=== PATIENT | male | born 1945 | race Caucasian/White ===

== ENCOUNTER 2017-01-12 21:35 | Emergency (ER) | payer MEDICARE, OTHER ==
--- NOTE | 2017-01-12 21:57 | ERPHSYRPT ---
- History of Present Illness Time Seen by Provider: 01/12/17 21:56 Source: patient Exam Limitations: no limitations Patient Subjective Stated Complaint: pt states he began having ruq abd pain radiating into his rt chest approx 2 hours ago. Triage Nursing Assessment: pt alert and oriented, answers questions approp. pt ambulatory with steady gait noted, skin quesada, warm, and dry. abd soft and nontender to light palpation, bowel sounds present. respirations nonlabored with lungs cta. Physician History: ABOUT 6 HOURS AGO PT ATE BEANS AND ONIONS AND 3 HOURS LATER STARTED WITH RUQ/ EPIGASTRIC ABDOMINAL PAIN RADIATING TO THE LOWER CHEST WITH DIAPHORESIS. PT VOMITED X1 IN ER. PT DENIES FEVER, SHORTNESS OF AIR, DIARRHEA. Allergies/Adverse Reactions: Penicillins Allergy (Verified 01/12/17 21:58) Swelling of Tongue and Lips Home Medications: Amlodipine Besylate 5 mg [Norvasc 5 mg] 5 mg PO DAILY 01/12/17 [History] Lisinopril 20 mg [Zestril 20 MG] 20 mg PO DAILY 01/12/17 [History] Hx Tetanus, Diphtheria Vaccination/Date Given: No Hx Influenza Vaccination/Date Given: No Hx Pneumococcal Vaccination/Date Given: Yes Immunizations Up to Date: No - Review of Systems Constitutional: No Fever Cardiac: Chest Pain Abdominal/Gastrointestinal: Abdominal Pain, Vomiting, No Diarrhea Endocrine: Excessive Sweating All Other Systems: Reviewed and Negative - Social History Smoking Status: Never smoker Exposure to second hand smoke: No Patient Lives Alone: No - Nursing Vital Signs Nursing Vital Signs: Initial Vital Signs Temperature 97.6 F 01/12/17 21:40 Pulse Rate 86 01/12/17 21:40 Respiratory Rate 18 01/12/17 21:40 Blood Pressure 181/103 01/12/17 21:40 O2 Sat by Pulse Oximetry 95 01/12/17 21:40 Pain Scale Pain Intensity 7 - Physical Exam General Appearance: alert Eye Exam: PERRL/EOMI Ears, Nose, Throat Exam: TMs normal, pharynx normal, moist mucous membranes Neck Exam: normal inspection Respiratory Exam: lungs clear Cardiovascular Exam: normal heart sounds Gastrointestinal/Abdomen Exam: soft, normal bowel sounds, No tenderness Back Exam: normal range of motion Extremity Exam: normal inspection, No pedal edema Neurologic Exam: alert, cooperative Skin Exam: warm, dry SpO2 Interpretation: normal SpO2: 95 Oxygen Delivery: Room Air - Course Nursing assessment & vital signs reviewed: Yes EKG Interpreted by Me: RATE (90), Sinus Rhythm, NORMAL AXIS, LAFB, NORMAL INTERVALS - Radiology Exams Chest X-ray Interpretation: Interpreted by me, No Pneumonia - CT Exams Abdomen/Pelvis CT Interpretation: Tele-radiologist Report (NO ACUTE FINDINGS) Ordered Tests: Active Orders 24 hr Category Date Time Status Ceramics Teacher STAT Care 01/12/17 22:02 Active Clean Catch Urine Specimen STAT Care 01/12/17 22:01 Active EKG-ER Only STAT Care 01/12/17 22:04 Active IV Insertion STAT Care 01/12/17 22:01 Active Pulse Oximetry (ED) STAT Care 01/12/17 22:01 Active ABDOMEN AND PELVIS W/0 CONTRAS [CT] Stat Exams 01/12/17 22:03 Taken CHEST 1 VIEW (PORTABLE) Stat Exams 01/12/17 22:01 Taken AMYLASE Stat Lab 01/12/17 22:10 Completed CBC W DIFF Stat Lab 01/12/17 22:10 Completed CMP Stat Lab 01/12/17 22:10 Completed LIPASE Stat Lab 01/12/17 22:10 Completed MAGNESIUM Stat Lab 01/12/17 22:10 Completed TROPONIN Q3H Lab 01/12/17 22:10 Completed TROPONIN Q3H Lab 01/13/17 01:15 Ordered TROPONIN Q3H Lab 01/13/17 04:15 Ordered TROPONIN Q3H Lab 01/13/17 07:15 Ordered TROPONIN Q3H Lab 01/13/17 10:15 Ordered UA W/RFX UR CULTURE Stat Lab 01/12/17 22:01 Ordered Medication Summary Discontinued Medications Generic Name Dose Route Start Last Admin Trade Name Freq PRN Reason Stop Dose Admin Hydromorphone HCl 1 mg 01/12/17 22:03 01/12/17 22:13 Hydromorphone 1 Mg/Ml Ampule IV 01/12/17 22:04 1 mg STAT ONE Administration Hydromorphone HCl Confirm 01/12/17 22:08 Hydromorphone 1 Mg/Ml Ampule Administered 01/12/17 22:09 Dose 1 mg .ROUTE .STK-MED ONE Sodium Chloride 1,000 mls @ 999 mls/hr 01/12/17 22:01 01/12/17 22:14 Sodium Chloride 0.9% 1000 Ml IV 01/12/17 23:01 999 mls/hr .Q1H1M STA Administration Sodium Chloride Confirm 01/12/17 22:09 Sodium Chloride 0.9% 1000 Ml Administered 01/12/17 22:10 Dose 1,000 mls @ ud .ROUTE .STK-MED ONE Promethazine HCl 12.5 mg 01/12/17 22:01 01/12/17 22:14 Phenergan 25 Mg Inj IV 01/12/17 22:02 12.5 mg STAT ONE Administration Promethazine HCl Confirm 01/12/17 22:09 Phenergan 25 Mg Inj Administered 01/12/17 22:10 Dose 25 mg .ROUTE .STK-MED ONE Lab/Rad Data: Laboratory Result Diagrams 01/12/17 22:10 01/12/17 22:10 Laboratory Results 01/12/17 01/12/17 01/12/17 Range/Units 22:10 22:10 22:10 WBC 6.6 (4.0-10.5) K/mm3 RBC 4.53 (4.1-5.6) M/mm3 Hgb 13.6 (12.5-18.0) gm/dl Hct 38.6 L (42-50) % MCV 85.2 (78-100) fl MCH 30.0 (26-32) pg MCHC 35.2 (32-36) g/dl RDW 13.1 (11.5-14.0) % Plt Count 216 (150-450) K/mm3 MPV 10.0 H (6-9.5) fl Gran % 73.8 H (36.0-66.0) % Lymphocytes % 14.0 L (24.0-44.0) % Monocytes % 10.9 (0.0-12.0) % Eosinophils % 1.1 (0.00-5.0) % Basophils % 0.2 (0.0-0.4) % Basophils # 0.01 (0-0.4) Sodium 132 L (136-145) mEq/L Potassium 3.6 (3.5-5.1) mEq/L Chloride 95 L (98-107) mEq/L Carbon Dioxide 25.3 (21-32) mEq/L Anion Gap 15.6 H (5-15) MEQ/L BUN 11 (9-20) mg/dL Creatinine 0.80 (0.55-1.30) mg/dl Estimated GFR > 60 ML/MIN Glucose 140 H (70-110) MG/DL Calcium 9.4 (8.5-10.1) mg/dL Magnesium 1.9 (1.8-2.4) mg/dL Total Bilirubin 0.70 (0.2-1.0) mg/dL AST 27 (15-37) U/L ALT 41 (12-78) U/L Alkaline Phosphatase 117 H (46-116) U/L Troponin I < 0.017 (0.000-0.056) ng/ml Serum Total Protein 7.9 (6.4-8.2) gm/dL Albumin 4.5 (3.4-5.0) g/dL Amylase 43 (25-115) U/L Lipase 147 (73-393) U/L - Departure Time of Disposition: 23:23 Departure Disposition: Home Clinical Impression: ABDOMINAL PAIN, CHEST PAIN, VOMITING Condition: Stable Critical Care Time: No Referrals: JEFERSON LANCASTER [Primary Care Provider] - Instructions: Abdominal Pain-Adult Additional Instructions: FOLLOW UP WITH PRIVATE DOCTOR TOMORROW. RETURN TO [facility] FOR GALLBLADDER ULTRASOUND. Prescriptions: Promethazine HCl 25 mg [Phenergan 25 mg] 25 mg PO Q4H PRN PRN #14 tablet PRN Reason: Nausea/Vomiting
[2017-01-12] MEDS ORDERED: Hydromorphone 1 mg/ml Ampule ONE ×2 (22:08→23:58)
[2017-01-12] MEDS ORDERED: Phenergan 25 MG INJ ONE (22:09)
[2017-01-12] MEDS ORDERED: Sodium Chloride 0.9% 1000 ML 1,000 ML ONE (22:09)
[2017-01-12] MEDS: Hydromorphone 1 mg/ml Ampule IV ONE (22:13)
[2017-01-12] MEDS: Sodium Chloride 0.9% 1000 ML 1,000 ML IV STA (22:14)
[2017-01-12] MEDS: Phenergan 25 MG INJ IV ONE (22:14)
[2017-01-12 22:15] LABS: BASOPHIL % 0.2 % (0.0-0.4); Eosinophil % 1.1 % (0.00-5.0); Granulocytes % 73.8 % (36.0-66.0); Mean Cell Volume 85.2 fl (78-100); Monocytes % 10.9 % (0.0-12.0); Platelet Count 216 K/mm3 (150-450); Red Blood Count 4.53 M/mm3 (4.1-5.6); Red Cell Distribution Width 13.1 % (11.5-14.0); White Blood Count 6.6 K/mm3 (4.0-10.5)
[2017-01-12 22:35] LABS: ALBUMIN 4.5 g/dL (3.4-5.0); ALKALINE PHOSPHATASE 117 U/L (46-116); ANION GAP 15.6 MEQ/L (5-15); BLOOD UREA NITROGEN 11 mg/dL (9-20); CHLORIDE 95 mEq/L (98-107); Carbon Dioxide 25.3 mEq/L (21-32); Glucose 140 MG/DL (70-110); LIPASE 147 U/L (73-393); MAGNESIUM 1.9 mg/dL (1.8-2.4); Potassium 3.6 mEq/L (3.5-5.1); SGOT/AST 27 U/L (15-37); SGPT/ALT 41 U/L (12-78); SODIUM 132 mEq/L (136-145); Total Protein 7.9 gm/dL (6.4-8.2)
[2017-01-12 23:38] LABS: ADD URINE CULTURE? NO (NO); Bilirubin NEGATIVE (NEGATIVE); Blood NEGATIVE Ery/ul (0-5); COMPLETE URINE MICROSCOPIC? NO; Collection Type VOID; Glucose NEGATIVE (NEGATIVE); Leukocyte Esterase NEGATIVE (NEGATIVE)
[2017-01-12] MEDS ORDERED: Zofran 4 MG/2 ML VIAL ONE (23:58)
[2017-01-13] MEDS: Hydromorphone 1 mg/ml Ampule IV ONE (00:02)
[2017-01-13] MEDS: Zofran 4 MG/2 ML VIAL IV ONE (00:02)
[2017-01-13 00:34] VITALS: BP 138/73; PULSE 72; O2SAT 97
--- NOTE | 2017-01-13 15:06 | XRAY ---
Exam: AP 70 semi-upright portable chest film from 2246 hrs. on 01/12/2017. Comparison: Two-view chest from 12/15/2016. Indication: Right upper quadrant abdominal pain 4 hours. Findings: The film was obtained in a mildly lordotic projection. The transverse heart size is normal. I believe there is some minimal curvilinear scarring or atelectasis at the medial right lung base. This correlates well with the current CT of the abdomen/pelvis. Otherwise, the lung velázquez appear clear. No vascular congestion, pneumothorax, or pleural fluid is seen. The heart size is normal. No mediastinal widening or shift is seen. There is mild tortuosity of the descending thoracic aorta. The bones appear grossly intact. Impression: 1. No acute cardiopulmonary process is seen. 2. I suspect minimal curvilinear scarring or atelectasis at the medial right lung base as an incidental note.
--- NOTE | 2017-01-13 15:07 | XRAY ---
Exam: CT of the abdomen and pelvis without IV contrast from 01/12/2017. CTDI: 24.04 Comparison: None. Indication: 71-year-old male with right upper quadrant abdominal pain 4 hours associated with nausea/vomiting. Technique: Non-IV contrast axial images were obtained through the abdomen and pelvis. Reconstructed coronal and sagittal images were created and reviewed. Findings: AP and lateral CT projector operator images reveal a mild upper lumbar rotary dextroscoliosis centered at L2-L3. In addition, moderate multilevel degenerative disc disease is seen throughout the lumbar spine. On the CT images, the lung bases are remarkable for minimal linear scarring or atelectasis at the anterior medial right lung base. There appears to be a small hiatal hernia. Abundant secretions mixed with some high attenuation material which may relate to a GI cocktail is seen within the gastric lumen. The transverse heart size is normal. Some right and left coronary artery vascular calcification is seen. Correlate clinically. The liver appears unremarkable on this non-IV contrast image. The gallbladder is distended and reveals a small amount of high attenuation density within its posterior dependent aspect suggestive of gallstones. No definite intrahepatic or extrahepatic biliary duct distention is seen. The spleen, pancreas, and adrenal glands appear unremarkable. The kidneys are of unremarkable size and shape. No renal stone or hydronephrosis is seen. There is a subtle small low-attenuation density within the peripheral middle third of the right kidney on axial image #31 which might represent a tiny cyst. Atherosclerotic facet calcification is seen within the abdominal aorta and its branches. No abdominal aortic aneurysm or abnormal retroperitoneal lymphadenopathy is seen. I do note some tortuosity of the abdominal aorta and proximal iliac arteries. No free intraperitoneal air is seen. The anterior abdominal wall appears intact. I see no evidence of bowel obstruction. I see no findings of appendicitis within the right lower quadrant. Mild descending colon and sigmoid colon diverticulosis without evidence of acute diverticulitis is seen. There is moderate distention of the urinary bladder which appears grossly unremarkable. No urinary bladder stones are seen. The prostate gland is mildly enlarged measuring 5.6 cm in width and 4.6 cm in AP depth on axial image #80. No enlarged pelvic lymph nodes or free intraperitoneal fluid is seen. The skeleton reveals no acute fracture. No suspicious osteolytic or osteoblastic bone lesions are seen. I again note a mild upper lumbar rotary dextroscoliosis and multilevel moderate degenerative disc disease, affecting L-1L2 through L4L5 primarily. Impression: 1. There is a small hiatal hernia present with secretions and high attenuation material within it which may relate to gastroesophageal reflux. Correlate clinically. 2. In addition, there is a small amount of high attenuation material within the posterior dependent portion of the gallbladder suggestive of cholelithiasis. No gallbladder enlargement, gallbladder wall thickening, or biliary duct distention is seen. 3. Normal appendix. 4. Mild diverticulosis is seen throughout the descending colon and sigmoid colon. No acute diverticulitis is seen. 5. No other acute process is seen within the abdomen or pelvis. 6. Mild enlargement of the prostate gland. 7. Skeletal findings as discussed above.
== END 2017-01-13 00:37 | disposition home or self-care (01) ==
LOC: ED 21:35
DX: R10.9 Unspecified abdominal pain (principal); R07.9 Chest pain, unspecified; R11.10 Vomiting, unspecified
CPT/HCPCS: 36000; 36415; 71010; 74176; 80053; 81002; 82150; 83690; 83735; 84484; 85025; 93005; 93041; 96374; 96375; 96376; 99284; J1170; J2405; J2550

== ENCOUNTER 2017-01-15 04:35 | Inpatient (IN) | payer MEDICARE, OTHER ==
[2017-01-15] MEDS ORDERED: Hydromorphone 1 mg/ml Ampule IV ONE (04:59)
[2017-01-15] MEDS ORDERED: Sodium Chloride 0.9% 1000 ML 1,000 ML IV STA ×2 (04:59→05:21)
[2017-01-15] MEDS ORDERED: Phenergan 25 MG INJ IV ONE (04:59)
--- NOTE | 2017-01-15 05:07 | ERPHSYRPT ---
- History of Present Illness Time Seen by Provider: 01/15/17 04:50 Historian: patient Exam Limitations: no limitations Patient Subjective Stated Complaint: pt states he was seen in the er on wednesday and had a gallbladder us on wednesday. stated he ate some jello tonght and has increased pain in his luq. Triage Nursing Assessment: pt alert and oriented, asnwers questions approp. skin quesada, hot and dry. pt ambulatory with steady gait ntoed. respirations tachy , nonlabored, lungs cta. abd soft, tenderness to light palpation to luq. bowel sounds hypo. Physician History: FOUR DAYS AGO PT HAD RUQ ABDOMINAL/EPIGASTRIC PAIN AND DIAPHORESIS WITH VOMITING X1. PT CAME TO [facility] ER WHERE A CT-SCAN OF THE ABDOMEN/PELVIS TELE- RADIOLOGIST REPORT REVEALED NO ACUTE FINDINGS. FOR THE PAST 2 DAYS PT HAS HAD DIARRHEA, THIRST, SUBJECTIVE FEVER AND CHILLS. PT HAD A GALLBLADDER ULTRASOUND YESTERDAY WITH ABDOMINAL ULTRASOUND WORKSHEET SHOWING SLUDGE AND STONES. PT RETURNS TO ER TONIGHT AFTER THE PAIN RETURNED 5 HOURS AGO. Allergies/Adverse Reactions: Penicillins Allergy (Verified 01/12/17 21:58) Swelling of Tongue and Lips Home Medications: Amlodipine Besylate 5 mg [Norvasc 5 mg] 5 mg PO DAILY 01/12/17 [History] Lisinopril 20 mg [Zestril 20 MG] 20 mg PO DAILY 01/12/17 [History] Hx Tetanus, Diphtheria Vaccination/Date Given: No Hx Influenza Vaccination/Date Given: No Hx Pneumococcal Vaccination/Date Given: Yes Immunizations Up to Date: No - Review of Systems Constitutional: Fever, Chills, Other (THIRST) Abdominal/Gastrointestinal: Abdominal Pain, Diarrhea All Other Systems: Reviewed and Negative - Past Medical History Pertinent Past Medical History: Yes Cardiac History: Hypertension - Past Surgical History Past Surgical History: No - Social History Smoking Status: Never smoker Exposure to second hand smoke: No Drug Use: none Patient Lives Alone: No - Nursing Vital Signs Nursing Vital Signs: Initial Vital Signs Temperature 100.0 F 01/15/17 04:37 Pulse Rate 127 H 01/15/17 04:37 Respiratory Rate 28 H 01/15/17 04:37 Blood Pressure 118/73 01/15/17 04:37 O2 Sat by Pulse Oximetry 97 01/15/17 04:37 Pain Scale Pain Intensity 0 - Physical Exam General Appearance: alert Eye Exam: PERRL/EOMI Ears, Nose, Throat Exam: dry mucous membranes Neck Exam: normal inspection Respiratory Exam: lungs clear Cardiovascular Exam: tachycardia Gastrointestinal/Abdomen Exam: soft, normal bowel sounds, tenderness (MILD RUQ ABDOMINAL TENDERNESS), No guarding Back Exam: normal range of motion Extremity Exam: normal inspection, No pedal edema Neurologic Exam: alert, cooperative Skin Exam: warm, dry SpO2 Interpretation: normal SpO2: 97 Oxygen Delivery: Room Air - Course Nursing assessment & vital signs reviewed: Yes Ordered Tests: Active Orders 24 hr Category Date Time Status IV Insertion STAT Care 01/15/17 04:59 Active AMYLASE Stat Lab 01/15/17 04:50 Completed BLOOD CULTURE Stat Lab 01/15/17 05:20 Received BMP Stat Lab 01/15/17 06:14 Stop Req CBC W DIFF Stat Lab 01/15/17 04:50 Completed CMP Stat Lab 01/15/17 04:50 Completed LIPASE Stat Lab 01/15/17 04:50 Completed Lactic Acid Stat Lab 01/15/17 Stop Req Lactic Acid Stat Lab 01/15/17 05:20 Results MAG [MAGNESIUM] Stat Lab 01/15/17 04:50 Completed MAGNESIUM Stat Lab 01/15/17 06:14 Stop Req Manual Differential NC Stat Lab 01/15/17 04:50 Completed UA W/RFX UR CULTURE Stat Lab 01/15/17 04:59 Ordered Medication Summary Discontinued Medications Generic Name Dose Route Start Last Admin Trade Name Freq PRN Reason Stop Dose Admin Hydromorphone HCl 1 mg 01/15/17 04:59 01/15/17 05:19 Hydromorphone 1 Mg/Ml Ampule IV 01/15/17 05:00 1 mg STAT ONE Administration Hydromorphone HCl Confirm 01/15/17 05:08 Hydromorphone 1 Mg/Ml Ampule Administered 01/15/17 05:09 Dose 1 mg .ROUTE .STK-MED ONE Sodium Chloride 1,000 mls @ 999 mls/hr 01/15/17 04:59 01/15/17 05:13 Sodium Chloride 0.9% 1000 Ml IV 01/15/17 05:59 999 mls/hr .Q1H1M STA Administration Sodium Chloride Confirm 01/15/17 05:08 Sodium Chloride 0.9% 1000 Ml Administered 01/15/17 05:09 Dose 1,000 mls @ ud .ROUTE .STK-MED ONE Ceftriaxone Sodium/Dextrose 1 g in 50 mls @ 100 mls/hr 01/15/17 05:12 05:24 Rocephin 1 Gm-D5w 50 Ml Bag IV 01/15/17 05:41 100 mls/hr STAT STA Administration Ceftriaxone Sodium/Dextrose Confirm 01/15/17 05:20 Rocephin 1 Gm-D5w 50 Ml Bag Administered 01/15/17 05:21 Dose 1 g in 50 mls @ ud IV .STK-MED ONE Sodium Chloride 1,000 mls @ 999 mls/hr 01/15/17 05:21 01/15/17 05:54 Sodium Chloride 0.9% 1000 Ml IV 01/15/17 06:21 999 mls/hr .Q1H1M STA Administration Magnesium Sulfate/Dextrose 100 mls @ 200 mls/hr 01/15/17 05:49 01/15/17 05:54 Magnesium 1 Gm / 100 Ml D5w IV 01/15/17 06:18 200 mls/hr STAT ONE Administration Magnesium Sulfate/Dextrose Confirm 01/15/17 05:53 Magnesium 1 Gm / 100 Ml D5w Administered 01/15/17 05:54 Dose 100 mls @ ud IV .STK-MED ONE Sodium Chloride Confirm 01/15/17 05:53 Sodium Chloride 0.9% 1000 Ml Administered 01/15/17 05:54 Dose 1,000 mls @ ud .ROUTE .STK-MED ONE Promethazine HCl 12.5 mg 01/15/17 04:59 01/15/17 05:13 Phenergan 25 Mg Inj IV 01/15/17 05:00 12.5 mg STAT ONE Administration Promethazine HCl Confirm 01/15/17 05:08 Phenergan 25 Mg Inj Administered 01/15/17 05:09 Dose 25 mg .ROUTE .STK-MED ONE Lab/Rad Data: Laboratory Result Diagrams 01/15/17 04:50 01/15/17 04:50 Laboratory Results 01/15/17 01/15/17 01/15/17 Range/Units 05:20 04:50 04:50 WBC (4.0-10.5) K/mm3 RBC (4.1-5.6) M/mm3 Hgb (12.5-18.0) gm/dl Hct (42-50) % MCV (78-100) fl MCH (26-32) pg MCHC (32-36) g/dl RDW (11.5-14.0) % Plt Count (150-450) K/mm3 MPV (6-9.5) fl Segmented Neutrophils (36.-66.) % Band Neutrophils (0.0-2.0) % Lymphocytes (Manual) (24-44) % Monocytes (Manual) (0.0-12.0) % Differential Comment Toxic Granulation Platelet Estimate (NORMAL) Sodium 121 L (136-145) mEq/L Potassium 3.8 (3.5-5.1) mEq/L Chloride 87 L (98-107) mEq/L Carbon Dioxide 23.4 (21-32) mEq/L Anion Gap 14.5 (5-15) MEQ/L BUN 18 (9-20) mg/dL Creatinine 1.20 (0.55-1.30) mg/dl Estimated GFR > 60 ML/MIN Glucose 118 H (70-110) MG/DL Lactic Acid 2.6 H (0.4-2.0) Calcium 8.7 (8.5-10.1) mg/dL Magnesium 1.5 L (1.8-2.4) mg/dL Total Bilirubin 1.70 H (0.2-1.0) mg/dL AST 23 (15-37) U/L ALT 23 (12-78) U/L Alkaline Phosphatase 99 (46-116) U/L Serum Total Protein 7.4 (6.4-8.2) gm/dL Albumin 3.4 (3.4-5.0) g/dL Amylase 18 L (25-115) U/L Lipase 64 L (73-393) U/L 01/15/17 Range/Units 04:50 WBC 12.9 H (4.0-10.5) K/mm3 RBC 4.93 (4.1-5.6) M/mm3 Hgb 14.9 (12.5-18.0) gm/dl Hct 41.2 L (42-50) % MCV 83.6 (78-100) fl MCH 30.2 (26-32) pg MCHC 36.2 H (32-36) g/dl RDW 13.8 (11.5-14.0) % Plt Count 167 (150-450) K/mm3 MPV 10.7 H (6-9.5) fl Segmented Neutrophils 85 H (36.-66.) % Band Neutrophils 4 H (0.0-2.0) % Lymphocytes (Manual) 9 L (24-44) % Monocytes (Manual) 2 (0.0-12.0) % Differential Comment NORMAL Toxic Granulation 2+ Platelet Estimate NORMAL (NORMAL) Sodium (136-145) mEq/L Potassium (3.5-5.1) mEq/L Chloride (98-107) mEq/L Carbon Dioxide (21-32) mEq/L Anion Gap (5-15) MEQ/L BUN (9-20) mg/dL Creatinine (0.55-1.30) mg/dl Estimated GFR ML/MIN Glucose (70-110) MG/DL Lactic Acid (0.4-2.0) Calcium (8.5-10.1) mg/dL Magnesium (1.8-2.4) mg/dL Total Bilirubin (0.2-1.0) mg/dL AST (15-37) U/L ALT (12-78) U/L Alkaline Phosphatase (46-116) U/L Serum Total Protein (6.4-8.2) gm/dL Albumin (3.4-5.0) g/dL Amylase (25-115) U/L Lipase (73-393) U/L - Progress Discussed with : Justnya (TQP - [id number]), Other (SPOKE WITH Suly JENKINS M.D.( SURGEON) - WILL CONSULT THIS AM.) - Departure Time of Disposition: 06:23 Departure Disposition: Observation Clinical Impression: HTN, HYPONATREMIA, HYPOMAGNESEMIA, ACUTE CHOLECYSTITIS/CHOLELITHIASIS Condition: Stable Critical Care Time: Yes Critical Care Time(excluding separately billable procedures): 30-74 minutes Referrals: JEFERSON LANCASTER [Primary Care Provider] -
[2017-01-15] MEDS ORDERED: Sodium Chloride 0.9% 1000 ML 1,000 ML ONE ×2 (05:08→05:53)
[2017-01-15] MEDS ORDERED: Hydromorphone 1 mg/ml Ampule ONE (05:08)
[2017-01-15] MEDS ORDERED: Phenergan 25 MG INJ ONE (05:08)
[2017-01-15] MEDS ORDERED: ROCEPHIN 1 Gm-D5w 50 ml Bag** 1 G/50 ML IVPB IV STA (05:12)
[2017-01-15 05:14] LABS: Mean Cell Volume 83.6 fl (78-100); Mean Corpuscular Hemoglobin 30.2 pg (26-32); Mean Platelet Volume 10.7 fl (6-9.5); Platelet Count 167 K/mm3 (150-450); Red Blood Count 4.93 M/mm3 (4.1-5.6); Red Cell Distribution Width 13.8 % (11.5-14.0); White Blood Count 12.9 K/mm3 (4.0-10.5)
[2017-01-15] MEDS ORDERED: ROCEPHIN 1 Gm-D5w 50 ml Bag** 1 G/50 ML IVPB IV ONE (05:20)
[2017-01-15 05:27] LABS: Lactic Acid 2.6 (0.4-2.0)
[2017-01-15 05:37] LABS: ALBUMIN 3.4 g/dL (3.4-5.0); ALKALINE PHOSPHATASE 99 U/L (46-116); ANION GAP 14.5 MEQ/L (5-15); BLOOD UREA NITROGEN 18 mg/dL (9-20); CHLORIDE 87 mEq/L (98-107); Carbon Dioxide 23.4 mEq/L (21-32); Glucose 118 MG/DL (70-110); LIPASE 64 U/L (73-393); Potassium 3.8 mEq/L (3.5-5.1); SGOT/AST 23 U/L (15-37); SGPT/ALT 23 U/L (12-78); SODIUM 121 mEq/L (136-145); Total Protein 7.4 gm/dL (6.4-8.2)
[2017-01-15] MEDS ORDERED: Magnesium 1 Gm / 100 Ml D5W*** 100 ML IV ONE ×3 (05:49→07:15)
[2017-01-15 06:09] LABS: BAND 4 % (0.0-2.0); Platelet Estimate NORMAL (NORMAL); Total Cells Counted 100; Toxic Granulation 2+
[2017-01-15] MEDS ORDERED: Zofran 4 MG/2 ML VIAL IV ONE (06:58)
[2017-01-15] MEDS ORDERED: Zemuron 100 MG/10 ML IV ONE (06:58)
[2017-01-15] MEDS ORDERED: Decadron 4 MG INJ IV ONE (06:58)
[2017-01-15] MEDS ORDERED: Quelicin Fliptop 200 MG/10 ML IV ONE (06:58)
[2017-01-15] MEDS ORDERED: BRIDION 200MG/2ML IV ONE (06:58)
[2017-01-15] MEDS ORDERED: TORAdol 30 mg Injection IJ ONE (06:58)
[2017-01-15] MEDS ORDERED: DIPRIVAN 200 MG/20 ML IV ONE (06:58)
[2017-01-15] MEDS ORDERED: Phenergan 25 MG INJ IV PRN (07:00)
[2017-01-15] MEDS ORDERED: DILAUDID 2 MG INJECTION IV PRN (07:00)
[2017-01-15] MEDS ORDERED: Zofran 4 MG/2 ML VIAL IV PRN (07:00)
[2017-01-15] MEDS: Sodium Chloride 0.9% 1000 ML 1,000 ML IV SCH ×3 (07:57→23:03)
[2017-01-15 08:33] LABS: Mean Cell Volume 84.4 fl (78-100); Mean Corpuscular Hemoglobin 29.8 pg (26-32); Mean Platelet Volume 10.5 fl (6-9.5); Platelet Count 145 K/mm3 (150-450); Red Blood Count 4.36 M/mm3 (4.1-5.6); Red Cell Distribution Width 13.7 % (11.5-14.0); White Blood Count 11.2 K/mm3 (4.0-10.5)
--- NOTE | 2017-01-15 08:47 | HP ---
CHIEF COMPLAINT: Right upper quadrant abdominal pain. HISTORY OF PRESENT ILLNESS: The patient is a 72 year-old white male who has been complaining of abdominal pain over the past couple of days. He has been seen in the emergency room and ultrasound was set up for outpatient. He had this performed and the preliminary reading reported sludge and stones in the gallbladder. The patient represented to due to increasing pain in the steward/stewardess hours of 01/15/2017 with exquisite tenderness in the right upper quadrant. He was admitted to the hospital. Surgical consultation with Dr. Thu Bonilla over the phone was that she would be in to see him and perform laparoscopic cholecystectomy later this morning. He has since developed a bit of a temperature with fever of 100.0F. PAST MEDICAL/SURGICAL HISTORY: Otherwise significant for hypertension. MEDICATIONS: He takes amlodipine 5 mg a day, lisinopril 20 mg a day. He has received Rocephin from the emergency room as a preliminary medication to cover. ALLERGIES: PENICILLIN. PHYSICAL EXAMINATION: Vital signs again the temperature 100.0F oral, pulse 127, respiratory rate 28, blood pressure 118/73. O2 saturation 97% on room air. HEENT: Normocephalic, atraumatic. Pupils equal round reactive to light. Extraocular movements intact. Oropharynx is somewhat dry. NECK: Supple without lymphadenopathy, thyromegaly or JVD. CHEST: Clear to auscultation with good air movement bilaterally. HEART: Regular rate and rhythm somewhat tachycardic. ABDOMEN: Exquisitely tender in the right upper quadrant. No palpable masses are felt. EXTREMITIES: Without clubbing, cyanosis or edema. NEUROLOGIC: The patient is alert and oriented x3 with no focal deficits. LAB DATA AND TESTS: Lab studies from the emergency room were lactic acid of 2.0. His white blood cell count was 12,900 with 4 bands and 85 polys. His hemoglobin was 14.9, PLT count 167,000. The second lactic acid level was noted at 2.6. Magnesium was low at 1.5. Sugar was 118 nonfasting, BUN 18, creatinine 1.2. Sodium was low at 121, potassium normal. Liver enzymes appear to be normal. Amylase and lipase are actually low. ASSESSMENT: A patient with acute cholecystitis and cholelithiasis pending surgical consultation. He has been started on Rocephin IV. We will continue him NPO in anticipation of surgery and given IV fluids hydration.
[2017-01-15] MEDS ORDERED: FEVERALL 650 MG PR PRN (08:52)
[2017-01-15] MEDS ORDERED: Lactated Ringers 1,000 ML IV SCH (09:00)
[2017-01-15 09:01] LABS: ALBUMIN 2.8 g/dL (3.4-5.0); ALKALINE PHOSPHATASE 75 U/L (46-116); ANION GAP 13.1 MEQ/L (5-15); BLOOD UREA NITROGEN 17 mg/dL (9-20); CHLORIDE 91 mEq/L (98-107); Carbon Dioxide 23.3 mEq/L (21-32); Glucose 107 MG/DL (70-110); MAGNESIUM 1.9 mg/dL (1.8-2.4); Potassium 4.3 mEq/L (3.5-5.1); SGOT/AST 21 U/L (15-37); SGPT/ALT 13 U/L (12-78); SODIUM 123 mEq/L (136-145); Total Protein 6.3 gm/dL (6.4-8.2)
[2017-01-15 09:14] LABS: TROPONIN < 0.017 ng/ml (0.000-0.056)
[2017-01-15 09:31] LABS: Direct Bilirubin 0.27 MG/DL (0.0-0.2)
[2017-01-15 09:54] LABS: BAND 15 % (0.0-2.0); Total Cells Counted 100
[2017-01-15 09:58] LABS: Platelet Estimate NORMAL (NORMAL)
[2017-01-15] MEDS ORDERED: FLUZONE HIGH-DOSE 2017-18 SYR IM ONE (10:00)
--- NOTE | 2017-01-15 10:34 | XRAY ---
Exam: Gallbladder ultrasound examination from 01/15/2017. Comparison: Gallbladder ultrasound examination from 01/14/2017. Indication: Right upper quadrant abdominal pain, declining condition from 24 hours ago. Findings: The gallbladder again reveals abundant echogenic biliary sludge and densely calcified gallstones mixed together within the lumen diagnostic of cholelithiasis. The gallbladder wall measures about 4 mm in diameter. Also, there now appears to be a small amount of pericholecystic fluid superior and medial to the gallbladder. These findings are worrisome for concomitant cholecystitis and representing adverse change.. No intrahepatic biliary duct distention is seen. The proximal common bile duct measures 5 mm in diameter which is normal. No intrahepatic biliary duct distention is seen. The right kidney measures 10.4 cm in length and reveals no mass or hydronephrosis. The pancreas is obscured by overlying bowel gas. Impression: 1. Findings consistent with moderately extensive cholelithiasis and intraluminal biliary sludge. In addition, there has been development of some mild gallbladder wall thickening which now measures up to 4 mm in diameter as well as a new mild amount of concomitant pericholecystic fluid. This may be due to concomitant acute cholecystitis. I called this report to the floor nurse at 10:25 AM on 01/15/2017. 2. No intrahepatic or extrahepatic biliary duct distention is seen.
[2017-01-15] MEDS: PROTONIX 40 MG IV IV SCH (10:55)
[2017-01-15] MEDS ORDERED: Levofloxacin 500MG/100ML D5W 500 MG/100 ML BAG IV SCH (12:00)
[2017-01-15] MEDS ORDERED: CLINDAMYCIN-D5W 900 MG/50 ML*** 900 MG/50 ML BAG IV SCH (12:00)
[2017-01-15 12:40] LABS: ADD URINE CULTURE? YES (NO); Bilirubin NEGATIVE (NEGATIVE); Blood 250 Ery/ul (0-5); COMPLETE URINE MICROSCOPIC? YES; Collection Type VOID; Glucose NEGATIVE (NEGATIVE); Leukocyte Esterase TRACE (NEGATIVE)
[2017-01-15 12:46] LABS: Bacteria FEW /HPF (NEGATIVE); Epithelial Cells RARE /HPF (FEW); WBC 0-2 /HPF (0-5)
[2017-01-15] MEDS ORDERED: Lactated Ringers 1,000 ML IV ONE (13:19)
[2017-01-15] MEDS ORDERED: Sensorcaine 0.25% 10 ML ONE (13:19)
[2017-01-15] MEDS ORDERED: SUBLIMAZE 100 MCG/2 ML IV ONE (17:29)
[2017-01-15] MEDS: FLAGYL 500 MG IVPB 500 MG/100 ML BAG IV SCH (17:47)
[2017-01-16] MEDS ORDERED: PROVENTIL 2.5 MG/3 ML NEB IH ONE ×2 (00:44→00:48)
[2017-01-16] MEDS: NORCO 5/325 MG PO PRN ×2 (01:28→13:52)
[2017-01-16] MEDS: Sodium Chloride 0.9% 1000 ML 1,000 ML IV SCH ×3 (03:31→20:23)
[2017-01-16] MEDS: FLAGYL 500 MG IVPB 500 MG/100 ML BAG IV SCH (05:19)
[2017-01-16] MEDS ORDERED: ROCEPHIN 1 Gm-D5w 50 ml Bag** 1 G/50 ML IVPB IV SCH (06:00)
[2017-01-16 06:07] LABS: Mean Cell Volume 86.1 fl (78-100); Mean Corpuscular Hemoglobin 29.8 pg (26-32); Mean Platelet Volume 11.3 fl (6-9.5); Platelet Count 121 K/mm3 (150-450); Red Blood Count 4.16 M/mm3 (4.1-5.6); Red Cell Distribution Width 14.2 % (11.5-14.0); White Blood Count 9.6 K/mm3 (4.0-10.5)
[2017-01-16 06:32] LABS: ALBUMIN 2.6 g/dL (3.4-5.0); ALKALINE PHOSPHATASE 81 U/L (46-116); ANION GAP 12.9 MEQ/L (5-15); BLOOD UREA NITROGEN 19 mg/dL (9-20); CHLORIDE 100 mEq/L (98-107); Carbon Dioxide 23.3 mEq/L (21-32); Glucose 125 MG/DL (70-110); Potassium 3.9 mEq/L (3.5-5.1); SGOT/AST 38 U/L (15-37); SGPT/ALT 38 U/L (12-78); SODIUM 132 mEq/L (136-145); Total Protein 5.6 gm/dL (6.4-8.2)
[2017-01-16 06:39] LABS: ALBUMIN 2.6 g/dL (3.4-5.0); BILIRUBIN,TOTAL 0.9 mg/dL (0.2-1.0); Direct Bilirubin 0.24 MG/DL (0.0-0.2); Total Protein 6.2 gm/dL (6.4-8.2)
[2017-01-16 08:06] LABS: BAND 8 % (0.0-2.0); Total Cells Counted 100
[2017-01-16 08:07] LABS: Platelet Estimate DECREASED (NORMAL)
[2017-01-16] MEDS: PROTONIX 40 MG IV IV SCH (08:53)
[2017-01-16] MEDS: Levofloxacin 500MG/100ML D5W 500 MG/100 ML BAG IV SCH (08:54)
[2017-01-16] MEDS ORDERED: FLUZONE HIGH-DOSE 2017-18 SYR IM ONE (10:00)
--- NOTE | 2017-01-16 13:11 | PCM.NOTE ---
Date and Time: 01/16/17 1303 Subjective Assessment: Pt is tolerating ice chips, would like to have a big Coke. He is c/o some sharp pains in RUQ that were somewhat present prior to surgery but have worsened since the surgery. Objective Exam General Appearance: no apparent distress, alert Neurologic Exam: oriented x 3, cooperative Skin Exam: normal color, warm, dry Respiratory Exam: normal breath sounds, lungs clear, No crackles/rales, No rhonchi, No wheezing Cardiovascular Exam: regular rate/rhythm, normal heart sounds, No murmur Gastrointestinal/Abdomen Exam: soft, distention (throughout), other (bowel sounds present. dressing c/d/i - YOLY drain present with serous drainage.), No mass Extremity Exam: No pedal edema, No swelling Back Exam: normal inspection OBJECTIVE DATA Vital Signs: Vital Signs - 24 hr Temp Pulse Resp BP Pulse Ox 01/16/17 08:34 93 L 01/16/17 07:33 97.8 F 89 20 166/88 97 01/16/17 07:00 97 01/16/17 04:00 98.2 F 101 H 22 176/93 94 L 01/16/17 00:00 98.4 F 97 H 18 164/85 95 01/15/17 21:00 98.3 F 87 14 133/69 92 L 01/15/17 17:44 98.7 F 95 H 18 132/70 93 L 01/15/17 17:21 98.6 F 01/15/17 16:59 99.5 F 99 H 18 116/76 91 L 01/15/17 16:10 99.0 F 95 H 18 114/66 95 01/15/17 16:00 99 F 01/15/17 15:40 98.7 F 100 H 18 132/68 91 L Oxygen-Last 24 hours O2 Percentage 2 Liters = 28% O2 Percentage 2 Liters = 28% Pain Assessment - Last Documented Pain Intensity 5 Pain Scale Used 0-10 Pain Scale Intake and Output: Intake & Output 01/14/17 01/15/17 01/16/17 01/17/17 11:59 11:59 11:59 11:59 Intake Total 2382 Output Total 2770 Balance -388 Weight 81.193 kg 81.647 kg Lab Results: Lab Results-Last 24 Hours 01/16/17 01/16/17 01/16/17 Range/Units 05:30 05:30 05:30 WBC 9.6 (4.0-10.5) K/mm3 RBC 4.16 (4.1-5.6) M/mm3 Hgb 12.4 L (12.5-18.0) gm/dl Hct 35.8 L (42-50) % MCV 86.1 (78-100) fl MCH 29.8 (26-32) pg MCHC 34.6 (32-36) g/dl RDW 14.2 H (11.5-14.0) % Plt Count 121 L (150-450) K/mm3 MPV 11.3 H (6-9.5) fl Segmented Neutrophils 82 H (36.-66.) % Band Neutrophils 8 H (0.0-2.0) % Lymphocytes (Manual) 2 L (24-44) % Monocytes (Manual) 8 (0.0-12.0) % Differential Comment NORMAL Platelet Estimate DECREASED (NORMAL) Sodium 132 L (136-145) mEq/L Potassium 3.9 (3.5-5.1) mEq/L Chloride 100 (98-107) mEq/L Carbon Dioxide 23.3 (21-32) mEq/L Anion Gap 12.9 (5-15) MEQ/L BUN 19 (9-20) mg/dL Creatinine 0.78 (0.55-1.30) mg/dl Estimated GFR > 60 ML/MIN Glucose 125 H (70-110) MG/DL Calcium 8.0 L (8.5-10.1) mg/dL Total Bilirubin 0.90 0.90 (0.2-1.0) mg/dL Direct Bilirubin 0.24 H (0.0-0.2) MG/DL AST 38 H 38 H (15-37) U/L ALT 38 37 (12-78) U/L Alkaline Phosphatase 81 84 (46-116) U/L Serum Total Protein 5.6 L 6.2 L (6.4-8.2) gm/dL Albumin 2.6 L 2.6 L (3.4-5.0) g/dL Assessment/Plan (1) History of cholecystectomy Current Visit: Yes Status: Acute Assessment & Plan: POD #1, I think his abd pain is due to gas/distension. His abd is somewhat more firm than usual but still soft, I think just due to distension and muscle tone. Will do a plain film. He states that flagyl makes him sweat and made him hallucinate. Will d/c the flagyl, leave him on levaquin. WBC were wnl this morning - will check again tomorrow. Code(s): Z90.49 - ACQUIRED ABSENCE OF OTHER SPECIFIED PARTS OF DIGESTIVE TRACT (2) Hyponatremia Current Visit: Yes Status: Acute Assessment & Plan: Improved from 121 on admission to 132. Code(s): E87.1 - HYPO-OSMOLALITY AND HYPONATREMIA
[2017-01-16] MEDS ORDERED: TRANDATE 100 MG/20 ML MDV FOR DRIP IV PRN (13:30)
[2017-01-16] MEDS: NORVASC 5 MG PO SCH (13:48)
[2017-01-16] MEDS: ENOXAPARIN SODIUM SQ SCH (13:48)
[2017-01-16] MEDS: Zestril 20 MG PO SCH (14:50)
--- NOTE | 2017-01-16 20:59 | XRAY ---
Indication: Abdominal distention. Status post cholecystectomy 1 day. Comparison: None 2 views of the abdomen demonstrates postoperative changes related to cholecystectomy including cholecystectomy clips, right upper quadrant drainage tubing, small free air, and mild postoperative ileus. Osseous structures intact with osteopenia and lumbar degenerative changes. Comment: Preliminary interpretation was made by [facility]. No discrepancy.
[2017-01-17] MEDS: Sodium Chloride 0.9% 1000 ML 1,000 ML IV SCH ×2 (00:42→13:26)
[2017-01-17] MEDS ORDERED: Lasix 20 MG/2 ML IV ONE (02:00)
[2017-01-17 06:57] LABS: Mean Cell Volume 85.8 fl (78-100); Mean Corpuscular Hemoglobin 30.3 pg (26-32); Mean Platelet Volume 11.3 fl (6-9.5); Platelet Count 163 K/mm3 (150-450); Red Blood Count 4.16 M/mm3 (4.1-5.6); Red Cell Distribution Width 14.3 % (11.5-14.0); White Blood Count 12.7 K/mm3 (4.0-10.5)
[2017-01-17 07:15] LABS: ALBUMIN 2.7 g/dL (3.4-5.0); BILIRUBIN,TOTAL 1.3 mg/dL (0.2-1.0); Direct Bilirubin 0.29 MG/DL (0.0-0.2); Total Protein 6.3 gm/dL (6.4-8.2)
[2017-01-17 07:23] LABS: ALBUMIN 2.7 g/dL (3.4-5.0); ALKALINE PHOSPHATASE 99 U/L (46-116); ANION GAP 12.8 MEQ/L (5-15); BLOOD UREA NITROGEN 19 mg/dL (9-20); CHLORIDE 100 mEq/L (98-107); Glucose 95 MG/DL (70-110); Potassium 3.8 mEq/L (3.5-5.1); SGOT/AST 40 U/L (15-37); SGPT/ALT 46 U/L (12-78); SODIUM 135 mEq/L (136-145); Total Protein 5.8 gm/dL (6.4-8.2)
[2017-01-17] MEDS: PROTONIX 40 MG IV IV SCH (08:45)
[2017-01-17] MEDS: ENOXAPARIN SODIUM SQ SCH (08:45)
[2017-01-17] MEDS: Zestril 20 MG PO SCH (08:45)
[2017-01-17] MEDS: NORVASC 5 MG PO SCH (08:45)
[2017-01-17] MEDS: Levofloxacin 500MG/100ML D5W 500 MG/100 ML BAG IV SCH (08:46)
[2017-01-17 11:15] LABS: BAND 7 % (0.0-2.0); Total Cells Counted 100
[2017-01-17 11:19] LABS: Platelet Estimate NORMAL (NORMAL)
[2017-01-17] MEDS ORDERED: FLAGYL 500 MG IVPB 500 MG/100 ML BAG IV SCH (13:30)
[2017-01-17] MEDS ORDERED: BENADRYL 50 MG/ML IV ONE (14:06)
--- NOTE | 2017-01-17 14:32 | PCM.NOTE ---
Date and Time: 01/17/171426 Subjective Assessment: Pt states his sharp RUQ pain from yesterday has resolved. Yesterday I stopped his flagyl as pt thought he had a reaction. Dr. Anuj Bonilla wanted to restart the flagyl as he did not think pt's "reaction" was related to the med. Chcf through the bag of flagyl and after 1.5 containers of IV contrsat, the pt got up and went to the bathroom. He came back and was shaky, HR 115, BP 200 systolic. He has been given IV benadryl; flagyl infusion has been stopped for now. EKG with no acute changes, possible RBBB which was not apparent on previous EKG but no ST changes. Some sinus arrhythmia. Sinus tachycardia. His shaking is somewhat less than it was initially. I discussed wi pharmacist, he stated such a reaction to flagyl would be rare but possible. - Review of Systems Respiratory: Short Of Breath Neurological: Other (shakiness) Objective Exam General Appearance: no apparent distress, alert Neurologic Exam: oriented x 3, cooperative, other (mild tremor most noticeable in UE bilat) Skin Exam: normal color, warm, dry Respiratory Exam: normal breath sounds, No crackles/rales, No rhonchi, No wheezing Cardiovascular Exam: regular rate/rhythm, normal heart sounds, No murmur Gastrointestinal/Abdomen Exam: soft, normal bowel sounds, tenderness (RUQ), distention (mod), No mass, No rebound Extremity Exam: No pedal edema, No swelling Back Exam: normal inspection OBJECTIVE DATA Vital Signs: Vital Signs - 24 hr Temp Pulse Resp BP Pulse Ox 01/17/17 11:43 97.4 F 103 H 18 165/75 97 01/17/17 08:00 97.1 F 110 H 18 185/89 96 01/17/17 07:00 96 01/17/17 04:00 98.3 F 106 H 22 181/86 90 L 01/17/17 00:00 98.3 F 106 H 26 H 172/83 94 L 01/16/17 20:00 97.9 F 104 H 24 170/93 95 01/16/17 16:06 98.3 F 102 H 20 148/78 95 Oxygen-Last 24 hours O2 Percentage 2 Liters = 28% O2 Percentage 2 Liters = 28% O2 Percentage 2 Liters = 28% O2 Percentage 2 Liters = 28% O2 Percentage 2 Liters = 28% O2 Percentage 2 Liters = 28% Pain Assessment - Last Documented Pain Intensity 0 Pain Scale Used 0-10 Pain Scale Intake and Output: Intake & Output 01/15/17 01/16/17 01/17/17 01/18/17 11:59 11:59 11:59 11:59 Intake Total 2382 3840 Output Total 2770 3520 Balance -388 320 Weight 81.193 kg 81.647 kg 82.191 kg Lab Results: Lab Results-Last 24 Hours 01/17/17 01/17/17 01/17/17 Range/Units 05:45 05:45 05:45 WBC 12.7 H (4.0-10.5) K/mm3 RBC 4.16 (4.1-5.6) M/mm3 Hgb 12.6 (12.5-18.0) gm/dl Hct 35.7 L (42-50) % MCV 85.8 (78-100) fl MCH 30.3 (26-32) pg MCHC 35.3 (32-36) g/dl RDW 14.3 H (11.5-14.0) % Plt Count 163 (150-450) K/mm3 MPV 11.3 H (6-9.5) fl Segmented Neutrophils 85 H (36.-66.) % Band Neutrophils 7 H (0.0-2.0) % Lymphocytes (Manual) 3 L (24-44) % Monocytes (Manual) 5 (0.0-12.0) % Differential Comment NORMAL Platelet Estimate NORMAL (NORMAL) Sodium 135 L (136-145) mEq/L Potassium 3.8 (3.5-5.1) mEq/L Chloride 100 (98-107) mEq/L Carbon Dioxide 26.0 (21-32) mEq/L Anion Gap 12.8 (5-15) MEQ/L BUN 19 (9-20) mg/dL Creatinine 0.71 (0.55-1.30) mg/dl Estimated GFR > 60 ML/MIN Glucose 95 (70-110) MG/DL Calcium 8.0 L (8.5-10.1) mg/dL Total Bilirubin 1.30 H 1.40 H (0.2-1.0) mg/dL Direct Bilirubin 0.29 H (0.0-0.2) MG/DL AST 38 H 40 H (15-37) U/L ALT 45 46 (12-78) U/L Alkaline Phosphatase 98 99 (46-116) U/L Serum Total Protein 6.3 L 5.8 L (6.4-8.2) gm/dL Albumin 2.7 L 2.7 L (3.4-5.0) g/dL Radiology Exams: Radiology Procedures Category Date Time Status ABDOMEN 2 VIEW Routine Exams 01/16/17 Completed ABDOMEN AND PELVIS W CONTRAST [CT] Routine Exams 01/17/17 12:45 Ordered Multi-Disciplinary Progress Notes: Multi-Disciplinary Progress Notes 01/16/17 15:53 Case Management Note by Cecile Fong DISCHARGE PLAN REVIEWED. PT NORMALLY LIVES AT HOME WITH HIS AND LAY CAREGIVER ONUR DE JESUS, PHONE [phone]. SHE DID TALK WITH DR. Edison BONILLA AFTER SURGERY AND IS AWARE OF THE SEVERITY OF THE SURGERY. NORMALLY KIA IS INDEPENDENT OF ALL ADL'S, AND MAKES ALL OF HIS OWN DECISIONS. PLAN TO GO HOME TO PRE EPISODIC LEVEL OF FUNCTION. WILL CONTINUE TO PLAN FOR ALL D/C NEEDS. WILL TALK WITH LAY CAREGIVER ON WEDNESDAY PT WILL BE INHOUSE SEVERAL DAYS FOR RECOUP AFTER SURGERY AND IV ATB. PRIMARY NURSE HAS ADVISED PT AND CAREGIVER TO CALL FOR ANY NEEDS. Initialized on 01/16/17 15:53 - END OF NOTE Assessment/Plan (1) History of cholecystectomy Current Visit: Yes Status: Acute Assessment & Plan: POD #2. His HR and BP are higher; Dr. Anuj Bonilla saw the pt and ordered a CT abd/ pelvis and restarted the flagyl (pt on levaquin). It appears he may be having a reaction to the flagyl so with Dr. Bonilla's approval will change flagyl/ levaquin to Invanz. Code(s): Z90.49 - ACQUIRED ABSENCE OF OTHER SPECIFIED PARTS OF DIGESTIVE TRACT (2) Hyponatremia Current Visit: Yes Status: Acute Assessment & Plan: Nearly resolved; Na 135 today, up from 132 yesterday and 121 on admission. Code(s): E87.1 - HYPO-OSMOLALITY AND HYPONATREMIA (3) Dyspnea Current Visit: Yes Status: Acute Assessment & Plan: EKG without acute changes. Stat troponin and BNP are pending. Code(s): R06.00 - DYSPNEA, UNSPECIFIED (4) Tachycardia Current Visit: Yes Status: Acute Code(s): R00.0 - TACHYCARDIA, UNSPECIFIED (5) Hypertension Current Visit: Yes Status: Acute Assessment & Plan: He has been unable to take his bp med; initially his BP was controlled but now in the 160s (until last reading into the 200s). has labetalol prn BP > 180 but as soon as possible he needs his lisinopril and norvasc restarted. Code(s): I10 - ESSENTIAL (PRIMARY) HYPERTENSION
[2017-01-17 15:26] LABS: TROPONIN < 0.017 ng/ml (0.000-0.056)
[2017-01-17] MEDS ORDERED: Lasix 40 MG/4 ML IV ONE (15:31)
[2017-01-17] MEDS: Invanz 1 GM*** 1 G in Sodium Chloride 100ML MINI-BAG PLUS 100 ML IV SCH (17:56)
[2017-01-17] MEDS ORDERED: Sodium Chloride 0.9% 1000 ML 1,000 ML IV SCH (18:00)
--- NOTE | 2017-01-17 21:07 | XRAY ---
Indication: Pain. Status post cholecystectomy 4 days ago. Multiple contiguous axial images obtained through the abdomen and pelvis using 80 cc Isovue 370 contrast. Enteric contrast also given. Comparison: Noncontrast exam January 12, 2017. Lung bases now demonstrates bibasilar subsegmental and dependent atelectasis with tiny right effusion. Heart is not enlarged. Stable small hiatal hernia. There has been interval cholecystectomy. Tiny fluid in the gallbladder fossa with surgical drainage tubing exiting anteriorly. Also small anterior perihepatic fluid collection overall measuring 2.0 x 10.2 x 6.2 cm with tiny air bubbles possibly infected fluid collection. Small subdiaphragmatic free air. Contrasted bowel loops appear nonobstructed. Scattered sigmoid diverticulosis. Remaining liver, pancreas, spleen, adrenal glands, kidneys, ureters, and bladder appear unremarkable. Mild aortoiliac calcifications. No AAA or pathologic retroperitoneal lymphadenopathy. Osseous structures intact with moderate degenerative changes throughout the spine and dextro rotoscoliosis. Right anterior abdominal wall demonstrates subcutaneous emphysema. Impression: 1. Status post cholecystectomy with drainage tubing in situ. Small free fluid with tiny air bubbles as detailed possibly infected. 2. Small pneumoperitoneum and right anterior abdominal wall subcutaneous emphysema presumed postsurgical. 3. Bibasilar atelectasis and tiny right effusion. 4. Stable small hiatal hernia and sigmoid diverticulosis. Comment: Preliminary interpretation was made by [facility]. No discrepancy. CTDI 22.94
[2017-01-18 06:41] LABS: Mean Cell Volume 86.1 fl (78-100); Mean Corpuscular Hemoglobin 30.3 pg (26-32); Mean Platelet Volume 10.8 fl (6-9.5); Platelet Count 181 K/mm3 (150-450); Red Blood Count 3.96 M/mm3 (4.1-5.6); Red Cell Distribution Width 14.2 % (11.5-14.0); White Blood Count 10.3 K/mm3 (4.0-10.5)
[2017-01-18 06:52] LABS: ALBUMIN 2.4 g/dL (3.4-5.0); ALKALINE PHOSPHATASE 98 U/L (46-116); BLOOD UREA NITROGEN 15 mg/dL (9-20); CHLORIDE 102 mEq/L (98-107); Carbon Dioxide 29.2 mEq/L (21-32); Glucose 106 MG/DL (70-110); Potassium 3.5 mEq/L (3.5-5.1); SGOT/AST 31 U/L (15-37); SGPT/ALT 37 U/L (12-78); SODIUM 138 mEq/L (136-145); Total Protein 5.7 gm/dL (6.4-8.2)
[2017-01-18] MEDS: NORCO 5/325 MG PO PRN (06:54)
[2017-01-18 06:59] LABS: Direct Bilirubin 0.34 MG/DL (0.0-0.2)
[2017-01-18 08:24] LABS: BAND 5 % (0.0-2.0); Platelet Estimate NORMAL (NORMAL); Total Cells Counted 100
[2017-01-18] MEDS: NORVASC 5 MG PO SCH (09:34)
[2017-01-18] MEDS: Zestril 20 MG PO SCH (09:34)
[2017-01-18] MEDS: PROTONIX 40 MG IV IV SCH (09:34)
[2017-01-18] MEDS: ENOXAPARIN SODIUM SQ SCH (09:34)
[2017-01-18] MEDS: Levofloxacin 500MG/100ML D5W 500 MG/100 ML BAG IV SCH (10:14)
[2017-01-18] MEDS ORDERED: Robitussin 100 MG/5 ML PO PRN (15:39)
[2017-01-18] MEDS ORDERED: PHARMACY DOSING REQUEST MC ONE (15:44)
[2017-01-18] MEDS: Invanz 1 GM*** 1 G in Sodium Chloride 100ML MINI-BAG PLUS 100 ML IV SCH (15:51)
[2017-01-18] MEDS: Mucinex 600MG ER Tabs PO SCH (17:14)
[2017-01-19 05:38] LABS: Mean Cell Volume 85.6 fl (78-100); Mean Platelet Volume 10.5 fl (6-9.5); Platelet Count 235 K/mm3 (150-450); Red Blood Count 4.03 M/mm3 (4.1-5.6); Red Cell Distribution Width 14.4 % (11.5-14.0); White Blood Count 14.7 K/mm3 (4.0-10.5)
[2017-01-19 05:39] LABS: Mean Corpuscular Hemoglobin 29.7 pg (26-32)
[2017-01-19 05:55] LABS: ALBUMIN 2.4 g/dL (3.4-5.0); ALKALINE PHOSPHATASE 101 U/L (46-116); ANION GAP 8.8 MEQ/L (5-15); BLOOD UREA NITROGEN 14 mg/dL (9-20); CHLORIDE 101 mEq/L (98-107); Carbon Dioxide 29.6 mEq/L (21-32); Glucose 113 MG/DL (70-110); Potassium 3.2 mEq/L (3.5-5.1); SGOT/AST 27 U/L (15-37); SGPT/ALT 39 U/L (12-78); SODIUM 136 mEq/L (136-145); Total Protein 5.5 gm/dL (6.4-8.2)
[2017-01-19 08:21] LABS: BAND 4 % (0.0-2.0); Eosinophil 1 % (0.00-3.0); Total Cells Counted 100
[2017-01-19 08:22] LABS: Platelet Estimate NORMAL (NORMAL)
[2017-01-19] MEDS: NORCO 5/325 MG PO PRN ×3 (08:49→17:42)
--- NOTE | 2017-01-19 09:04 | XRAY ---
Indication: Fever. Comparison: January 12, 2017. PA/lateral chest now underinflated with new bibasilar atelectasis and tiny effusions. Heart is not enlarged. Vascularity normal.
[2017-01-19] MEDS: Zestril 20 MG PO SCH (09:11)
[2017-01-19] MEDS: NORVASC 5 MG PO SCH (09:11)
[2017-01-19] MEDS: Mucinex 600MG ER Tabs PO SCH ×2 (09:11→22:00)
[2017-01-19] MEDS: PROTONIX 40 MG IV IV SCH (09:11)
[2017-01-19] MEDS: ENOXAPARIN SODIUM SQ SCH (09:14)
[2017-01-19] MEDS: Levofloxacin 500MG/100ML D5W 500 MG/100 ML BAG IV SCH (09:14)
[2017-01-19] MEDS: Invanz 1 GM*** 1 G in Sodium Chloride 100ML MINI-BAG PLUS 100 ML IV SCH (15:29)
[2017-01-19 17:54] LABS: ADD URINE CULTURE? NO (NO); Bilirubin NEGATIVE (NEGATIVE); Blood NEGATIVE Ery/ul (0-5); COMPLETE URINE MICROSCOPIC? NO; Collection Type CLEAN CATCH; Glucose NEGATIVE (NEGATIVE); Leukocyte Esterase NEGATIVE (NEGATIVE)
[2017-01-20] MEDS: NORCO 5/325 MG PO PRN ×3 (02:00→14:05)
[2017-01-20] MEDS: Sodium Chloride 0.9% 10 ML FLUSH Syringe IV SCH ×2 (05:34→14:06)
[2017-01-20 05:52] LABS: Mean Cell Volume 85.9 fl (78-100); Mean Corpuscular Hemoglobin 29.5 pg (26-32); Mean Platelet Volume 10.4 fl (6-9.5); Platelet Count 309 K/mm3 (150-450); Red Cell Distribution Width 14.4 % (11.5-14.0); White Blood Count 17.5 K/mm3 (4.0-10.5)
[2017-01-20 06:10] LABS: ALBUMIN 2.6 g/dL (3.4-5.0); ALKALINE PHOSPHATASE 113 U/L (46-116); BLOOD UREA NITROGEN 11 mg/dL (9-20); CHLORIDE 96 mEq/L (98-107); Carbon Dioxide 30.8 mEq/L (21-32); Glucose 114 MG/DL (70-110); Potassium 3.5 mEq/L (3.5-5.1); SGOT/AST 31 U/L (15-37); SGPT/ALT 28 U/L (12-78); SODIUM 132 mEq/L (136-145); Total Protein 5.8 gm/dL (6.4-8.2)
[2017-01-20] MEDS ORDERED: PHARMACY DOSING REQUEST MC ONE (07:54)
[2017-01-20 07:59] LABS: BAND 2 % (0.0-2.0); Metamyelocyte 1 %; Platelet Estimate NORMAL (NORMAL); Total Cells Counted 100
[2017-01-20] MEDS: Mucinex 600MG ER Tabs PO SCH (09:54)
[2017-01-20] MEDS: NORVASC 5 MG PO SCH (09:55)
[2017-01-20] MEDS: ENOXAPARIN SODIUM SQ SCH (09:55)
[2017-01-20] MEDS: Zestril 20 MG PO SCH (09:55)
[2017-01-20] MEDS: PROTONIX 40 MG IV IV SCH (09:55)
[2017-01-20] MEDS ORDERED: Maxipime 2 GM** 2 G in Dextrose 5%/Water IV Soln. 100ML PLUS BAG 100 ML IV SCH (10:00)
[2017-01-20] MEDS: Levofloxacin 500MG/100ML D5W 500 MG/100 ML BAG IV SCH (10:59)
--- NOTE | 2017-01-20 13:30 | XRAY ---
Indication: Follow-up abscess. Leukocytosis. Status post cholecystectomy. Multiple contiguous axial images obtained through the abdomen and pelvis prior to and following 80 cc Isovue 370 contrast. Enteric contrast also given. Comparison: January 17, 2017. Lung bases again demonstrates bibasilar subsegmental and dependent atelectasis with tiny right effusion. Heart is not enlarged. There is now enteric contrast in the distal esophagus presumed from gastroesophageal reflux. Noncontrasted images through the abdomen negative for pathologic visceral calcifications/calculi. There remains stable mild aortoiliac calcifications. There again note of cholecystectomy with minimally increasing fluid in the gallbladder fossa with stable surgical drainage tubing. The anterior perihepatic fluid collection with air bubble has minimally increased in AP dimension today 2.2 cm, previously 2 cm. There is now tiny free fluid in the right colic gutter and pelvis. Previous subdiaphragmatic free air and right anterior abdominal wall subcutaneous emphysema both appear smaller. Contrasted bowel loops again appear nonobstructed. Hepatic flexure of the colon now demonstrates mild reactive bowel wall thickening. Stable sigmoid diverticulosis without diverticulitis. Remaining liver, pancreas, spleen, adrenal glands, kidneys, ureters, and bladder appear unremarkable. Stable small. It nodes. No AAA or pathologic retroperitoneal lymphadenopathy. Osseous structures intact with moderate degenerative changes throughout the spine and dextro rotoscoliosis. Impression: 1. Again status post cholecystectomy with drainage tubing in situ. Minimally increasing free fluid as detailed again possibly infected given clinical history of leukocytosis. 2. Interval diminished postsurgical pneumoperitoneum and right anterior abdominal wall subcutaneous emphysema. 3. Enteric contrast in the distal esophagus presumed from gastroesophageal reflux. 4. Stable sigmoid diverticulosis. 5. Stable bibasilar atelectasis and tiny right effusion. CTDI 23.68
[2017-01-20] MEDS: Invanz 1 GM*** 1 G in Sodium Chloride 100ML MINI-BAG PLUS 100 ML IV SCH (14:05)
[2017-01-20 14:25] VITALS: BP 153/70; PULSE 88; O2SAT 95
--- NOTE | 2017-01-20 15:40 | CONS ---
HISTORY: This is a gentleman who has been having abdominal pain increasing over the past couple of days. He did present for evaluation. He has had a CT scan and ultrasound which he has gallstones but he did have any acute issues. He was able to be discharged home from his previous evaluation. However, he had worsening pain and so he represented to the emergency room and was admitted. Due to his worsened pain and fever, we did recheck his laboratory studies as well as his ultrasound. He initially had a mildly elevated bilirubin. However on repeat laboratory studies his bilirubin had normalized. He does continue to have significant pain in his right upper quadrant consistent with his new ultrasound findings which show acute cholecystitis with fluid, stones and sludge. PAST MEDICAL HISTORY: Hypertension. PAST SURGICAL HISTORY: None. HOME MEDICATIONS: Norvasc, lisinopril. ALLERGIES: PENICILLIN. SOCIAL HISTORY: History of tobacco use. FAMILY HISTORY: Negative. PHYSICAL EXAMINATION: GENERAL: No acute distress. CVS: Mildly tachycardic, regular rhythm. ABDOMEN: Soft, tender to palpation right upper quadrant. No rebound, no guarding. EXTREMITIES: Normal. LAB DATA AND TESTS: Show an elevated white blood cell count. Bilirubin has normalized. Ultrasound and CT scans have been reviewed. ASSESSMENT: Clinically the patient has acute cholecystitis. I have discussed with him all the risks, benefits, alternatives regarding laparoscopic possible open cholecystectomy. He understands. He agrees. He would like proceed. He has been rehydrated. His tachycardia has improved. He is on antibiotic. PLAN: Plan for surgery and to continue antibiotic treatment postoperatively as well. The patient understands and we will be going to surgery today.
--- NOTE | 2017-01-20 16:01 | OP ---
PROCEDURE DATE/TIME: 01/15/2017 1331 PREOPERATIVE DIAGNOSIS: Acute cholecystitis with cholelithiasis. POSTOPERATIVE DIAGNOSIS: Acute gangrenous cholecystitis with free pus intra-abdominally. PROCEDURE: Laparoscopic cholecystectomy and wash out for intra-abdominal abscess. PROCEDURE PERFORMED BY: Thu Bonilla M.D. COMPLICATIONS: None. ESTIMATED BLOOD LOSS: Less than 50 cc. ANESTHESIA: General. SPECIMEN: Gallbladder and free peritoneal fluid. DRAINS: YOLY drain left in hepatic fossa. HISTORY: This is a 72 year-old gentleman who presented with acute cholecystitis. All risks, benefits, alternatives regarding surgery had been discussed with the patient and his family at the bedside. They understand and would like to proceed. DESCRIPTION OF PROCEDURE: The patient was taken back to the operative suite. He was prepped and draped in the usual sterile fashion. A complete time out was performed. An orogastric tube inserted. Stomach desufflated. The stomach contents appeared to be normal in color. After a time out we then made an incision in the left upper quadrant. Veress needle was used to access the abdomen with a good water drop test. Abdomen was evenly and easily insufflated. A 5 mm optical port placed at the same site under direct visualization. An 11 port placed in the inferior umbilical region and then two - 5 ports in the right upper quadrant all under visualization. We immediately saw pus extending from the hepatic flexure and near the gallbladder all the way down to the pelvis and along the entire right gutter. This pus was completed evacuated and cleared out. He also had fibrinous tissue throughout much of his lower bowel likely from the inflammatory reaction from this pus extending down. We were able to see the more proximal anterior portion of the stomach and this appeared to be very healthy and decompressed. The omentum was completely bunched up and stuck on the gallbladder completing covering it from our view. We had to carefully take this omentum off the gallbladder and once we did this we saw an absolutely necrotic gallbladder which was obviously inflamed, distended and needed to come out. We then carefully proceeded with our dissection. We retracted the gallbladder. We dissected free the cystic duct and cystic artery. We were able to obtain a critical view after a meticulous dissection. There was quite a severe inflammatory reaction throughout this entire region of the gallbladder. We cleared the liver plate and insured that there were only two structures entering the gallbladder the cystic duct and cystic artery. Due to the amount of inflammation we were able to find a healthy portion of the cystic duct and I did elect to use a stapler to transect this and so I upsized my left upper quadrant 5 port to a 12 port. We used the vascular load stapler on the cystic duct. Our staple line was excellent and hemostatic. We clipped the artery and ligated this and the gallbladder was carefully taken off the liver bed with Bovie cautery. It was absolutely necrotic. It appeared to have been necrosing into the liver as well. We completely removed all the gallbladder tissue, placed this in a bag and extracted this and this was then sent to pathology. We then replaced our trocar and re-inspected our surgical site as well as the rest of the abdomen. I did not see any other issues. There was no bile anywhere. All the pus was suctioned free. Due to the severe inflammation I did place a YOLY drain through the lateral right most 5 port and guided this into the region of the hepatic fossa. We further irrigated. We closed our 11 port and our 12 port both with 0 Vicryl laparoscopic suture. We then desufflated the abdomen, irrigated the wounds and closed with buried 4-0 Monocryl, Steri-Strips and sterile dressing. The drain was sutured in place as well with a drain sponge placed. The patient tolerated the procedure very well. There were no immediate complication. He is going to return to PACU and then to the floor for further recovery. He will need to be on antibiotics. We will await the culture results and at this time will keep him NPO and follow him closely due to the severe inflammation.
--- NOTE | 2017-01-22 10:24 | DS ---
Date of transfer to another facility was 01/20/2017. DISCHARGE DIAGNOSES: 1) GANGRENOUS GALLBLADDER. 2) CHOLECYSTITIS. SURGICAL CONSULTATION: Dr. Bonilla. HOSPITAL COURSE: The patient is a 72 year-old white male patient who presented to the emergency room with right upper quadrant abdominal pain. He was found to have cholecystitis. He was admitted to the hospital for IV antibiotics. Surgical consultation was obtained. The patient had laparoscopic cholecystectomy. The patient initially did well with recovery although was somewhat slow due to the severe nature of the cholecystitis. The patient was on IV antibiotics. On approximately 01/18/2017, the patient was noted to have low grade fever and increasing white blood cell count. We changed his antibiotic therapy. Further evaluation revealed no specific source of infection otherwise. The surgeons felt that the patient needed to be transferred to another facility for CT guided drainage of what was felt to likely be a forming abscess. We do not have an interventional radiologist and it was felt that the patient would need more advanced care and therefore he was transferred for that care.
== END 2017-01-20 17:00 | disposition home or self-care (01) | DRG 418 ==
LOC: ED 04:35 → MED SURG 06:57 → OBSVTOIN 10:25
PROVIDERS: ADMIT Family Medicine; ATTEND Family Medicine
PROC: 0FT44ZZ Resection of Gallbladder, Percutaneous Endoscopic Approach (ICD-10-PCS; principal; 2017-01-15)
DX: K80.00 Calculus of gallbladder with acute cholecystitis without obstruction (principal); E87.1 Hypo-osmolality and hyponatremia; Z90.49 Acquired absence of other specified parts of digestive tract; R00.0 Tachycardia, unspecified; I10 Essential (primary) hypertension
CPT/HCPCS: 00790; 36000; 36415; 71020; 74020; 74177; 74178; 76705; 80053; 80076; 81000; 81002; 82150; 82248; 83605; 83690; 83735; 83880; 84484; 85025; 87040; 87070; 87077; 87086; 87186; 87205; 87493; 88304; 93005; 94760; 96360; 96361; 96365; 96374; 96375; 99100; 99285; G0008; J0330; J0692; J0696; J1100; J1170; J1200; J1335; J1650; J1885; J1940; J1956; J2405; J2550; J2704; J3010; J3475; 90662; A9270-GY

== ENCOUNTER 2020-11-01 05:46 | Day surgery (SDC) | payer MEDICARE, OTHER ==
[2020-11-01] MEDS ORDERED: Lactated Ringers 1,000 ML IV SCH (06:30)
[2020-11-01] MEDS ORDERED: DIPRIVAN 200 MG/20 ML IV ONE (06:55)
[2020-11-01] MEDS ORDERED: Xylocaine-Mpf 2% 5 Ml Vial ONE (07:11)
[2020-11-01 08:17] VITALS: O2SAT 97
[2020-11-01 08:33] VITALS: BP 135/86; PULSE 88
--- NOTE | 2020-11-01 08:58 | OP ---
SURGERY DATE/TIME: 11/01/2020 0724 PREOPERATIVE DIAGNOSIS: Dysphagia, reflux and heartburn. POSTOPERATIVE DIAGNOSIS: Hiatal hernia and mild gastritis. PROCEDURE: Esophagogastroduodenoscopy with cold forceps biopsy. SURGEON: Dr. Jansen. ANESTHESIA: Medications were given by the anesthesia department. HISTORY: The patient is a 75 year old white male patient presenting now for evaluation. The patient reports that he has been having problems over the past year but he was reluctant initially to have a procedure performed. He reports that occasionally food seems to stick in the lower part of his chest. He is also having a lot of reflux and heartburn. The patient is felt the need to have endoscopic evaluation. He was appraised of the risks of the procedure including the risk of perforation, phlebitis, untoward reaction to medication, bleeding and missed lesions. The patient verbalized his understanding and desired to have the procedure performed. DESCRIPTION OF PROCEDURE: The patient was given the medications by the anesthesia department. He had continuous pulse oximetry, ECG monitoring, intermittent blood pressure monitoring and tidal CO2 monitoring during the examination. He was placed in the left lateral decubitus position. A bite block was placed. A flexible Olympus gastroscope was used to intubate the oropharynx. A view of the larynx was obtained and was normal. The scope was easily introduced in the esophagus which appeared normal to the distal portion where we encountered a hiatal hernia. The stomach was entered where normal gastric rugal folds were seen and these distended nicely with insufflation of air. The scope was passed along the greater curvature of the stomach to the antrum. The pylorus is widely [id number]. The duodenum is inspected and found to be normal. The scope is withdrawn towards the stomach. A retroflex view was obtained and confirmed the hiatal hernia otherwise. It appeared to be essentially normal. Gastric antrum was biopsied using cold biopsy technique to rule out the presence of Helicobacter pylori-type organisms. The scope was then removed from the patient who tolerated the procedure well and sent back to the hospital [facility] in good condition.
== END 2020-11-01 08:35 | disposition home or self-care (01) ==
LOC: SDC 05:46
PROVIDERS: ATTEND Family Medicine
DX: K44.9 Diaphragmatic hernia without obstruction or gangrene (principal); R13.10 Dysphagia, unspecified; R12 Heartburn; K21.9 Gastro-esophageal reflux disease without esophagitis; K29.70 Gastritis, unspecified, without bleeding; Z79.899 Other long term (current) drug therapy
CPT/HCPCS: J2704

== ENCOUNTER 2021-12-08 19:35 | Inpatient (IN) | payer MEDICARE, OTHER ==
[2021-12-08] MEDS ORDERED: Sodium Chloride 0.9% 1000 ML 1,000 ML IV STA (19:56)
[2021-12-08] MEDS ORDERED: Sodium Chloride 0.9% 1000 ML 1,000 ML ONE (20:15)
[2021-12-08 20:46] LABS: Absolute Neutrophil Ct (ANC) 12.08 x10^3/uL (1.4-6.9); Basophil (Absolute #) 0.01 x10^3/uL (0-0.4); Eosinophil % 1.3 % (0.00-5.0); Eosinophil (Absolute #) 0.19 x10^3/uL (0-0.5); Hematocrit 34.1 % (42-50); Lymphocyte (Absolute #) 0.82 x10^3/uL (1.0-4.6); Lymphocytes % 5.6 % (24.0-44.0); Mean Cell Volume 77.7 fL (78-100); Mean Corpuscular Hemoglobin 25.1 pg (26-32); Mean Corpuscular Hgb Concent. 32.3 g/dL (32-36); Mean Platelet Volume 9.9 fL (7.5-11.0); Monocyte (Absolute #) 1.34 x10^3/uL (0.0-1.3); Monocytes % 9.2 % (0.0-12.0); Platelet Count 445 x10^3/uL (150-450); Red Blood Count 4.39 x10^6/uL (4.1-5.6); Red Cell Distribution Width 16.3 % (11.5-14.0); White Blood Count 14.6 x10^3/uL (4.0-10.5)
[2021-12-08 20:56] LABS: ALBUMIN 2.9 g/dL (3.5-5.0); ALKALINE PHOSPHATASE 212 U/L (38-126); ANION GAP 13.4 MEQ/L (5-15); BLOOD UREA NITROGEN 19 mg/dL (9-20); CHLORIDE 87 mmol/L (98-107); Calcium 8.5 mg/dL (8.4-10.2); Carbon Dioxide 27 mmol/L (22-30); Creatinine 1 0.71 mg/dL (0.66-1.25); EST GLOMERULAR FILTRATION RATE > 60.0 ML/MIN; Glucose 147 mg/dL (74-106); Potassium 5.1 mmol/L (3.5-5.1); SGOT/AST 68 U/L (17-59); SGPT/ALT 53 U/L (0-50); SODIUM 122 mmol/L (137-145); Total Protein 6.1 g/dL (6.3-8.2)
[2021-12-08 21:02] LABS: Appearance CLEAR (CLEAR); Bilirubin NEGATIVE (NEGATIVE); Glucose NEGATIVE (NEGATIVE); Ketones NEGATIVE (NEGATIVE); Nitrite NEGATIVE (NEGATIVE); Ph 6.5 (5-6); Protein,Urine Dip NEGATIVE (Negative); RBC SMALL Ery/ul (0-5); Urine Cultured Indicated? NO; Urobilinogen 0.2 mg/dL (0-1)
[2021-12-08 21:09] LABS: Dipstick done @ ? MAIN LAB
[2021-12-08 21:23] LABS: INFLUENZA A NEGATIVE (NEGATIVE); INFLUENZA B NEGATIVE (NEGATIVE); RESPIRATORY SYNCTIAL VIRUS NEGATIVE (Negative); SARS-CoV-2 Xpert Express NEGATIVE (NEGATIVE)
--- NOTE | 2021-12-08 22:39 | ERPHSYRPT ---
- History of Present Illness Time Seen by Provider: 12/08/21 19:50 Source: patient Exam Limitations: no limitations Patient Subjective Stated Complaint: I've been weak, achy, fever, cough, sob at times.....all of this off and on x2 weeks. Triage Nursing Assessment: pt ambulated into ER. pt c/o feeling bad x2 weeks off and on. Pt has body aches, weak, fever, cough and sob at times. Lungs clear, heart tones reg. Abd soft with active bs x4 quad, nontender. Physician History: Patient is a 76-year-old male who has had fever on and off for 2 weeks he has aching he has been extremely weak he has had chills he has a nonproductive cough and has been short of air. He reports his temperature at home has been as high as 101.9. Timing/Duration: week(s) (2) Fever Severity: moderate Fever Therapy STRUCTURED CABLING TECHNICIAN: none Associated Symptoms: cough, diaphoresis, shortness of breath, weakness Allergies/Adverse Reactions: metronidazole Allergy (Intermediate, Verified 12/08/21 19:55) Difficulty Breathing ALSO HALLUCINATIONS Penicillins Allergy (Verified 12/08/21 19:55) Swelling of Tongue and Lips Home Medications: Amlodipine Besylate 5 mg [Norvasc 5 mg] 5 mg PO DAILY 01/12/17 [History] Lisinopril 20 mg [Zestril 20 MG] 20 mg PO DAILY 01/16/17 [History] Hx Tetanus, Diphtheria Vaccination/Date Given: Yes Hx Influenza Vaccination/Date Given: No Hx Pneumococcal Vaccination/Date Given: Yes Immunizations Up to Date: Yes Travel Risk - International Travel Have you traveled outside of the country in past 3 weeks: No - Coronavirus Screening Are you exhibiting any of the following symptoms?: Yes Symptoms: Fever, Cough: New Onset, Shortness of Breath, Headaches/Body Aches/Fatigue Close contact with a COVID-19 positive Pt in past 14-21 Days: No - Vaccine Status Have you recieved a Covid-19 vaccination: Yes Sand Technologist: Moderna - Vaccination Dates Date of 2cond Vaccination (if applicable): . - Review of Systems Constitutional: Fever, Chills, Night Sweats Eyes: No Symptoms Ears, Nose, & Throat: No Symptoms Respiratory: Cough, Dyspnea Cardiac: No Chest Pain, No Edema, No Syncope Abdominal/Gastrointestinal: No Abdominal Pain, No Nausea, No Vomiting, No Diarrhea Genitourinary Symptoms: No Dysuria Musculoskeletal: No Back Pain, No Neck Pain Skin: No Rash Neurological: No Dizziness, No Focal Weakness, No Sensory Changes Psychological: No Symptoms All Other Systems: Reviewed and Negative - Past Medical History Pertinent Past Medical History: Yes Neurological History: No Pertinent History ENT History: No Pertinent History Cardiac History: Angina, Coronary Artery Disease, Hypertension Respiratory History: No Pertinent History Endocrine Medical History: Hypothyroidism Musculoskeletal History: No Pertinent History GI Medical History: GERD, Gallbladder Disease History: No Pertinent History Psycho-Social History: No Pertinent History Male Reproductive Disorders: No Pertinent History - Past Surgical History Past Surgical History: Yes Neuro Surgical History: No Pertinent History Cardiac: CABG Respiratory: No Pertinent History Gastrointestinal: Cholecystectomy Genitourinary: No Pertinent History Musculoskeletal: No Pertinent History Male Surgical History: No Pertinent History - Social History Smoking Status: Former smoker Exposure to second hand smoke: No Drug Use: none Patient Lives Alone: No - Nursing Vital Signs Nursing Vital Signs: Initial Vital Signs Temperature 99.4 F 12/08/21 19:42 Pulse Rate 120 H 12/08/21 19:42 Respiratory Rate 20 12/08/21 19:42 Blood Pressure 180/98 12/08/21 19:42 O2 Sat by Pulse Oximetry 99 12/08/21 19:42 Pain Scale Pain Intensity 9 - Physical Exam General Appearance: mild distress, alert Eye Exam: PERRL/EOMI ENT Exam: normal ENT inspection, No pharyngeal erythema, No tonsillar exudate Neck Exam: supple, full range of motion, No meningismus Respiratory Exam: normal breath sounds, lungs clear, no respiratory distress Cardiovascular/Chest Exam: normal heart sounds, regular rate/rhythm, No murmur, No edema Gastrointestinal/Abdominal Exam: soft, non tender, no distention Extremity Exam: non-tender, normal range of motion, normal inspection, normal capillary refill Neurologic Exam: alert, oriented x 3, cooperative, belt cleaner II-XII nml as tested, normal mood/affect, sensation nml, No motor deficits Skin Exam: normal color, warm, dry, No rash SpO2: 99 - Course Nursing assessment & vital signs reviewed: Yes EKG Interpreted by Me: RATE ([id number]), Sinus Tach, NORMAL AXIS, NORMAL INTERVALS, NORMAL QRS, Non-specific ST Changes - Radiology Exams Chest X-ray Interpretation: Interpreted by me, Negative Ordered Tests: Active Orders 24 hr Category Date Time Status EKG-ER Only STAT Care 12/08/21 19:56 Active IV Insertion STAT Care 12/08/21 19:56 Active CHEST 1 VIEW (PORTABLE) Stat Exams 12/08/21 19:56 Taken BLOOD CULTURE Stat Lab 12/08/21 20:42 Received CBC W DIFF Stat Lab 12/08/21 20:42 Completed CMP Stat Lab 12/08/21 20:42 Completed Lactic Acid Stat Lab 12/08/21 20:24 Completed [place] Screen Stat Lab 12/08/21 20:42 Completed TROPONIN Q4H Lab 12/08/21 20:42 Completed UA W/RFX CULTURE Stat Lab 12/08/21 20:36 Completed Medication Summary Discontinued Medications Generic Name Dose Route Start Last Admin Trade Name Robertq PRN Reason Stop Dose Admin Sodium Chloride 1,000 mls @ 999 mls/hr 12/08/21 19:56 12/08/21 20:17 Sodium Chloride 0.9% 1000 Ml IV 12/08/21 20:56 999 mls/hr .Q1H1M STA Administration Sodium Chloride Confirm 12/08/21 20:15 Sodium Chloride 0.9% 1000 Ml Administered 12/08/21 20:16 Dose 1,000 mls @ ud .ROUTE .STK-MED ONE Lab/Rad Data: Laboratory Result Diagrams 12/08/21 20:42 12/08/21 20:42 Laboratory Results 12/08/21 12/08/21 12/08/21 Range/Units 20:42 20:42 20:42 WBC (4.0-10.5) x10^3/uL RBC (4.1-5.6) x10^6/uL Hgb (12.5-18.0) g/dL Hct (42-50) % MCV (78-100) fL MCH (26-32) pg MCHC (32-36) g/dL RDW (11.5-14.0) % Plt Count (150-450) x10^3/uL MPV (7.5-11.0) fL Gran % (36.0-66.0) % Immature Gran % (Auto) (0.00-0.4) % Nucleat RBC Rel Count (0.00-0.1) % Eos # (Auto) (0-0.5) x10^3/uL Immature Gran # (Auto) (0.00-0.03) x10^3u/L Absolute Lymphs (auto) (1.0-4.6) x10^3/uL Absolute Monos (auto) (0.0-1.3) x10^3/uL Absolute Nucleated RBC (0.00-0.01) x10^3u/L Lymphocytes % (24.0-44.0) % Monocytes % (0.0-12.0) % Eosinophils % (0.00-5.0) % Basophils % (0.0-0.4) % Absolute Granulocytes (1.4-6.9) x10^3/uL Basophils # (0-0.4) x10^3/uL Sodium (137-145) mmol/L Potassium (3.5-5.1) mmol/L Chloride (98-107) mmol/L Carbon Dioxide (22-30) mmol/L Anion Gap (5-15) MEQ/L BUN (9-20) mg/dL Creatinine (0.66-1.25) mg/dL Estimated GFR ML/MIN Glucose (74-106) mg/dL Lactic Acid (0.4-2.0) Calcium (8.4-10.2) mg/dL Total Bilirubin (0.2-1.3) mg/dL AST (17-59) U/L ALT (0-50) U/L Alkaline Phosphatase (38-126) U/L Troponin I < 0.012 (0.000-0.034) ng/mL Serum Total Protein (6.3-8.2) g/dL Albumin (3.5-5.0) g/dL Urinalys Dipstick Clnc Urine Color (YELLOW) Urine Appearance (CLEAR) Urine pH (5-6) Ur Specific [place] (1.005-1.025) POC Urine Protein Conf (Negative) Urine Ketones (NEGATIVE) Urine Nitrite (NEGATIVE) Urine Bilirubin (NEGATIVE) Urine Urobilinogen (0-1) mg/dL Urine Leukocytes (NEGATIVE) Urine WBC (Auto) (0-5) /HPF Urine RBC (Auto) (0-2) /HPF U Epithel Cells (Auto) (FEW) /HPF Urine Bacteria (Auto) (NEGATIVE) /HPF Urine RBC (0-5) Ren/ul Ur Culture Indicated? Urine Glucose (NEGATIVE) mg/dL Monoscreen NEGATIVE (Negative) Influenza Type A Ag NEGATIVE (NEGATIVE) Influenza Type B Ag NEGATIVE (NEGATIVE) RSV (PCR) NEGATIVE (Negative) SARS-CoV-2 (PCR) NEGATIVE (NEGATIVE) 12/08/21 12/08/21 12/08/21 Range/Units 20:42 20:42 20:36 WBC 14.6 H (4.0-10.5) x10^3/uL RBC 4.39 (4.1-5.6) x10^6/uL Hgb 11.0 L (12.5-18.0) g/dL Hct 34.1 L (42-50) % MCV 77.7 L (78-100) fL MCH 25.1 L (26-32) pg MCHC 32.3 (32-36) g/dL RDW 16.3 H (11.5-14.0) % Plt Count 445 (150-450) x10^3/uL MPV 9.9 (7.5-11.0) fL Gran % 83.0 H (36.0-66.0) % Immature Gran % (Auto) 0.8 H (0.00-0.4) % Nucleat RBC Rel Count 0.0 (0.00-0.1) % Eos # (Auto) 0.19 (0-0.5) x10^3/uL Immature Gran # (Auto) 0.11 H (0.00-0.03) x10^3u/L Absolute Lymphs (auto) 0.82 L (1.0-4.6) x10^3/uL Absolute Monos (auto) 1.34 H (0.0-1.3) x10^3/uL Absolute Nucleated RBC 0.00 (0.00-0.01) x10^3u/L Lymphocytes % 5.6 L (24.0-44.0) % Monocytes % 9.2 (0.0-12.0) % Eosinophils % 1.3 (0.00-5.0) % Basophils % 0.1 (0.0-0.4) % Absolute Granulocytes 12.08 H (1.4-6.9) x10^3/uL Basophils # 0.01 (0-0.4) x10^3/uL Sodium 122 L (137-145) mmol/L Potassium 5.1 (3.5-5.1) mmol/L Chloride 87 L (98-107) mmol/L Carbon Dioxide 27 (22-30) mmol/L Anion Gap 13.4 (5-15) MEQ/L BUN 19 (9-20) mg/dL Creatinine 0.71 (0.66-1.25) mg/dL Estimated GFR > 60.0 ML/MIN Glucose 147 H (74-106) mg/dL Lactic Acid (0.4-2.0) Calcium 8.5 (8.4-10.2) mg/dL Total Bilirubin 0.40 (0.2-1.3) mg/dL AST 68 H (17-59) U/L ALT 53 H (0-50) U/L Alkaline Phosphatase 212 H (38-126) U/L Troponin I (0.000-0.034) ng/mL Serum Total Protein 6.1 L (6.3-8.2) g/dL Albumin 2.9 L (3.5-5.0) g/dL Urinalys Dipstick Clnc MAIN LAB Urine Color YELLOW (YELLOW) Urine Appearance CLEAR (CLEAR) Urine pH 6.5 (5-6) Ur Specific [place] 1.020 (1.005-1.025) POC Urine Protein Conf NEGATIVE (Negative) Urine Ketones NEGATIVE (NEGATIVE) Urine Nitrite NEGATIVE (NEGATIVE) Urine Bilirubin NEGATIVE (NEGATIVE) Urine Urobilinogen 0.2 (0-1) mg/dL Urine Leukocytes NEGATIVE (NEGATIVE) Urine WBC (Auto) NONE (0-5) /HPF Urine RBC (Auto) 3-5 (0-2) /HPF U Epithel Cells (Auto) NONE (FEW) /HPF Urine Bacteria (Auto) NONE (NEGATIVE) /HPF Urine RBC SMALL (0-5) Ren/ul Ur Culture Indicated? NO Urine Glucose NEGATIVE (NEGATIVE) mg/dL Monoscreen (Negative) Influenza Type A Ag (NEGATIVE) Influenza Type B Ag (NEGATIVE) RSV (PCR) (Negative) SARS-CoV-2 (PCR) (NEGATIVE) 12/08/21 Range/Units 20:24 WBC (4.0-10.5) x10^3/uL RBC (4.1-5.6) x10^6/uL Hgb (12.5-18.0) g/dL Hct (42-50) % MCV (78-100) fL MCH (26-32) pg MCHC (32-36) g/dL RDW (11.5-14.0) % Plt Count (150-450) x10^3/uL MPV (7.5-11.0) fL Gran % (36.0-66.0) % Immature Gran % (Auto) (0.00-0.4) % Nucleat RBC Rel Count (0.00-0.1) % Eos # (Auto) (0-0.5) x10^3/uL Immature Gran # (Auto) (0.00-0.03) x10^3u/L Absolute Lymphs (auto) (1.0-4.6) x10^3/uL Absolute Monos (auto) (0.0-1.3) x10^3/uL Absolute Nucleated RBC (0.00-0.01) x10^3u/L Lymphocytes % (24.0-44.0) % Monocytes % (0.0-12.0) % Eosinophils % (0.00-5.0) % Basophils % (0.0-0.4) % Absolute Granulocytes (1.4-6.9) x10^3/uL Basophils # (0-0.4) x10^3/uL Sodium (137-145) mmol/L Potassium (3.5-5.1) mmol/L Chloride (98-107) mmol/L Carbon Dioxide (22-30) mmol/L Anion Gap (5-15) MEQ/L BUN (9-20) mg/dL Creatinine (0.66-1.25) mg/dL Estimated GFR ML/MIN Glucose (74-106) mg/dL Lactic Acid 2.1 H (0.4-2.0) Calcium (8.4-10.2) mg/dL Total Bilirubin (0.2-1.3) mg/dL AST (17-59) U/L ALT (0-50) U/L Alkaline Phosphatase (38-126) U/L Troponin I (0.000-0.034) ng/mL Serum Total Protein (6.3-8.2) g/dL Albumin (3.5-5.0) g/dL Urinalys Dipstick Clnc Urine Color (YELLOW) Urine Appearance (CLEAR) Urine pH (5-6) Ur Specific [place] (1.005-1.025) POC Urine Protein Conf (Negative) Urine Ketones (NEGATIVE) Urine Nitrite (NEGATIVE) Urine Bilirubin (NEGATIVE) Urine Urobilinogen (0-1) mg/dL Urine Leukocytes (NEGATIVE) Urine WBC (Auto) (0-5) /HPF Urine RBC (Auto) (0-2) /HPF U Epithel Cells (Auto) (FEW) /HPF Urine Bacteria (Auto) (NEGATIVE) /HPF Urine RBC (0-5) Ren/ul Ur Culture Indicated? Urine Glucose (NEGATIVE) mg/dL Monoscreen (Negative) Influenza Type A Ag (NEGATIVE) Influenza Type B Ag (NEGATIVE) RSV (PCR) (Negative) SARS-CoV-2 (PCR) (NEGATIVE) - Progress Progress: unchanged Discussed with : Reinaldo Will see patient in: hospital (observation) - Departure Departure Disposition: Observation Clinical Impression: Hyponatremia, Fever Condition: Stable Critical Care Time: No Referrals: JEFERSON LANCASTER NP [Primary Care Provider] - Follow up/PCP as directed
[2021-12-08] MEDS ORDERED: Zofran 4 MG/2 ML VIAL IV PRN (22:40)
[2021-12-09 05:33] LABS: Hematocrit 31.6 % (42-50); Hemoglobin 10.6 g/dL (12.5-18.0); Mean Cell Volume 75.6 fL (78-100); Mean Corpuscular Hemoglobin 25.4 pg (26-32); Mean Corpuscular Hgb Concent. 33.5 g/dL (32-36); Mean Platelet Volume 9.8 fL (7.5-11.0); Platelet Count 484 x10^3/uL (150-450); Red Blood Count 4.18 x10^6/uL (4.1-5.6); Red Cell Distribution Width 16.7 % (11.5-14.0); White Blood Count 14.3 x10^3/uL (4.0-10.5)
[2021-12-09 05:41] LABS: ALBUMIN 2.6 g/dL (3.5-5.0); ALKALINE PHOSPHATASE 190 U/L (38-126); BLOOD UREA NITROGEN 14 mg/dL (9-20); CHLORIDE 92 mmol/L (98-107); Carbon Dioxide 28 mmol/L (22-30); Creatinine 1 0.61 mg/dL (0.66-1.25); EST GLOMERULAR FILTRATION RATE > 60.0 ML/MIN; Glucose 105 mg/dL (74-106); Potassium 4.4 mmol/L (3.5-5.1); SGOT/AST 62 U/L (17-59); SGPT/ALT 49 U/L (0-50); SODIUM 123 mmol/L (137-145); Total Protein 5.7 g/dL (6.3-8.2)
[2021-12-09] MEDS: Sodium Chloride 0.9% 1000 ML 1,000 ML IV SCH ×2 (05:58→16:08)
--- NOTE | 2021-12-09 08:31 | PCM.HP ---
History of Present Illness - Chief Complaint Chief Complaint: Fever, Hyponatremia History of Present Illness: is a 76 year old male with hyperlipidemia, hypertension, hypothyroidism, and CAD who was admitted through ER with fever and hyponatremia. For two weeks, he has been having fever and night sweats. His CXR was nl in ER; UA nl. CBC with elevated WBC to 14.6 with L shift. LA 2.1. Troponin neg x 1. His sodium found to be 122 on admission. He was admitted with fluid restr iction and his Na is 123 this morning. He is feeling better. His Tmax after admission was 100.1. currently 97.8 and vital signs are stable. His overriding sx is cough, although on ROS he also c/o bilat LE myalgias that seem to start with the coughing. He would start to cough, then run fever up to 101.9, HR to 118, would lay down, then get the sweats. - Review of Systems Constitutional: Fever Respiratory: Cough Cardiac: Edema (chronic, LLE) Musculoskeletal: Myalgias (bilat LE for the past 2 weeks - "so sore I could hardly touch them") All Other Systems: Reviewed and Negative Medications & Allergies Home Medications: Home Medication List Amlodipine Besylate 5 mg [Norvasc 5 mg] 5 mg PO DAILY 01/12/17 [History Confirmed 12/08/21] Lisinopril 20 mg [Zestril 20 MG] 20 mg PO DAILY 01/16/17 [History Confirmed 12/08/21] Allergies/Adverse Reactions: Allergies Allergy/AdvReac Type Severity Reaction Status Date / Time metronidazole Allergy Intermediate Difficulty Verified 12/08/21 19:55 Breathing Penicillins Allergy Swelling Verified 12/08/21 19:55 of Tongue and Lips - Past Medical History Past Medical History: Yes Neurological History: No Pertinent History ENT History: No Pertinent History Cardiac History: Angina, Coronary Artery Disease, Hypertension Respiratory History: No Pertinent History Endocrine Medical History: Hypothyroidism Musculoskelatal History: No Pertinent History GI Medical History: GERD, Gallbladder Disease History: No Pertinent History Pyscho-Social History: No Pertinent History Male Reproductive Disorders: No Pertinent History - Past Surgical History Past Surgical History: Yes Neuro Surgical History: No Pertinent History Cardiac History: CABG Respiratory Surgery: No Pertinent History GI Surgical History: Cholecystectomy Genitourinary Surgical Hx: No Pertinent History Musculskeletal Surgical Hx: No Pertinent History Male Surgical History: No Pertinent History - Social History Smoking Status: Former smoker Exposure to second hand smoke: No Alcohol: None Drug Use: none - Physical Exam Vital Signs: Vital Signs - 24 hr Temp Pulse Resp BP BP Pulse Ox 12/09/21 07:26 97.9 F 103 H 16 142/72 96 12/09/21 04:00 97.8 F 93 H 16 132/68 95 12/08/21 23:26 97.8 F 118 H 16 167/87 96 12/08/21 23:23 97.8 F 118 H 16 167/87 96 12/08/21 22:40 100.1 F 109 H 20 128/76 96 12/08/21 22:38 99 12/08/21 21:02 98 H 18 151/77 99 12/08/21 20:00 110 H 22 143/77 98 12/08/21 19:42 99.4 F 120 H 20 180/98 99 General Appearance: no apparent distress, alert Neurologic Exam: oriented x 3, cooperative Eye Exam: eyes nml inspection Ears, Nose, Throat Exam: moist mucous membranes Neck Exam: normal inspection, non-tender, No lymphadenopathy, No thyromegaly Respiratory Exam: normal breath sounds, lungs clear, No crackles/rales, No rhonchi, No wheezing Cardiovascular Exam: regular rate/rhythm, normal heart sounds, No murmur Gastrointestinal/Abdomen Exam: soft, normal bowel sounds, No tenderness, No distention, No mass, No guarding, No rebound Extremity Exam: swelling (1+ LLE edema, pretibial) Skin Exam: normal color, warm, dry, No rash Results - Labs Lab/Micro Results: Lab Results-Last 24 Hours 12/08/21 12/08/21 12/08/21 Range/Units 20:24 20:36 20:42 WBC 14.6 H (4.0-10.5) x10^3/uL RBC 4.39 (4.1-5.6) x10^6/uL Hgb 11.0 L (12.5-18.0) g/dL Hct 34.1 L (42-50) % MCV 77.7 L (78-100) fL MCH 25.1 L (26-32) pg MCHC 32.3 (32-36) g/dL RDW 16.3 H (11.5-14.0) % Plt Count 445 (150-450) x10^3/uL MPV 9.9 (7.5-11.0) fL Gran % 83.0 H (36.0-66.0) % Immature Gran % (Auto) 0.8 H (0.00-0.4) % Nucleat RBC Rel Count 0.0 (0.00-0.1) % Eos # (Auto) 0.19 (0-0.5) x10^3/uL Immature Gran # (Auto) 0.11 H (0.00-0.03) x10^3u/L Absolute Lymphs (auto) 0.82 L (1.0-4.6) x10^3/uL Absolute Monos (auto) 1.34 H (0.0-1.3) x10^3/uL Absolute Nucleated RBC 0.00 (0.00-0.01) x10^3u/L Lymphocytes % 5.6 L (24.0-44.0) % Monocytes % 9.2 (0.0-12.0) % Eosinophils % 1.3 (0.00-5.0) % Basophils % 0.1 (0.0-0.4) % Absolute Granulocytes 12.08 H (1.4-6.9) x10^3/uL Basophils # 0.01 (0-0.4) x10^3/uL Sodium (137-145) mmol/L Potassium (3.5-5.1) mmol/L Chloride (98-107) mmol/L Carbon Dioxide (22-30) mmol/L Anion Gap (5-15) MEQ/L BUN (9-20) mg/dL Creatinine (0.66-1.25) mg/dL Estimated GFR ML/MIN Glucose (74-106) mg/dL Lactic Acid 2.1 H (0.4-2.0) Calcium (8.4-10.2) mg/dL Total Bilirubin (0.2-1.3) mg/dL AST (17-59) U/L ALT (0-50) U/L Alkaline Phosphatase (38-126) U/L Troponin I (0.000-0.034) ng/mL Serum Total Protein (6.3-8.2) g/dL Albumin (3.5-5.0) g/dL Urinalys Dipstick Clnc MAIN LAB Urine Color YELLOW (YELLOW) Urine Appearance CLEAR (CLEAR) Urine pH 6.5 (5-6) Ur Specific [place] 1.020 (1.005-1.025) POC Urine Protein Conf NEGATIVE (Negative) Urine Ketones NEGATIVE (NEGATIVE) Urine Nitrite NEGATIVE (NEGATIVE) Urine Bilirubin NEGATIVE (NEGATIVE) Urine Urobilinogen 0.2 (0-1) mg/dL Urine Leukocytes NEGATIVE (NEGATIVE) Urine WBC (Auto) NONE (0-5) /HPF Urine RBC (Auto) 3-5 (0-2) /HPF U Epithel Cells (Auto) NONE (FEW) /HPF Urine Bacteria (Auto) NONE (NEGATIVE) /HPF Urine RBC SMALL (0-5) Ren/ul Ur Culture Indicated? NO Urine Glucose NEGATIVE (NEGATIVE) mg/dL Monoscreen (Negative) Influenza Type A Ag (NEGATIVE) Influenza Type B Ag (NEGATIVE) RSV (PCR) (Negative) SARS-CoV-2 (PCR) (NEGATIVE) 12/08/21 12/08/21 12/08/21 Range/Units 20:42 20:42 20:42 WBC (4.0-10.5) x10^3/uL RBC (4.1-5.6) x10^6/uL Hgb (12.5-18.0) g/dL Hct (42-50) % MCV (78-100) fL MCH (26-32) pg MCHC (32-36) g/dL RDW (11.5-14.0) % Plt Count (150-450) x10^3/uL MPV (7.5-11.0) fL Gran % (36.0-66.0) % Immature Gran % (Auto) (0.00-0.4) % Nucleat RBC Rel Count (0.00-0.1) % Eos # (Auto) (0-0.5) x10^3/uL Immature Gran # (Auto) (0.00-0.03) x10^3u/L Absolute Lymphs (auto) (1.0-4.6) x10^3/uL Absolute Monos (auto) (0.0-1.3) x10^3/uL Absolute Nucleated RBC (0.00-0.01) x10^3u/L Lymphocytes % (24.0-44.0) % Monocytes % (0.0-12.0) % Eosinophils % (0.00-5.0) % Basophils % (0.0-0.4) % Absolute Granulocytes (1.4-6.9) x10^3/uL Basophils # (0-0.4) x10^3/uL Sodium 122 L (137-145) mmol/L Potassium 5.1 (3.5-5.1) mmol/L Chloride 87 L (98-107) mmol/L Carbon Dioxide 27 (22-30) mmol/L Anion Gap 13.4 (5-15) MEQ/L BUN 19 (9-20) mg/dL Creatinine 0.71 (0.66-1.25) mg/dL Estimated GFR > 60.0 ML/MIN Glucose 147 H (74-106) mg/dL Lactic Acid (0.4-2.0) Calcium 8.5 (8.4-10.2) mg/dL Total Bilirubin 0.40 (0.2-1.3) mg/dL AST 68 H (17-59) U/L ALT 53 H (0-50) U/L Alkaline Phosphatase 212 H (38-126) U/L Troponin I < 0.012 (0.000-0.034) ng/mL Serum Total Protein 6.1 L (6.3-8.2) g/dL Albumin 2.9 L (3.5-5.0) g/dL Urinalys Dipstick Clnc Urine Color (YELLOW) Urine Appearance (CLEAR) Urine pH (5-6) Ur Specific [place] (1.005-1.025) POC Urine Protein Conf (Negative) Urine Ketones (NEGATIVE) Urine Nitrite (NEGATIVE) Urine Bilirubin (NEGATIVE) Urine Urobilinogen (0-1) mg/dL Urine Leukocytes (NEGATIVE) Urine WBC (Auto) (0-5) /HPF Urine RBC (Auto) (0-2) /HPF U Epithel Cells (Auto) (FEW) /HPF Urine Bacteria (Auto) (NEGATIVE) /HPF Urine RBC (0-5) Ren/ul Ur Culture Indicated? Urine Glucose (NEGATIVE) mg/dL Monoscreen NEGATIVE (Negative) Influenza Type A Ag (NEGATIVE) Influenza Type B Ag (NEGATIVE) RSV (PCR) (Negative) SARS-CoV-2 (PCR) (NEGATIVE) 12/08/21 12/09/21 12/09/21 Range/Units 20:42 04:30 04:30 WBC 14.3 H (4.0-10.5) x10^3/uL RBC 4.18 (4.1-5.6) x10^6/uL Hgb 10.6 L (12.5-18.0) g/dL Hct 31.6 L (42-50) % MCV 75.6 L (78-100) fL MCH 25.4 L (26-32) pg MCHC 33.5 (32-36) g/dL RDW 16.7 H (11.5-14.0) % Plt Count 484 H (150-450) x10^3/uL MPV 9.8 (7.5-11.0) fL Gran % (36.0-66.0) % Immature Gran % (Auto) (0.00-0.4) % Nucleat RBC Rel Count (0.00-0.1) % Eos # (Auto) (0-0.5) x10^3/uL Immature Gran # (Auto) (0.00-0.03) x10^3u/L Absolute Lymphs (auto) (1.0-4.6) x10^3/uL Absolute Monos (auto) (0.0-1.3) x10^3/uL Absolute Nucleated RBC (0.00-0.01) x10^3u/L Lymphocytes % (24.0-44.0) % Monocytes % (0.0-12.0) % Eosinophils % (0.00-5.0) % Basophils % (0.0-0.4) % Absolute Granulocytes (1.4-6.9) x10^3/uL Basophils # (0-0.4) x10^3/uL Sodium 123 L (137-145) mmol/L Potassium 4.4 (3.5-5.1) mmol/L Chloride 92 L (98-107) mmol/L Carbon Dioxide 28 (22-30) mmol/L Anion Gap 7.0 (5-15) MEQ/L BUN 14 (9-20) mg/dL Creatinine 0.61 L (0.66-1.25) mg/dL Estimated GFR > 60.0 ML/MIN Glucose 105 (74-106) mg/dL Lactic Acid (0.4-2.0) Calcium 8.0 L (8.4-10.2) mg/dL Total Bilirubin 0.80 (0.2-1.3) mg/dL AST 62 H (17-59) U/L ALT 49 (0-50) U/L Alkaline Phosphatase 190 H (38-126) U/L Troponin I (0.000-0.034) ng/mL Serum Total Protein 5.7 L (6.3-8.2) g/dL Albumin 2.6 L (3.5-5.0) g/dL Urinalys Dipstick Clnc Urine Color (YELLOW) Urine Appearance (CLEAR) Urine pH (5-6) Ur Specific [place] (1.005-1.025) POC Urine Protein Conf (Negative) Urine Ketones (NEGATIVE) Urine Nitrite (NEGATIVE) Urine Bilirubin (NEGATIVE) Urine Urobilinogen (0-1) mg/dL Urine Leukocytes (NEGATIVE) Urine WBC (Auto) (0-5) /HPF Urine RBC (Auto) (0-2) /HPF U Epithel Cells (Auto) (FEW) /HPF Urine Bacteria (Auto) (NEGATIVE) /HPF Urine RBC (0-5) Ren/ul Ur Culture Indicated? Urine Glucose (NEGATIVE) mg/dL Monoscreen (Negative) Influenza Type A Ag NEGATIVE (NEGATIVE) Influenza Type B Ag NEGATIVE (NEGATIVE) RSV (PCR) NEGATIVE (Negative) SARS-CoV-2 (PCR) NEGATIVE (NEGATIVE) - Radiology Impressions Radiology Exams & Impressions: Radiology Procedures Category Date Time Status CHEST 1 VIEW (PORTABLE) Stat Exams 12/08/21 19:56 Taken Assessment/Plan (1) Fever Current Visit: Yes Status: Acute Qualifiers: Fever type: unspecified Qualified Code(s): R50.9 - Fever, unspecified Assessment & Plan: Unsure etiology, although does look like it could be bacterial. Goal is to treat for atypical pna. He has allergies to keflex, PCN, zithromax, and flagyl listed. RN to ask what reactions were to PCN and zithromax (to keflex, had facial swelling and tongue burning). Code(s): R50.9 - FEVER, UNSPECIFIED (2) Hyponatremia Current Visit: Yes Status: Acute Assessment & Plan: Started NS, on fluid restriction. Will recheck at noon. Code(s): E87.1 - HYPO-OSMOLALITY AND HYPONATREMIA (3) Leg pain, bilateral Current Visit: Yes Status: Acute Assessment & Plan: D-dimer, CK, and uric acid pending. May need u/s bilat LE. Code(s): M79.604 - PAIN IN RIGHT LEG; M79.605 - PAIN IN LEFT LEG (4) Night sweats Current Visit: Yes Status: Acute Assessment & Plan: I think just related to his fever breaking but will do TB test. Code(s): R61 - GENERALIZED HYPERHIDROSIS
--- NOTE | 2021-12-09 08:35 | XRAY ---
Exam: AP upright portable chest film from 12/08/2021. Comparison: AP portable chest film from 12/01/2021. Indication: 76-year-old male with fever and cough. Findings: The transverse heart size is normal. Calcification within the aortic knob and mild tortuosity of both the ascending and descending thoracic aorta are again seen. There is some mild chronic central bronchial wall thickening. 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 The lungs are adequately inflated. A new small focal consolidation is seen in the projection of the right cardiophrenic angle. This could be due to minimal infiltrate and/or partial atelectasis. I also see some minimal linear transverse stranding within the lateral right lower lung field which may relate to platelike atelectasis. The remainder of the lung velázquez appears clear. The pulmonary vascularity does not appear congested. No pneumothorax or pleural fluid is seen. There are mild degenerative changes within both shoulders and throughout the thoracic spine. Impression: 1. New small focal consolidation at the medial right lung base in the projection of the right cardiophrenic angle which may be due to a small pneumonic infiltrate and/or partial atelectasis. 2. No other acute cardiopulmonary disease is seen. 3. Other incidental findings are seen, as discussed above.
[2021-12-09] MEDS ORDERED: BENADRYL 50 MG/ML IV PRN (08:57)
[2021-12-09] MEDS ORDERED: solu-MEDROL 40 MG, Sterile H2O 10 ml 1 ML IV PRN ×2 (08:57)
[2021-12-09] MEDS: ROCEPHIN 1 Gm-D5w 50 ml Bag** 1 G/50 ML IVPB IV SCH (10:00)
[2021-12-09] MEDS ORDERED: Zithromax 500 MG/ 250 ML NaCl Premix 500 MG/250 ML IVPB IV SCH (10:00)
--- NOTE | 2021-12-09 11:14 | XRAY ---
Exam: Duplex Doppler Ultrasound of the right and left lower extremity. Comparison: [None.] Indication: 76-year-old male with critical d-dimer level. Findings: The examination of the right and left lower extremity was carried out in the usual manner imaging bottling equipment sales representative sections of the common femoral vein through the popliteal vein. The posterior tibial veins were also evaluated. Normal color flow was seen throughout. Normal spontaneous and phasic flow was seen at all bottling equipment sales representative sections. There was normal transducer compression and doppler signal augmentation at all levels. The greater saphenous vein demonstrated normal compression, color blood flow, and Doppler signal bilaterally within the proximal thighs. Impression: 1. No evidence of deep venous thrombosis within the right or left lower extremity. 2. No superficial venous thrombosis was visualized within the greater saphenous veins in the proximal thighs.
[2021-12-09] MEDS: Zestril 20 MG PO SCH (11:53)
[2021-12-09] MEDS: NORVASC 5 MG PO SCH (11:53)
[2021-12-09 13:15] LABS: ANION GAP 9.1 MEQ/L (5-15); BLOOD UREA NITROGEN 15 mg/dL (9-20); CHLORIDE 93 mmol/L (98-107); Carbon Dioxide 28 mmol/L (22-30); Creatinine 1 0.78 mg/dL (0.66-1.25); EST GLOMERULAR FILTRATION RATE > 60.0 ML/MIN; Glucose 135 mg/dL (74-106); Potassium 3.9 mmol/L (3.5-5.1); SODIUM 126 mmol/L (137-145)
[2021-12-10] MEDS: Sodium Chloride 0.9% 1000 ML 1,000 ML IV SCH ×3 (01:48→23:09)
[2021-12-10 05:22] LABS: Absolute Neutrophil Ct (ANC) 10.03 x10^3/uL (1.4-6.9); Basophil (Absolute #) 0.03 x10^3/uL (0-0.4); Eosinophil % 2.6 % (0.00-5.0); Eosinophil (Absolute #) 0.32 x10^3/uL (0-0.5); Hematocrit 31.3 % (42-50); Hemoglobin 10.1 g/dL (12.5-18.0); Lymphocyte (Absolute #) 0.63 x10^3/uL (1.0-4.6); Lymphocytes % 5.1 % (24.0-44.0); Mean Cell Volume 77.3 fL (78-100); Mean Corpuscular Hemoglobin 24.9 pg (26-32); Mean Corpuscular Hgb Concent. 32.3 g/dL (32-36); Mean Platelet Volume 10.5 fL (7.5-11.0); Monocyte (Absolute #) 1.12 x10^3/uL (0.0-1.3); Monocytes % 9.1 % (0.0-12.0); Neutrophil % 81.9 % (36.0-66.0); Platelet Count 360 x10^3/uL (150-450); Red Blood Count 4.05 x10^6/uL (4.1-5.6); Red Cell Distribution Width 16.9 % (11.5-14.0); White Blood Count 12.3 x10^3/uL (4.0-10.5)
[2021-12-10 05:26] LABS: ANION GAP 6.9 MEQ/L (5-15); BLOOD UREA NITROGEN 15 mg/dL (9-20); CHLORIDE 96 mmol/L (98-107); Calcium 7.8 mg/dL (8.4-10.2); Carbon Dioxide 27 mmol/L (22-30); Creatinine 1 0.61 mg/dL (0.66-1.25); EST GLOMERULAR FILTRATION RATE > 60.0 ML/MIN; Glucose 109 mg/dL (74-106); Potassium 4.2 mmol/L (3.5-5.1); SODIUM 126 mmol/L (137-145)
[2021-12-10] MEDS: NORVASC 5 MG PO SCH (08:25)
[2021-12-10] MEDS: ROCEPHIN 1 Gm-D5w 50 ml Bag** 1 G/50 ML IVPB IV SCH (08:25)
[2021-12-10] MEDS: Zestril 20 MG PO SCH (08:25)
--- NOTE | 2021-12-10 10:43 | XRAY ---
Exam: CT of the head without IV contrast from 12/10/2021. CTDI: 53.92 mGy Comparison: [None.] Indication: 76-year-old male with hyponatremia; rule out intracranial pathology. Technique: Non-IV contrast axial images were obtained through the brain. Reconstructed coronal and sagittal images were created and reviewed. Findings: The ventricles are within normal limits of size for age. No focal mass effect or midline shift is seen. I see no acute intracranial bleed or abnormal extra-axial fluid collection. There is a tiny lacunar infarct within the upper lateral aspect of the left thalamus on axial image #32. In addition, mild to moderate scattered bilateral periventricular and subcortical white matter changes are seen, most likely due to chronic small vessel ischemic disease. No other discrete low attenuation infarct is seen. Structures of the posterior fossa appear unremarkable. The cortical sulci and sylvian fissures appear unremarkable for age. The calvarium of the skull appears intact without fracture. The visualized paranasal sinuses reveal minimal focal mucosal thickening or a tiny polyp/retention cyst at the anterior medial aspect of the right maxillary sinus on axial image #7. Otherwise, the paranasal sinuses appear essentially clear. There is mild deviation of the nasal septum toward the right. The mastoid air cells reveals some focal mucosal thickening within the inferior medial margin of the left mastoid. An effusion is not seen. The middle ear cavities appear unremarkable. The orbits are remarkable for a 2 mm oval-shaped apparent calcification at the anterior medial margin of the globe of the left eye on axial images #14 and #15. This would appear to be on the sclera. No other calcifications or orbital abnormality is seen. Impression: 1. No acute intracranial bleed is seen. 2. Tiny lacunar infarct within the left thalamus and findings consistent with moderate bilateral periventricular and subcortical chronic small vessel ischemic white matter changes are seen. 3. No other acute intracranial abnormality is seen. 4. Apparent 2 mm calcification on the sclera on the anterior medial aspect of the left I. See axial image #15.
--- NOTE | 2021-12-10 13:35 | PCM.NOTE ---
Date and Time: 12/10/21 1331 Subjective Assessment: Pt is feeling much better. Temp last night to 100.9. Elizabeth po. - Review of Systems Constitutional: Fever Respiratory: Cough Objective Exam General Appearance: no apparent distress, alert Neurologic Exam: oriented x 3, cooperative, normal mood/affect Skin Exam: normal color, warm, dry, No rash Eye Exam: eyes nml inspection Ears, Nose, Throat Exam: moist mucous membranes Neck Exam: normal inspection Respiratory Exam: normal breath sounds, lungs clear, No crackles/rales, No rhonchi, No wheezing Cardiovascular Exam: regular rate/rhythm, normal heart sounds, No murmur Gastrointestinal/Abdomen Exam: soft, normal bowel sounds, No tenderness, No distention, No mass, No guarding, No rebound Extremity Exam: normal inspection, No pedal edema, No swelling Back Exam: normal inspection, No rash OBJECTIVE DATA Vital Signs: Vital Signs - 24 hr Temp Pulse Resp BP Pulse Ox 12/10/21 08:00 98.2 F 86 16 152/74 97 12/10/21 04:00 99.0 F 84 20 124/66 98 12/10/21 00:00 99.6 F 89 17 120/58 97 12/09/21 20:00 100.6 F 100 H 19 117/57 96 12/09/21 16:00 100.9 F 112 H 17 140/68 95 Pain Assessment - Last Documented Pain Intensity 9 Intake and Output: Intake & Output 12/08/21 12/09/21 12/10/21 12/11/21 11:59 11:59 11:59 11:59 Intake Total 280 1599 Balance 280 1599 Weight 74.9 kg Lab Results: Lab Results-Last 24 Hours 12/10/21 12/10/21 Range/Units 04:58 04:58 WBC 12.3 H (4.0-10.5) x10^3/uL RBC 4.05 L (4.1-5.6) x10^6/uL Hgb 10.1 L (12.5-18.0) g/dL Hct 31.3 L (42-50) % MCV 77.3 L (78-100) fL MCH 24.9 L (26-32) pg MCHC 32.3 (32-36) g/dL RDW 16.9 H (11.5-14.0) % Plt Count 360 (150-450) x10^3/uL MPV 10.5 (7.5-11.0) fL Gran % 81.9 H (36.0-66.0) % Immature Gran % (Auto) 1.1 H (0.00-0.4) % Nucleat RBC Rel Count 0.0 (0.00-0.1) % Eos # (Auto) 0.32 (0-0.5) x10^3/uL Immature Gran # (Auto) 0.14 H (0.00-0.03) x10^3u/L Absolute Lymphs (auto) 0.63 L (1.0-4.6) x10^3/uL Absolute Monos (auto) 1.12 (0.0-1.3) x10^3/uL Absolute Nucleated RBC 0.00 (0.00-0.01) x10^3u/L Lymphocytes % 5.1 L (24.0-44.0) % Monocytes % 9.1 (0.0-12.0) % Eosinophils % 2.6 (0.00-5.0) % Basophils % 0.2 (0.0-0.4) % Absolute Granulocytes 10.03 H (1.4-6.9) x10^3/uL Basophils # 0.03 (0-0.4) x10^3/uL Sodium 126 L (137-145) mmol/L Potassium 4.2 (3.5-5.1) mmol/L Chloride 96 L (98-107) mmol/L Carbon Dioxide 27 (22-30) mmol/L Anion Gap 6.9 (5-15) MEQ/L BUN 15 (9-20) mg/dL Creatinine 0.61 L (0.66-1.25) mg/dL Estimated GFR > 60.0 ML/MIN Glucose 109 H (74-106) mg/dL Calcium 7.8 L (8.4-10.2) mg/dL Radiology Exams: Radiology Procedures Category Date Time Status CHEST 1 VIEW (PORTABLE) Stat Exams 12/08/21 19:56 Completed HEAD WITHOUT CONTRAST [CT] Routine Exams 12/10/21 09:09 Completed VENOUS BILATERAL EXTREMITY [US] Stat Exams 12/09/21 10:33 Completed Multi-Disciplinary Progress Notes: Multi-Disciplinary Progress Notes 12/10/21 10:55 Case Management Note by Tiffany Gastelum REVIEWED CHART- DO NOT ANTICIPATE ANY CHANGES IN DC PLANS AT THIS TIME Initialized on 12/10/21 10:55 - END OF NOTE Assessment/Plan (1) Pneumonia Current Visit: Yes Status: Acute Qualifiers: Pneumonia type: due to unspecified organism Laterality: left Lung location: lower lobe of lung Qualified Code(s): J18.9 - Pneumonia, unspecified organism Assessment & Plan: On day #2 rocephin IV. Code(s): J18.9 - PNEUMONIA, UNSPECIFIED ORGANISM (2) Hyponatremia Current Visit: Yes Status: Chronic Assessment & Plan: Na was 133 in 2019, so this is somewhat chronic, but unsure how long it's been moderately low. Will CT head to r/o intracranial pathology; if neg, will consult nephrology. Code(s): E87.1 - HYPO-OSMOLALITY AND HYPONATREMIA (3) Leg pain, bilateral Current Visit: Yes Status: Acute Assessment & Plan: improved today. Code(s): M79.604 - PAIN IN RIGHT LEG; M79.605 - PAIN IN LEFT LEG (4) Night sweats Current Visit: Yes Status: Acute Assessment & Plan: I suspect just due to his fever, but TB test is pending (Quantiferon). Code(s): R61 - GENERALIZED HYPERHIDROSIS
[2021-12-10] MEDS ORDERED: TYLENOL 325 MG PO PRN (17:16)
[2021-12-10] MEDS: Levofloxacin 500MG/100ML D5W 500 MG/100 ML BAG IV SCH (18:24)
[2021-12-11 06:48] LABS: Basophil (Absolute #) 0.03 x10^3/uL (0-0.4); Eosinophil % 3.1 % (0.00-5.0); Eosinophil (Absolute #) 0.34 x10^3/uL (0-0.5); Hemoglobin 10.4 g/dL (12.5-18.0); Lymphocyte (Absolute #) 0.62 x10^3/uL (1.0-4.6); Lymphocytes % 5.6 % (24.0-44.0); Mean Cell Volume 78.4 fL (78-100); Mean Corpuscular Hemoglobin 24.7 pg (26-32); Mean Corpuscular Hgb Concent. 31.5 g/dL (32-36); Monocyte (Absolute #) 1.01 x10^3/uL (0.0-1.3); Monocytes % 9.2 % (0.0-12.0); Platelet Count 385 x10^3/uL (150-450); Red Blood Count 4.21 x10^6/uL (4.1-5.6); Red Cell Distribution Width 16.9 % (11.5-14.0)
--- NOTE | 2021-12-11 09:04 | PCM.NOTE ---
Date and Time: 12/11/21 0858 Subjective Assessment: He is feeling so much better after starting his levaquin last night. Cough is more productive. Elizabeth po well. Last fever 102.4 at 1936 yesterday. - Review of Systems Constitutional: Fever Respiratory: Cough Objective Exam General Appearance: no apparent distress, alert Neurologic Exam: oriented x 3, cooperative, normal mood/affect Skin Exam: normal color, warm, dry, No rash Eye Exam: eyes nml inspection Ears, Nose, Throat Exam: moist mucous membranes Neck Exam: normal inspection Respiratory Exam: normal breath sounds, lungs clear, No crackles/rales, No rhonchi, No wheezing Cardiovascular Exam: regular rate/rhythm, normal heart sounds, No murmur Extremity Exam: normal inspection, No pedal edema, No swelling Back Exam: normal inspection, No rash OBJECTIVE DATA Vital Signs: Vital Signs - 24 hr Temp Pulse Resp BP Pulse Ox 12/11/21 08:00 98.4 F 99 H 16 148/86 98 12/11/21 04:00 18 94 L 12/11/21 00:00 97.7 F 95 H 18 132/70 97 12/10/21 19:58 97.7 F 119 H 20 139/71 95 12/10/21 19:36 102.4 F 120 H 16 171/79 96 12/10/21 16:00 102.4 F 120 H 16 171/79 96 12/10/21 12:00 98.8 F 104 H 16 186/84 100 Pain Assessment - Last Documented Pain Intensity 9 Pain Scale Used 0-10 Pain Scale Intake and Output: Intake & Output 12/08/21 12/09/21 12/10/21 12/11/21 11:59 11:59 11:59 11:59 Intake Total 280 1599 1811 Balance 280 1599 1811 Weight 74.9 kg Lab Results: Lab Results-Last 24 Hours 12/10/21 12/11/21 Range/Units 16:05 06:40 WBC 11.0 H (4.0-10.5) x10^3/uL RBC 4.21 (4.1-5.6) x10^6/uL Hgb 10.4 L (12.5-18.0) g/dL Hct 33.0 L (42-50) % MCV 78.4 (78-100) fL MCH 24.7 L (26-32) pg MCHC 31.5 L (32-36) g/dL RDW 16.9 H (11.5-14.0) % Plt Count 385 (150-450) x10^3/uL MPV 9.0 (7.5-11.0) fL Gran % 81.0 H (36.0-66.0) % Immature Gran % (Auto) 0.8 H (0.00-0.4) % Nucleat RBC Rel Count 0.0 (0.00-0.1) % Eos # (Auto) 0.34 (0-0.5) x10^3/uL Immature Gran # (Auto) 0.09 H (0.00-0.03) x10^3u/L Absolute Lymphs (auto) 0.62 L (1.0-4.6) x10^3/uL Absolute Monos (auto) 1.01 (0.0-1.3) x10^3/uL Absolute Nucleated RBC 0.00 (0.00-0.01) x10^3u/L Lymphocytes % 5.6 L (24.0-44.0) % Monocytes % 9.2 (0.0-12.0) % Eosinophils % 3.1 (0.00-5.0) % Basophils % 0.3 (0.0-0.4) % Absolute Granulocytes 8.90 H (1.4-6.9) x10^3/uL Basophils # 0.03 (0-0.4) x10^3/uL Urine Sodium 158 H (30-90) mmol/L Radiology Exams: Radiology Procedures Category Date Time Status HEAD WITHOUT CONTRAST [CT] Routine Exams 12/10/21 09:09 Completed VENOUS BILATERAL EXTREMITY [US] Stat Exams 12/09/21 10:33 Completed Multi-Disciplinary Progress Notes: Multi-Disciplinary Progress Notes 12/10/21 10:55 Case Management Note by Tiffany Gastelum REVIEWED CHART- DO NOT ANTICIPATE ANY CHANGES IN DC PLANS AT THIS TIME Initialized on 12/10/21 10:55 - END OF NOTE Assessment/Plan (1) Pneumonia Current Visit: Yes Status: Acute Qualifiers: Pneumonia type: due to unspecified organism Laterality: left Lung location: lower lobe of lung Qualified Code(s): J18.9 - Pneumonia, unspecified organism Assessment & Plan: Much better on levaquin, day #2 today (after 2d rocephin IV). He will get levaquin today mid afternoon, then plan levaquin tomorrow at noon then discharge to home is likely. Code(s): J18.9 - PNEUMONIA, UNSPECIFIED ORGANISM (2) Hyponatremia Current Visit: Yes Status: Chronic Assessment & Plan: He has been asymptomatic since the day after admission (sx may have always been attributable to pneumonia). Code(s): E87.1 - HYPO-OSMOLALITY AND HYPONATREMIA (3) Leg pain, bilateral Current Visit: Yes Status: Acute Assessment & Plan: no complaint today Code(s): M79.604 - PAIN IN RIGHT LEG; M79.605 - PAIN IN LEFT LEG (4) Night sweats Current Visit: Yes Status: Acute Assessment & Plan: TB test is pending - I think was just due to fever/pneumonia. Code(s): R61 - GENERALIZED HYPERHIDROSIS
[2021-12-11 09:33] LABS: ANION GAP 10.1 MEQ/L (5-15); BLOOD UREA NITROGEN 13 mg/dL (9-20); CHLORIDE 99 mmol/L (98-107); Carbon Dioxide 23 mmol/L (22-30); EST GLOMERULAR FILTRATION RATE > 60.0 ML/MIN; Glucose 102 mg/dL (74-106); Potassium 3.9 mmol/L (3.5-5.1); SODIUM 128 mmol/L (137-145)
[2021-12-11] MEDS: Sodium Chloride 0.9% 1000 ML 1,000 ML IV SCH ×2 (09:47→22:19)
[2021-12-11] MEDS: Zestril 20 MG PO SCH (09:50)
[2021-12-11] MEDS: NORVASC 5 MG PO SCH (09:50)
[2021-12-11] MEDS: Levofloxacin 500MG/100ML D5W 500 MG/100 ML BAG IV SCH (09:50)
[2021-12-11 10:06] LABS: QuantiFERON-TB Gold Plus Negative (Negative)
[2021-12-12 04:34] VITALS: O2SAT 95
[2021-12-12 05:29] LABS: Basophil (Absolute #) 0.02 x10^3/uL (0-0.4); Eosinophil % 1.4 % (0.00-5.0); Eosinophil (Absolute #) 0.18 x10^3/uL (0-0.5); Hematocrit 32.6 % (42-50); Hemoglobin 10.6 g/dL (12.5-18.0); Lymphocyte (Absolute #) 0.54 x10^3/uL (1.0-4.6); Lymphocytes % 4.2 % (24.0-44.0); Mean Cell Volume 76.2 fL (78-100); Mean Corpuscular Hemoglobin 24.8 pg (26-32); Mean Corpuscular Hgb Concent. 32.5 g/dL (32-36); Mean Platelet Volume 9.9 fL (7.5-11.0); Monocyte (Absolute #) 1.11 x10^3/uL (0.0-1.3); Monocytes % 8.7 % (0.0-12.0); Neutrophil % 84.9 % (36.0-66.0); Platelet Count 438 x10^3/uL (150-450); Red Blood Count 4.28 x10^6/uL (4.1-5.6); Red Cell Distribution Width 17.3 % (11.5-14.0); White Blood Count 12.7 x10^3/uL (4.0-10.5)
[2021-12-12 05:55] LABS: ANION GAP 8.9 MEQ/L (5-15); BLOOD UREA NITROGEN 14 mg/dL (9-20); CHLORIDE 100 mmol/L (98-107); Calcium 8.2 mg/dL (8.4-10.2); Carbon Dioxide 24 mmol/L (22-30); EST GLOMERULAR FILTRATION RATE > 60.0 ML/MIN; Glucose 116 mg/dL (74-106); Potassium 3.8 mmol/L (3.5-5.1); SODIUM 129 mmol/L (137-145)
[2021-12-12 07:55] LABS: Slide Review 1 YES
[2021-12-12 07:56] VITALS: BP 133/69; PULSE 105
[2021-12-12] MEDS: Levofloxacin 500MG/100ML D5W 500 MG/100 ML BAG IV SCH (08:36)
[2021-12-12] MEDS: NORVASC 5 MG PO SCH (08:40)
[2021-12-12] MEDS: Zestril 20 MG PO SCH (08:40)
--- NOTE | 2021-12-12 09:28 | PCM.DS ---
Discharge Summary Date of Admission: 12/09/21 08:26 Date of Discharge: 12/12/2021 Admitting Physician: SARAH BEACH Consults: Consults on Case 12/10/21 13:35 Consult Nephrology ROUTINE Primary Care Provider: JEFERSON LOONEY Allergies Allergies metronidazole Allergy (Intermediate, Verified 12/08/21 19:55) Difficulty Breathing ALSO HALLUCINATIONS azithromycin [From Zithromax] Allergy (Verified 12/12/21 08:06) cephalexin [From Keflex] Allergy (Verified 12/12/21 08:05) facial swelling, tongue buring Penicillins Allergy (Verified 12/08/21 19:55) Swelling of Tongue and Lips Hospital Summary - Vitals & Intake/Output Vital Signs: Vital Signs Temperature 98.0 F 12/12/21 07:55 Pulse Rate 105 H 12/12/21 07:55 Respiratory Rate 16 12/12/21 07:55 Blood Pressure 133/69 12/12/21 07:55 O2 Sat by Pulse Oximetry 95 12/12/21 07:55 Intake & Output: Intake & Output 12/09/21 12/10/21 12/11/21 12/12/21 11:59 11:59 11:59 11:59 Intake Total 280 1599 1811 2889 Balance 280 1599 1811 2889 Weight 74.9 kg - Lab Result Diagrams: 12/12/21 04:45 12/12/21 04:45 Lab Results-Last 24 Hrs: Lab Results-Last 24 Hours 12/09/21 12/11/21 12/12/21 Range/Units 09:13 06:40 04:45 WBC 12.7 H (4.0-10.5) x10^3/uL RBC 4.28 (4.1-5.6) x10^6/uL Hgb 10.6 L (12.5-18.0) g/dL Hct 32.6 L (42-50) % MCV 76.2 L (78-100) fL MCH 24.8 L (26-32) pg MCHC 32.5 (32-36) g/dL RDW 17.3 H (11.5-14.0) % Plt Count 438 (150-450) x10^3/uL MPV 9.9 (7.5-11.0) fL Gran % 84.9 H (36.0-66.0) % Immature Gran % (Auto) 0.6 H (0.00-0.4) % Nucleat RBC Rel Count 0.0 (0.00-0.1) % Eos # (Auto) 0.18 (0-0.5) x10^3/uL Immature Gran # (Auto) 0.08 H (0.00-0.03) x10^3u/L Absolute Lymphs (auto) 0.54 L (1.0-4.6) x10^3/uL Absolute Monos (auto) 1.11 (0.0-1.3) x10^3/uL Absolute Nucleated RBC 0.00 (0.00-0.01) x10^3u/L Lymphocytes % 4.2 L (24.0-44.0) % Monocytes % 8.7 (0.0-12.0) % Eosinophils % 1.4 (0.00-5.0) % Basophils % 0.2 (0.0-0.4) % Absolute Granulocytes 10.80 H (1.4-6.9) x10^3/uL Basophils # 0.02 (0-0.4) x10^3/uL Sodium 128 L (137-145) mmol/L Potassium 3.9 (3.5-5.1) mmol/L Chloride 99 (98-107) mmol/L Carbon Dioxide 23 (22-30) mmol/L Anion Gap 10.1 (5-15) MEQ/L BUN 13 (9-20) mg/dL Creatinine 0.50 L (0.66-1.25) mg/dL Estimated GFR > 60.0 ML/MIN Glucose 102 (74-106) mg/dL Calcium 8.0 L (8.4-10.2) mg/dL TB (QFT) Incubation TB Test (QFT) Nil 0.04 (.) IU/mL TB Test (QFT) Mitogen 4.21 (.) IU/mL TB Test (QFT) Ag 1 0.04 (.) IU/mL TB Test (QFT) Ag 2 0.04 (.) IU/mL TB Test (QFT) Negative (Negative) TB Test (QFT) Criteria Comment (.) Slides for Path Review YES 12/12/21 Range/Units 04:45 WBC (4.0-10.5) x10^3/uL RBC (4.1-5.6) x10^6/uL Hgb (12.5-18.0) g/dL Hct (42-50) % MCV (78-100) fL MCH (26-32) pg MCHC (32-36) g/dL RDW (11.5-14.0) % Plt Count (150-450) x10^3/uL MPV (7.5-11.0) fL Gran % (36.0-66.0) % Immature Gran % (Auto) (0.00-0.4) % Nucleat RBC Rel Count (0.00-0.1) % Eos # (Auto) (0-0.5) x10^3/uL Immature Gran # (Auto) (0.00-0.03) x10^3u/L Absolute Lymphs (auto) (1.0-4.6) x10^3/uL Absolute Monos (auto) (0.0-1.3) x10^3/uL Absolute Nucleated RBC (0.00-0.01) x10^3u/L Lymphocytes % (24.0-44.0) % Monocytes % (0.0-12.0) % Eosinophils % (0.00-5.0) % Basophils % (0.0-0.4) % Absolute Granulocytes (1.4-6.9) x10^3/uL Basophils # (0-0.4) x10^3/uL Sodium 129 L (137-145) mmol/L Potassium 3.8 (3.5-5.1) mmol/L Chloride 100 (98-107) mmol/L Carbon Dioxide 24 (22-30) mmol/L Anion Gap 8.9 (5-15) MEQ/L BUN 14 (9-20) mg/dL Creatinine 0.50 L (0.66-1.25) mg/dL Estimated GFR > 60.0 ML/MIN Glucose 116 H (74-106) mg/dL Calcium 8.2 L (8.4-10.2) mg/dL TB (QFT) Incubation TB Test (QFT) Nil (.) IU/mL TB Test (QFT) Mitogen (.) IU/mL TB Test (QFT) Ag 1 (.) IU/mL TB Test (QFT) Ag 2 (.) IU/mL TB Test (QFT) (Negative) TB Test (QFT) Criteria (.) Slides for Path Review Micro Results-Entire Visit: Microbiology 12/08/21 20:42 Blood Culture - Preliminary Blood NO GROWTH TO DATE 12/08/21 20:42 Blood Culture - Preliminary Blood NO GROWTH TO DATE - Radiology Exams Ordered Rad Exams-Entire Visit: Radiology Procedures Category Date Time Status HEAD WITHOUT CONTRAST [CT] Routine Exams 12/10/21 09:09 Completed - Discharge Disposition: Home, Self-Care Condition: Good Prescriptions: New Levofloxacin [Levofloxacin 500 MG Tablet] 500 mg PO DAILY #5 tablet Continue Amlodipine Besylate 5 mg [Norvasc 5 mg] 5 mg PO DAILY Lisinopril 20 mg [Zestril 20 MG] 20 mg PO DAILY Aspirin 81 gm Chew [Baby Aspirin 81 mg Chew] 81 mg PO DAILY Additional Instructions: LABS weekly on Fridays at [facility] (hospital lab) BMP weekly x 3 weeks copy to Jeferson Looney NP. Follow up with: MARCELA MENDEZ [CONSULTING PHYSICIAN] - JEFERSON LOONEY NP [Primary Care Provider] - 12/18/21 9:30 am
== END 2021-12-12 10:10 | disposition home or self-care (01) | DRG 194 ==
LOC: ED 19:35 → MED SURG 23:03 → OBSVTOIN 12-09 08:26 → MED SURG 12-09 14:05
PROVIDERS: ADMIT Family Medicine; ATTEND Family Medicine
DX: J18.9 Pneumonia, unspecified organism (principal); E87.1 Hypo-osmolality and hyponatremia; R53.1 Weakness; R51.9 Headache, unspecified; I10 Essential (primary) hypertension; E03.9 Hypothyroidism, unspecified; M79.604 Pain in right leg; M79.605 Pain in left leg; R61 Generalized hyperhidrosis; E78.5 Hyperlipidemia, unspecified; M79.18 Myalgia, other site; Z79.899 Other long term (current) drug therapy; Z20.828 Contact with and (suspected) exposure to other viral communicable diseases
CPT/HCPCS: 0241U; 36000; 36415; 70450; 71045; 80048; 80053; 81015; 82550; 83605; 83935; 84300; 84484; 84550; 85025; 85027; 85379; 86308; 86480; 87040; 87070; 93005; 93970; 96360; 99285; G0378; J0696; J1956; A9270-GY

== ENCOUNTER 2021-12-16 14:33 | Observation (INO) | payer MEDICARE, OTHER ==
[2021-12-16 15:28] LABS: Hematocrit 32.3 % (42-50); Hemoglobin 10.6 g/dL (12.5-18.0); Mean Cell Volume 77.5 fL (78-100); Mean Corpuscular Hemoglobin 25.4 pg (26-32); Mean Corpuscular Hgb Concent. 32.8 g/dL (32-36); Mean Platelet Volume 9.3 fL (7.5-11.0); Platelet Count 439 x10^3/uL (150-450); Red Blood Count 4.17 x10^6/uL (4.1-5.6); Red Cell Distribution Width 17.2 % (11.5-14.0); White Blood Count 12.5 x10^3/uL (4.0-10.5)
[2021-12-16] MEDS ORDERED: Sodium Chloride 0.9% 10 ML FLUSH Syringe IV PRN (15:30)
[2021-12-16] MEDS ORDERED: Sodium Chloride 0.9% 1000 ML 1,000 ML IV SCH (15:30)
[2021-12-16 15:57] LABS: ALBUMIN 2.9 g/dL (3.5-5.0); ALKALINE PHOSPHATASE 245 U/L (38-126); ANION GAP 9.9 MEQ/L (5-15); BLOOD UREA NITROGEN 17 mg/dL (9-20); CHLORIDE 94 mmol/L (98-107); Calcium 7.8 mg/dL (8.4-10.2); Carbon Dioxide 26 mmol/L (22-30); Creatinine 1 0.67 mg/dL (0.66-1.25); EST GLOMERULAR FILTRATION RATE > 60.0 ML/MIN; Glucose 120 mg/dL (74-106); PROCALCITONIN 0.115 ng/mL (0.030-0.080); SGOT/AST 137 U/L (17-59); SGPT/ALT 86 U/L (0-50); SODIUM 126 mmol/L (137-145)
[2021-12-16] MEDS ORDERED: Levofloxacin 500MG/100ML D5W 500 MG/100 ML BAG IV SCH (16:00)
[2021-12-16] MEDS ORDERED: ENOXAPARIN SODIUM SQ SCH (16:00)
[2021-12-16 16:06] LABS: INFLUENZA A NEGATIVE (NEGATIVE); INFLUENZA B NEGATIVE (NEGATIVE); RESPIRATORY SYNCTIAL VIRUS NEGATIVE (Negative); SARS-CoV-2 Xpert Express NEGATIVE (NEGATIVE)
--- NOTE | 2021-12-16 16:31 | XRAY ---
Indication: Dyspnea. Recurrent cough. Comparison: December 08, 2021 Portable chest is now clear. Heart not enlarged again with CABG. No new/acute findings.
--- NOTE | 2021-12-16 16:48 | XRAY ---
Indication: Elevated d-dimer. Two-dimensional sonogram and color Doppler imaging of the major venous vessels of the left leg performed. Comparison: December 09, 2021 No thrombus seen in the examined deep venous vessels of the left leg including greater saphenous vein. Veins demonstrate normal compressibility. Venous waveforms are normal with and without augmentation. Impression: Compared to exam one week ago, left leg remains negative for DVT
[2021-12-16] MEDS: PROVENTIL 2.5 MG/3 ML NEB IH SCH (18:55)
[2021-12-16] MEDS: Sodium Chloride 0.9% 10 ML FLUSH Syringe IV SCH (21:59)
[2021-12-17 02:51] LABS: Hematocrit 29.9 % (42-50); Hemoglobin 9.8 g/dL (12.5-18.0); Mean Cell Volume 77.9 fL (78-100); Mean Corpuscular Hemoglobin 25.5 pg (26-32); Mean Corpuscular Hgb Concent. 32.8 g/dL (32-36); Mean Platelet Volume 8.8 fL (7.5-11.0); Platelet Count 405 x10^3/uL (150-450); Red Blood Count 3.84 x10^6/uL (4.1-5.6); Red Cell Distribution Width 17.2 % (11.5-14.0); White Blood Count 10.6 x10^3/uL (4.0-10.5)
[2021-12-17 03:06] LABS: ALBUMIN 2.5 g/dL (3.5-5.0); ALKALINE PHOSPHATASE 187 U/L (38-126); ANION GAP 6.5 MEQ/L (5-15); BLOOD UREA NITROGEN 16 mg/dL (9-20); CHLORIDE 97 mmol/L (98-107); Calcium 7.7 mg/dL (8.4-10.2); Carbon Dioxide 27 mmol/L (22-30); Creatinine 1 0.54 mg/dL (0.66-1.25); EST GLOMERULAR FILTRATION RATE > 60.0 ML/MIN; Glucose 107 mg/dL (74-106); Potassium 4.3 mmol/L (3.5-5.1); SGOT/AST 87 U/L (17-59); SGPT/ALT 68 U/L (0-50); SODIUM 126 mmol/L (137-145); Total Protein 5.4 g/dL (6.3-8.2)
[2021-12-17] MEDS: Sodium Chloride 0.9% 10 ML FLUSH Syringe IV SCH (06:06)
[2021-12-17] MEDS: PROVENTIL 2.5 MG/3 ML NEB IH SCH (06:42)
[2021-12-17 06:45] VITALS: PULSE 89; O2SAT 97
[2021-12-17 07:31] VITALS: BP 136/68
--- NOTE | 2021-12-17 08:43 | XRAY ---
Indication: Cough. Elevated d-dimer. Multiple contiguous axial images obtained through the chest using 80 cc Isovue 370 contrast and PE protocol. Comparison: None Adequate opacification of the pulmonary arteries. However mild diffuse respiration artifact limits evaluation for pulmonary embolus. No obvious pulmonary embolus. Heart not enlarged with CABG surgery. Aorta is normal in course and caliber. Small left perihilar calcified nodes. No pathologic mediastinal/hilar lymphadenopathy. Small hiatal hernia. Lungs demonstrates mild pulmonary emphysema and scattered fibrosis/scarring. No suspicious pulmonary mass, infiltrate, effusion, or pneumothorax. Bony thorax intact with osteopenia, mild/moderate degenerative changes throughout the spine, and sternotomy wires. Limited upper abdomen demonstrates diffuse fatty liver, 13 cm splenomegaly, 1 cm right renal cyst, and cholecystectomy clips. Impression: 1. Pulmonary embolus evaluation limited by respiration artifact. No obvious pulmonary embolus or acute cardiopulmonary abnormalities. 2. Chronic findings including pulmonary emphysema, pulmonary fibrosis/scarring, hiatal hernia, chronic bony findings, fatty liver, splenomegaly, and right renal cyst.
[2021-12-17 09:12] LABS: Appearance CLEAR (CLEAR); Bilirubin NEGATIVE (NEGATIVE); Glucose NEGATIVE (NEGATIVE); Ketones NEGATIVE (NEGATIVE); Protein,Urine Dip NEGATIVE (Negative); RBC SMALL Ery/ul (0-5); Specific Gravity 1.015 (1.005-1.025); WBC 0-2 /HPF (0-5)
[2021-12-17 09:13] LABS: Dipstick done @ ? MAIN LAB; Nitrite NEGATIVE (NEGATIVE); Urine Cultured Indicated? NO; Urobilinogen 0.2 mg/dL (0-1)
[2021-12-17] MEDS ORDERED: NORVASC 5 MG PO SCH (10:00)
[2021-12-17] MEDS ORDERED: BABY ASPIRIN 81 MG CHEW PO SCH (10:00)
[2021-12-17] MEDS ORDERED: ECOTRIN 81 MG PO SCH (10:00)
[2021-12-17] MEDS ORDERED: Zestril 20 MG PO SCH (10:00)
--- NOTE | 2021-12-18 12:51 | ECHO ---
Transthoracic echocardiographic examination and color Doppler was done on 12/16/2021. INDICATION: Shortness of breath. IMPRESSION: 1) NO REGIONAL WALL MOTION ABNORMALITY. ESTIMATED GLOBAL LEFT VENTRICULAR EJECTION FRACTION AROUND 60%. 2) TRACE MITRAL REGURGITATION. 3) TRACE TRICUSPID REGURGITATION. RIGHT VENTRICULAR SYSTOLIC PRESSURE OF 36 MM OF MERCURY. 4) LEFT VENTRICULAR HYPERTROPHY. 5) LEFT ATRIAL ENLARGEMENT. The left ventricle is visualized and demonstrated adequate contractility with no wall motion abnormality noted. The left ventricular ejection fraction is around 60%. There is mild left ventricular hypertrophy. The mitral valve is seen and this opens adequately. There is trace mitral regurgitation. Left atrium is mildly enlarged. The aortic valve is thickened but opens adequately. There is no significant gradient across the left ventricular outflow tract. The basal septum is prominent. The ascending aorta appears to be sclerotic. The right side chambers are normal. There is trace tricuspid regurgitation. The right ventricular systolic pressure of 36 mm of Mercury.
--- NOTE | 2022-01-08 06:01 | PCM.SSS ---
History of Present Illness - Chief Complaint Chief Complaint: DYSPNEA Date: 12/17/21 History of Present Illness: is a 76 year old male. Pt. presented to office with worsening sob, and in general an ill appearance. Pt. reported poor po intake and general weak ness. pt. was felt to need iv hydration, oxygen support and treatment for worsening of pneumonia as he was recently hospitalized and sent home on po levaquin. - Review of Systems Constitutional: Weakness, No Fever, No Chills Eyes: No Symptoms Ears, Nose, & Throat: No Symptoms Respiratory: Cough, Short Of Breath, Wheezing Cardiac: No Chest Pain, No Edema, No Syncope Abdominal/Gastrointestinal: No Abdominal Pain, No Nausea, No Vomiting, No Diarrhea Genitourinary Symptoms: No Dysuria Musculoskeletal: No Back Pain, No Neck Pain Skin: No Rash Neurological: No Dizziness, No Focal Weakness, No Sensory Changes Psychological: No Symptoms Endocrine: No Symptoms Hematologic/Lymphatic: No Symptoms Immunological/Allergic: No Symptoms Medications & Allergies Home Medications: Home Medication List Amlodipine Besylate 5 mg [Norvasc 5 mg] 5 mg PO DAILY 01/12/17 [History Confirmed 12/16/21] Lisinopril 20 mg [Zestril 20 MG] 20 mg PO DAILY 01/16/17 [History Confirmed 12/16/21] Aspirin 81 gm Chew [Baby Aspirin 81 mg Chew] 81 mg PO DAILY 12/10/21 [History Confirmed 12/16/21] Aspirin EC 81 mg [Ecotrin 81 mg] 81 mg PO DAILY tablet 12/17/21 [Rx] Levofloxacin [Levofloxacin 500 MG Tablet] 500 mg PO DAILY #5 tablet 12/17/21 [Rx] Allergies/Adverse Reactions: Allergies Allergy/AdvReac Type Severity Reaction Status Date / Time metronidazole Allergy Intermediate Difficulty Verified 12/16/21 15:26 Breathing azithromycin [From Zithromax] Allergy Verified 12/16/21 15:26 cephalexin [From Keflex] Allergy facial Verified 12/16/21 15:26 swelling, tongue buring Penicillins Allergy Swelling Verified 12/16/21 15:26 of Tongue and Lips - Past Medical History Past Medical History: Yes Neurological History: No Pertinent History ENT History: No Pertinent History Cardiac History: Angina, Coronary Artery Disease, Hypertension Respiratory History: No Pertinent History Endocrine Medical History: Hypothyroidism Musculoskelatal History: No Pertinent History GI Medical History: GERD, Gallbladder Disease History: No Pertinent History Pyscho-Social History: No Pertinent History Male Reproductive Disorders: No Pertinent History - Past Surgical History Past Surgical History: Yes Neuro Surgical History: No Pertinent History Cardiac History: CABG Respiratory Surgery: No Pertinent History GI Surgical History: Cholecystectomy Genitourinary Surgical Hx: No Pertinent History Musculskeletal Surgical Hx: No Pertinent History Male Surgical History: No Pertinent History - Social History Smoking Status: Former smoker Exposure to second hand smoke: No Alcohol: None Drug Use: none - Physical Exam General Appearance: no apparent distress, alert Neurologic Exam: alert, oriented x 3, cooperative, normal mood/affect, nml cerebellar function, nml station & gait, sensation nml, No motor deficits Eye Exam: PERRL/EOMI, eyes nml inspection Ears, Nose, Throat Exam: normal ENT inspection, TMs normal, pharynx normal, moist mucous membranes Neck Exam: normal inspection, non-tender, supple, full range of motion Respiratory Exam: normal breath sounds, lungs clear, No respiratory distress Cardiovascular Exam: regular rate/rhythm, normal heart sounds, normal peripheral pulses Gastrointestinal/Abdomen Exam: soft, normal bowel sounds, No tenderness, No mass Back Exam: normal inspection, normal range of motion, No CVA tenderness, No vertebral tenderness Extremity Exam: normal inspection, normal range of motion, pelvis stable Skin Exam: normal color, warm, dry, No rash Lymphatic Exam: No adenopathy Results - Labs Lab/Micro Results: Microbiology 12/16/21 15:20 Blood Culture Gram Stain - Final Blood Not Reportable Blood Culture - Final NO GROWTH 12/16/21 15:15 Blood Culture Gram Stain - Final Blood Not Reportable Blood Culture - Final NO GROWTH Assessment/Plan (1) Dyspnea Status: Acute Code(s): R06.00 - DYSPNEA, UNSPECIFIED (2) Pneumonia Status: Acute Qualifiers: Code(s): J18.9 - PNEUMONIA, UNSPECIFIED ORGANISM Hospital Summary - Hospital Course Hospital Course: Pt. admitted and started iv abx and oxygen supplementation, with more thorough evaluation, the following am the patient was doing very well and all labs looked good, it was felt the patient could be safely discharged to home. - Vitals & Intake/Output Vital Signs: Vital Signs Temperature 97.3 F 12/17/21 07:30 Pulse Rate 89 12/17/21 07:30 Respiratory Rate 18 12/17/21 07:30 Blood Pressure 136/68 12/17/21 07:30 O2 Sat by Pulse Oximetry 97 12/17/21 07:30 - Lab Result Diagrams: 12/17/21 02:49 12/17/21 02:49 Micro Results-Entire Visit: Microbiology 12/16/21 15:20 Blood Culture Gram Stain - Final Blood Not Reportable Blood Culture - Final NO GROWTH 12/16/21 15:15 Blood Culture Gram Stain - Final Blood Not Reportable Blood Culture - Final NO GROWTH - Procedures and Test Procedures and Tests throughout Hospitalization: Therapy Orders & Screens 12/16/21 19:00 Respiratory Therapy Assessment DAILY Comment: Diagnosis: DYSPNEA - Discharge Discharge Date: 12/17/21 Disposition: Home, Self-Care Condition: Stable Prescriptions: New Aspirin EC 81 mg [Ecotrin 81 mg] 81 mg PO DAILY tablet Continue Amlodipine Besylate 5 mg [Norvasc 5 mg] 5 mg PO DAILY Lisinopril 20 mg [Zestril 20 MG] 20 mg PO DAILY Aspirin 81 gm Chew [Baby Aspirin 81 mg Chew] 81 mg PO DAILY Levofloxacin [Levofloxacin 500 MG Tablet] 500 mg PO DAILY #5 tablet Instructions: Pneumonia, Adult (DC) Follow up with: JEFERSON LANCASTER NP [Primary Care Provider] - 12/24/21 9:45 am Forms: Discharge Instructions
== END 2021-12-17 09:05 | disposition home or self-care (01) ==
LOC: MED SURG 14:42
PROVIDERS: ADMIT Family Medicine; ATTEND Family Medicine
DX: R06.00 Dyspnea, unspecified (principal); J18.9 Pneumonia, unspecified organism; I10 Essential (primary) hypertension; Z79.899 Other long term (current) drug therapy; Z20.828 Contact with and (suspected) exposure to other viral communicable diseases
CPT/HCPCS: 0241U; 36415; 71045; 71260; 80053; 81015; 83880; 84145; 84484; 85027; 85379; 87040; 93306; 93971; 94640; 94760; G0378; J1650; J1956; J7609; A9270-GY

== ENCOUNTER 2022-06-16 05:46 | Day surgery (SDC) | payer MEDICARE, OTHER ==
[2022-06-16] MEDS ORDERED: Lactated Ringers 1,000 ML IV SCH (06:30)
[2022-06-16] MEDS ORDERED: DIPRIVAN 200 MG/20 ML IV ONE ×2 (07:52→08:11)
[2022-06-16] MEDS ORDERED: Xylocaine-Mpf 2% 5 Ml Vial ONE (07:52)
[2022-06-16 09:00] VITALS: BP 148/80; PULSE 80; O2SAT 100
--- NOTE | 2022-06-16 14:40 | OP ---
SURGERY DATE/TIME: 06/16/2022 0752 PREOPERATIVE DIAGNOSES: 1) Dyspepsia. 2) Abdominal pain. 3) Melanotic stools. POSTOPERATIVE DIAGNOSES: 1) Mild gastritis. 2) Hiatal hernia. 3) Small colon polyps. 4) Sigmoid diverticulosis. 5) Internal hemorrhoids. PROCEDURES: 1) Esophagogastroduodenoscopy. 2) Colonoscopy with cold forceps biopsy. SURGEON: Dr. Jansen. ANESTHESIA: Medications were given by the anesthesia department. HISTORY: The patient is a 77 year old white male who presented with complaints of nausea and he is apparently passing black stools. The patient is not currently on any nonsteroidal anti-inflammatory. He reported the medicine they gave him he could not take as it was not helping. The patient was felt to need to have endoscopic evaluation. He was appraised of the risks of the procedure including the risk of perforation, phlebitis, untoward reaction to medication, bleeding and missed lesions. The patient verbalized his understanding and desired to have the procedure performed. DESCRIPTION OF PROCEDURE: The patient was given the medications by the anesthesia department. He had continuous pulse oximetry, ECG monitoring, intermittent blood pressure monitoring during the examination. He was placed in the left lateral decubitus position. A bite block was placed and the flexible Olympus gastroscope was used to intubate the oropharynx. A view of the larynx was obtained and normal. The scope was easily introduced in the esophagus where there appeared to be a hiatal hernia present. No evidence of significant Charles's or varices were noted. The scope was passed into the stomach where normal gastric rugal folds were seen and these distended nicely with insufflation of air. The scope was passed along the greater curvature of the stomach to the antrum. The pylorus encountered and intubated. The duodenum inspected and found to be normal. The scope is withdrawn towards the stomach. Again retroflex view was obtained of the lesser curvature, fundus and cardia regions of the stomach and again we seen the hiatal hernia but no other mucosal lesions were noted. The scope was then removed from the patient. Next, a digital rectal examination was performed and revealed normal anal sphincter tone and no masses. The flexible Olympus pediatric colonoscope was used to intubate the rectum. A view of the colon was developed sequentially to the cecum. Upon insertion and withdrawal was noted some polyps which measured approximately 0.5 to 0.75 cm in size which were destroyed using passage of the cold forceps biopsy tool and multiple passes of the instrument to remove the polyps. There was also noted to be moderate sigmoid diverticulosis and internal hemorrhoids. No active bleeding was noted. No other mucosal lesions were encountered. The scope was removed from the patient who tolerated the procedure well and was sent back to OP recovery in good condition. The prep was noted to be fair to good.
== END 2022-06-16 09:15 | disposition home or self-care (01) ==
LOC: SDC 05:46
PROVIDERS: ATTEND Family Medicine
DX: K29.70 Gastritis, unspecified, without bleeding (principal); R10.13 Epigastric pain; R10.9 Unspecified abdominal pain; K92.1 Melena; D12.2 Benign neoplasm of ascending colon; D12.4 Benign neoplasm of descending colon; K44.9 Diaphragmatic hernia without obstruction or gangrene; K57.30 Diverticulosis of large intestine without perforation or abscess without bleeding; K64.8 Other hemorrhoids
CPT/HCPCS: 93005; 99100; J2704

== ENCOUNTER 2023-05-11 13:41 | Observation (INO) | payer MEDICARE, OTHER ==
--- NOTE | 2023-05-11 14:05 | ERPHSYRPT ---
- History of Present Illness Time Seen by Provider: 05/11/23 14:20 Source: patient Exam Limitations: no limitations Physician History: 78-year-old male presents to our ED as a referral from his primary care doctor for a blood transfusion. Outpatient labs were obtained. Hemoglobin observed to be 6.3. Patient instructed to come to our ED for a blood transfusion. Patient has no active symptoms at this time. Patient denies observing blood in stool or dark stools. No nausea no vomiting. No coffee-ground emesis. Patient denies any fatigue at this time. He has not observed fatigue during activity. Patient denies a history of the same. However in light of patient's profound anemia patient will likely require transfusion. Patient agrees to admission to [facility] for further evaluation and treatment of the anemia. Portions of this note were created with voice recognition technology. There may be grammatical, spelling, punctuation or sound alike errors Timing/Duration: today Severity: moderate Modifying Factors: Improves With: nothing Associated Symptoms: denies symptoms Allergies/Adverse Reactions: metronidazole Allergy (Intermediate, Verified 05/11/23 14:07) Difficulty Breathing ALSO HALLUCINATIONS azithromycin [From Zithromax] Allergy (Verified 05/11/23 14:07) cephalexin [From Keflex] Allergy (Verified 05/11/23 14:07) facial swelling, tongue buring Penicillins Allergy (Verified 05/11/23 14:07) Swelling of Tongue and Lips Home Medications: Amlodipine Besylate 5 mg [Norvasc 5 mg] 5 mg PO DAILY 01/12/17 [History] Lisinopril 20 mg [Zestril 20 MG] 20 mg PO DAILY 01/16/17 [History] Gabapentin [Neurontin ] 100 mg PO TID 06/12/22 [History] Hx Tetanus, Diphtheria Vaccination/Date Given: Yes Hx Influenza Vaccination/Date Given: No Hx Pneumococcal Vaccination/Date Given: Yes Travel Risk - Vaccine Status Have you recieved a Covid-19 vaccination: Yes Research [employer]: Moderna - Vaccination Dates Date of 2cond Vaccination (if applicable): 07/01/20 - Review of Systems Constitutional: No Symptoms, No Fever, No Chills Eyes: No Symptoms Ears, Nose, & Throat: No Symptoms Respiratory: No Symptoms, No Cough, No Dyspnea Cardiac: No Symptoms, No Chest Pain, No Edema, No Syncope Abdominal/Gastrointestinal: No Symptoms, No Abdominal Pain, No Nausea, No Vomiting, No Diarrhea Genitourinary Symptoms: No Symptoms, No Dysuria Musculoskeletal: No Symptoms, No Back Pain, No Neck Pain Skin: No Symptoms, No Rash Neurological: No Symptoms, No Dizziness, No Focal Weakness, No Sensory Changes Psychological: No Symptoms Endocrine: No Symptoms Hematologic/Lymphatic: No Symptoms Immunological/Allergic: No Symptoms All Other Systems: Reviewed and Negative - Past Medical History Pertinent Past Medical History: Yes Neurological History: No Pertinent History ENT History: No Pertinent History Cardiac History: Angina, Coronary Artery Disease, Hypertension Respiratory History: No Pertinent History Endocrine Medical History: Hypothyroidism Musculoskeletal History: No Pertinent History GI Medical History: GERD, Gallbladder Disease History: No Pertinent History Psycho-Social History: No Pertinent History Male Reproductive Disorders: No Pertinent History - Past Surgical History Past Surgical History: Yes Neuro Surgical History: No Pertinent History Cardiac: CABG Respiratory: No Pertinent History Gastrointestinal: Cholecystectomy Genitourinary: No Pertinent History Musculoskeletal: No Pertinent History Male Surgical History: No Pertinent History - Social History Smoking Status: Former smoker Exposure to second hand smoke: No Drug Use: none Patient Lives Alone: No - Nursing Vital Signs Nursing Vital Signs: Initial Vital Signs Temperature 97.6 F 05/11/23 14:10 Pulse Rate 94 H 05/11/23 14:10 Respiratory Rate 20 05/11/23 14:10 Blood Pressure 169/81 05/11/23 14:10 O2 Sat by Pulse Oximetry 99 05/11/23 14:10 Pain Scale Pain Intensity 0 - Physical Exam General Appearance: no apparent distress, alert Eye Exam: PERRL/EOMI, eyes nml inspection Ears, Nose, Throat Exam: normal ENT inspection, TMs normal, pharynx normal, moist mucous membranes Neck Exam: normal inspection, non-tender, supple, full range of motion Respiratory Exam: normal breath sounds, lungs clear, airway intact, No respiratory distress Cardiovascular Exam: regular rate/rhythm, normal heart sounds, normal peripheral pulses Gastrointestinal/Abdomen Exam: soft, normal bowel sounds, No tenderness, No mass Back Exam: normal inspection, normal range of motion, No CVA tenderness, No vertebral tenderness Extremity Exam: normal inspection, normal range of motion, pelvis stable Neurologic Exam: alert, oriented x 3, cooperative, normal mood/affect, nml cerebellar function, nml station & gait, sensation nml, No motor deficits Skin Exam: normal color, warm, dry, No rash Lymphatic Exam: No adenopathy SpO2 Interpretation: normal SpO2: 99 O2 Delivery: Room Air - Course Nursing assessment & vital signs reviewed: Yes EKG Interpreted by Me: RATE (100), Sinus Tach, NORMAL AXIS, NORMAL INTERVALS Ordered Tests: Active Orders 24 hr Category Date Time Status Bow Maker Machine Tender STAT Care 05/11/23 14:03 Active IV Insertion STAT Care 05/11/23 14:03 Active Pulse Oximetry (ED) STAT Care 05/11/23 14:03 Active CBC W DIFF Stat Lab 05/11/23 14:10 Completed CMP Stat Lab 05/11/23 14:10 Completed TROPONIN Q4H Lab 05/11/23 14:10 Received TROPONIN Q4H Lab 05/11/23 18:15 Ordered TROPONIN Q4H Lab 05/11/23 22:15 Ordered Transfer Order Routine Transfer 05/11/23 Ordered Lab/Rad Data: Laboratory Result Diagrams 05/11/23 14:10 05/11/23 14:10 Laboratory Results 05/11/23 05/11/23 05/11/23 Range/Units 14:10 14:10 14:10 WBC 5.8 (4.0-10.5) x10^3/uL RBC 3.01 L (4.1-5.6) x10^6/uL Hgb 6.2 L* (12.5-18.0) g/dL Hct 21.7 L (42-50) % MCV 72.1 L (78-100) fL MCH 20.6 L (26-32) pg MCHC 28.6 L (32-36) g/dL RDW 15.2 H (11.5-14.0) % Plt Count 241 (150-450) x10^3/uL MPV 10.8 (7.5-11.0) fL Gran % 77.7 H (36.0-66.0) % Immature Gran % (Auto) 0.2 (0.00-0.4) % Nucleat RBC Rel Count 0.0 (0.00-0.1) % Eos # (Auto) 0.17 (0-0.5) x10^3/uL Immature Gran # (Auto) 0.01 (0.00-0.03) x10^3u/L Absolute Lymphs (auto) 0.65 L (1.0-4.6) x10^3/uL Absolute Monos (auto) 0.45 (0.0-1.3) x10^3/uL Absolute Nucleated RBC 0.00 (0.00-0.01) x10^3u/L Lymphocytes % 11.2 L (24.0-44.0) % Monocytes % 7.7 (0.0-12.0) % Eosinophils % 2.9 (0.00-5.0) % Basophils % 0.3 (0.0-0.4) % Absolute Granulocytes 4.52 (1.4-6.9) x10^3/uL Basophils # 0.02 (0-0.4) x10^3/uL Sodium 133 L (137-145) mmol/L Potassium 4.8 (3.5-5.1) mmol/L Chloride 101 (98-107) mmol/L Carbon Dioxide 22 (22-30) mmol/L Anion Gap 14.2 (5-15) MEQ/L BUN 20 (9-20) mg/dL Creatinine 0.98 (0.66-1.25) mg/dL Estimated GFR 79.9 ML/MIN Glucose 117 H (74-106) mg/dL Calcium 9.3 (8.4-10.2) mg/dL Total Bilirubin 0.50 (0.2-1.3) mg/dL AST 47 (17-59) U/L ALT 37 (0-50) U/L Alkaline Phosphatase 121 (38-126) U/L Serum Total Protein 7.7 (6.3-8.2) g/dL Albumin 4.5 (3.5-5.0) g/dL ABO Group Pending Rh Factor Pending Antibody Screen Pending Crossmatch Pending - Progress Progress: improved Progress Note: 78-year-old male presents to our ED as a referral from his primary care doctor for admission due to hemoglobin of 6.2. Patient has no active complaints during my physical exam. Hemoglobin 6.2 on our laboratory workup. Patient will require blood transfusion Case discussed with Dr. Khan hospitalist who accepts admission at 2:40 PM. Patient reports his last colonoscopy was about 6 to 8 months [address] performed [address] Dr[address] Jansen. No significant findings per patient Portions of this note were created with voice recognition technology. There may be grammatical, spelling, punctuation or sound alike errors Complexity of problem addressed is moderate acute complicated Critical care time is 1 hour. Critical hemoglobin of 6.2 observed. Patient requires blood transfusion. Immediate management indicated to prevent further deterioration Complex of data reviewed and analyzed is extensive. Test ordered test reviewed. Management discussed with hospitalist who accepts admission to observation. Risk of complication and or risk of morbidity/mortality of patient management is high. He requires hospitalization for further evaluation and treatment. Patient will be admitted. Vital stable. Time spent admit patient is approximately 20 minutes. Plan of care established for shared decision making. Portions of this note were created with voice recognition technology. There may be grammatical, spelling, punctuation or sound alike error 05/11/23 14:52 Counseled pt/family regarding: lab results, diagnosis - Departure Departure Disposition: Observation Clinical Impression: Microcytic anemia Condition: Stable Critical Care Time: Yes Critical Care Time(excluding separately billable procedures): Critical 30-74 mins Referrals: JEFERSON LANCASTER NP [Primary Care Provider] - Follow up/PCP as directed
[2023-05-11 14:23] LABS: Absolute Neutrophil Ct (ANC) 4.52 x10^3/uL (1.4-6.9); BASOPHIL % 0.3 % (0.0-0.4); Basophil (Absolute #) 0.02 x10^3/uL (0-0.4); Eosinophil % 2.9 % (0.00-5.0); Eosinophil (Absolute #) 0.17 x10^3/uL (0-0.5); Hematocrit 21.7 % (42-50); IMMATURE GRAN # 0.01 x10^3u/L (0.00-0.03); IMMATURE GRAN % 0.2 % (0.00-0.4); Lymphocyte (Absolute #) 0.65 x10^3/uL (1.0-4.6); Lymphocytes % 11.2 % (24.0-44.0); Mean Cell Volume 72.1 fL (78-100); Mean Corpuscular Hemoglobin 20.6 pg (26-32); Mean Corpuscular Hgb Concent. 28.6 g/dL (32-36); Mean Platelet Volume 10.8 fL (7.5-11.0); Monocyte (Absolute #) 0.45 x10^3/uL (0.0-1.3); Monocytes % 7.7 % (0.0-12.0); Neutrophil % 77.7 % (36.0-66.0); Platelet Count 241 x10^3/uL (150-450); Red Blood Count 3.01 x10^6/uL (4.1-5.6); Red Cell Distribution Width 15.2 % (11.5-14.0); White Blood Count 5.8 x10^3/uL (4.0-10.5)
[2023-05-11 14:29] LABS: Hemoglobin 6.2 g/dL (12.5-18.0)
[2023-05-11 14:42] LABS: ALBUMIN 4.5 g/dL (3.5-5.0); ANION GAP 14.2 MEQ/L (5-15); BILIRUBIN,TOTAL 0.5 mg/dL (0.2-1.3); Calcium 9.3 mg/dL (8.4-10.2); Creatinine 1 0.98 mg/dL (0.66-1.25); EST GLOMERULAR FILTRATION RATE 79.9 ML/MIN; Potassium 4.8 mmol/L (3.5-5.1); Total Protein 7.7 g/dL (6.3-8.2)
[2023-05-11 15:51] LABS: ABO TYPING O; Antibody Screen NEGATIVE (NEGATIVE); RH TYPING POSITIVE
[2023-05-11 15:52] LABS: CROSS MATCH (PRBC) COMPATIBLE (COMPATIBLE)
--- NOTE | 2023-05-11 16:04 | PCM.HP ---
History of Present Illness - Chief Complaint Chief Complaint: Microcytic, hypochromic anemia Date: 05/11/23 History of Present Illness: is a 78 year old male with a pmhx of CAD (with bypass) and HTN who presented to ED 05/11/23 under the advisement of his PCP for a blood transfusion. Patient reports he was in his usual state of health when he had routine lab work done with his PCP and his hemoglobin was noted to be at 6.3. He denies any associated symptoms such as shortness of breath, fatigue, pica, dizziness, palpitations. He also denies any iliana bleeding, hematemesis, or hematochezia. He does report weakness to his BLE as well as muscle cramping and pruitis all over with onset of about two years ago. Denies fever,cough, sob, cp, abdominal pain, PIZANO, N/V/D. In ED patient hypertensive but otherwise vitals unremarkable. Lab findings remarkable for microcytic, hypochromic anemia with hemoglobin of 6.2 and mild hyponatremia with sodium at 133. - Review of Systems Constitutional: Weakness (BLE) Eyes: No Symptoms Ears, Nose, & Throat: No Symptoms Respiratory: No Symptoms Cardiac: No Symptoms Abdominal/Gastrointestinal: No Symptoms Genitourinary Symptoms: No Symptoms Musculoskeletal: No Symptoms Skin: No Symptoms, Pruritis, Rash Neurological: No Symptoms Psychological: No Symptoms Endocrine: No Symptoms Hematologic/Lymphatic: Anemia Medications & Allergies Home Medications: Home Medication List Amlodipine Besylate 5 mg [Norvasc 5 mg] 5 mg PO DAILY 01/12/17 [History Confirmed 05/11/23] Lisinopril 20 mg [Zestril 20 MG] 20 mg PO DAILY 01/16/17 [History Confirmed 05/11/23] Gabapentin [Neurontin ] 100 mg PO TID 06/12/22 [History Confirmed 05/11/23] Loratadine 10 mg [Claritin 10 mg] 10 mg PO DAILY 05/11/23 [History Confirmed 05/11/23] Allergies/Adverse Reactions: Allergies Allergy/AdvReac Type Severity Reaction Status Date / Time metronidazole Allergy Intermediate Difficulty Verified 05/11/23 15:49 Breathing azithromycin [From Zithromax] Allergy Verified 05/11/23 15:49 cephalexin [From Keflex] Allergy facial Verified 05/11/23 15:49 swelling, tongue buring Penicillins Allergy Swelling Verified 05/11/23 15:49 of Tongue and Lips - Past Medical History Past Medical History: Yes Neurological History: No Pertinent History ENT History: No Pertinent History Cardiac History: Angina, Coronary Artery Disease, Hypertension Respiratory History: No Pertinent History Endocrine Medical History: Hypothyroidism Musculoskelatal History: No Pertinent History GI Medical History: GERD, Gallbladder Disease History: No Pertinent History Pyscho-Social History: No Pertinent History Male Reproductive Disorders: No Pertinent History - Past Surgical History Past Surgical History: Yes Neuro Surgical History: No Pertinent History Cardiac History: CABG Respiratory Surgery: No Pertinent History GI Surgical History: Cholecystectomy Genitourinary Surgical Hx: No Pertinent History Musculskeletal Surgical Hx: No Pertinent History Male Surgical History: No Pertinent History - Social History Smoking Status: Former smoker Exposure to second hand smoke: No Alcohol: None Drug Use: none - Physical Exam Vital Signs: Vital Signs - 24 hr Temp Pulse Resp BP BP Pulse Ox 05/11/23 15:00 92 H 24 162/80 96 05/11/23 14:57 99 05/11/23 14:30 89 24 165/80 97 05/11/23 14:13 89 18 169/81 98 05/11/23 14:10 97.6 F 94 H 20 169/81 99 General Appearance: no apparent distress Neurologic Exam: alert, oriented x 3, cooperative Eye Exam: PERRL/EOMI Ears, Nose, Throat Exam: normal ENT inspection Neck Exam: normal inspection Respiratory Exam: normal breath sounds, lungs clear Cardiovascular Exam: tachycardia Rectal Exam: deferred Back Exam: normal inspection Extremity Exam: normal inspection Skin Exam: dry, pale Results - Labs Lab/Micro Results: Lab Results-Last 24 Hours 05/11/23 05/11/23 05/11/23 Range/Units 14:10 14:10 14:10 WBC 5.8 (4.0-10.5) x10^3/uL RBC 3.01 L (4.1-5.6) x10^6/uL Hgb 6.2 L* (12.5-18.0) g/dL Hct 21.7 L (42-50) % MCV 72.1 L (78-100) fL MCH 20.6 L (26-32) pg MCHC 28.6 L (32-36) g/dL RDW 15.2 H (11.5-14.0) % Plt Count 241 (150-450) x10^3/uL MPV 10.8 (7.5-11.0) fL Gran % 77.7 H (36.0-66.0) % Immature Gran % (Auto) 0.2 (0.00-0.4) % Nucleat RBC Rel Count 0.0 (0.00-0.1) % Eos # (Auto) 0.17 (0-0.5) x10^3/uL Immature Gran # (Auto) 0.01 (0.00-0.03) x10^3u/L Absolute Lymphs (auto) 0.65 L (1.0-4.6) x10^3/uL Absolute Monos (auto) 0.45 (0.0-1.3) x10^3/uL Absolute Nucleated RBC 0.00 (0.00-0.01) x10^3u/L Lymphocytes % 11.2 L (24.0-44.0) % Monocytes % 7.7 (0.0-12.0) % Eosinophils % 2.9 (0.00-5.0) % Basophils % 0.3 (0.0-0.4) % Absolute Granulocytes 4.52 (1.4-6.9) x10^3/uL Basophils # 0.02 (0-0.4) x10^3/uL Sodium 133 L (137-145) mmol/L Potassium 4.8 (3.5-5.1) mmol/L Chloride 101 (98-107) mmol/L Carbon Dioxide 22 (22-30) mmol/L Anion Gap 14.2 (5-15) MEQ/L BUN 20 (9-20) mg/dL Creatinine 0.98 (0.66-1.25) mg/dL Estimated GFR 79.9 ML/MIN Glucose 117 H (74-106) mg/dL Calcium 9.3 (8.4-10.2) mg/dL Total Bilirubin 0.50 (0.2-1.3) mg/dL AST 47 (17-59) U/L ALT 37 (0-50) U/L Alkaline Phosphatase 121 (38-126) U/L Troponin I < 0.012 (0.000-0.034) ng/mL Serum Total Protein 7.7 (6.3-8.2) g/dL Albumin 4.5 (3.5-5.0) g/dL ABO Group Rh Factor Antibody Screen (NEGATIVE) Crossmatch (COMPATIBLE) 05/11/23 05/11/23 Range/Units 14:10 14:10 WBC (4.0-10.5) x10^3/uL RBC (4.1-5.6) x10^6/uL Hgb (12.5-18.0) g/dL Hct (42-50) % MCV (78-100) fL MCH (26-32) pg MCHC (32-36) g/dL RDW (11.5-14.0) % Plt Count (150-450) x10^3/uL MPV (7.5-11.0) fL Gran % (36.0-66.0) % Immature Gran % (Auto) (0.00-0.4) % Nucleat RBC Rel Count (0.00-0.1) % Eos # (Auto) (0-0.5) x10^3/uL Immature Gran # (Auto) (0.00-0.03) x10^3u/L Absolute Lymphs (auto) (1.0-4.6) x10^3/uL Absolute Monos (auto) (0.0-1.3) x10^3/uL Absolute Nucleated RBC (0.00-0.01) x10^3u/L Lymphocytes % (24.0-44.0) % Monocytes % (0.0-12.0) % Eosinophils % (0.00-5.0) % Basophils % (0.0-0.4) % Absolute Granulocytes (1.4-6.9) x10^3/uL Basophils # (0-0.4) x10^3/uL Sodium (137-145) mmol/L Potassium (3.5-5.1) mmol/L Chloride (98-107) mmol/L Carbon Dioxide (22-30) mmol/L Anion Gap (5-15) MEQ/L BUN (9-20) mg/dL Creatinine (0.66-1.25) mg/dL Estimated GFR ML/MIN Glucose (74-106) mg/dL Calcium (8.4-10.2) mg/dL Total Bilirubin (0.2-1.3) mg/dL AST (17-59) U/L ALT (0-50) U/L Alkaline Phosphatase (38-126) U/L Troponin I (0.000-0.034) ng/mL Serum Total Protein (6.3-8.2) g/dL Albumin (3.5-5.0) g/dL ABO Group O Rh Factor POSITIVE Antibody Screen NEGATIVE (NEGATIVE) Crossmatch COMPATIBLE COMPATIBLE (COMPATIBLE) Assessment/Plan (1) Microcytic hypochromic anemia Current Visit: Yes Status: Acute Assessment & Plan: -Recent colonoscop/EGD with Dr. Jansen, 06/16/22, showing mild gastritis, hiatial hernia, small polyps, sigmoid diverticulosis, and internal hemorrhoids -Occult stools -Iron profile, b12/fol, ferritin, retic, hapto, LDH -Consider heme consult Code(s): D50.9 - IRON DEFICIENCY ANEMIA, UNSPECIFIED (2) Hypertension Current Visit: Yes Status: Acute Assessment & Plan: -continue home meds Code(s): I10 - ESSENTIAL (PRIMARY) HYPERTENSION (3) CAD (coronary artery disease) Current Visit: Yes Status: Acute Assessment & Plan: -noted, continue appropriate meds Code(s): I25.10 - ATHSCL HEART DISEASE OF [place] CORONARY ARTERY W/O ANG PCTRS (4) Hyponatremia Current Visit: No Status: Chronic Assessment & Plan: -Mild, gentle hydration, continue to monitor Code(s): E87.1 - HYPO-OSMOLALITY AND HYPONATREMIA
[2023-05-11] MEDS ORDERED: TYLENOL 325 MG PO PRN (17:06)
[2023-05-11] MEDS ORDERED: Sodium Chloride 0.9% 1000 ML 1,000 ML ONE (17:29)
[2023-05-11] MEDS: Sodium Chloride 0.9% 1000 ML 1,000 ML IV SCH (17:33)
[2023-05-11 18:01] LABS: Iron 25 ug/dL (49-181); Iron Saturation 5 % (20-39); TIBC 505 ug/dL (261-497)
[2023-05-11 18:04] LABS: RETICULOCYTE % 0.9 % (0.6-2.6)
[2023-05-11 18:42] LABS: Ferritin 6.53 ng/mL (17.9-464); MAGNESIUM 2.1 mg/dL (1.6-2.3)
[2023-05-11] MEDS: Neurontin PO SCH (21:49)
[2023-05-12 00:19] LABS: Hematocrit 27.9 % (42-50); Hemoglobin 8.4 g/dL (12.5-18.0)
[2023-05-12] MEDS: Sodium Chloride 0.9% 1000 ML 1,000 ML IV SCH (00:27)
[2023-05-12 04:58] LABS: Absolute Neutrophil Ct (ANC) 5.82 x10^3/uL (1.4-6.9); BASOPHIL % 0.1 % (0.0-0.4); Basophil (Absolute #) 0.01 x10^3/uL (0-0.4); Eosinophil % 0.6 % (0.00-5.0); Eosinophil (Absolute #) 0.04 x10^3/uL (0-0.5); Hematocrit 26.8 % (42-50); Hemoglobin 8.1 g/dL (12.5-18.0); IMMATURE GRAN # 0.02 x10^3u/L (0.00-0.03); IMMATURE GRAN % 0.3 % (0.00-0.4); Lymphocyte (Absolute #) 0.71 x10^3/uL (1.0-4.6); Lymphocytes % 9.9 % (24.0-44.0); Mean Cell Volume 74.9 fL (78-100); Mean Corpuscular Hemoglobin 22.6 pg (26-32); Mean Corpuscular Hgb Concent. 30.2 g/dL (32-36); Mean Platelet Volume 11.3 fL (7.5-11.0); Monocyte (Absolute #) 0.59 x10^3/uL (0.0-1.3); Monocytes % 8.2 % (0.0-12.0); Neutrophil % 80.9 % (36.0-66.0); Platelet Count 248 x10^3/uL (150-450); Red Blood Count 3.58 x10^6/uL (4.1-5.6); Red Cell Distribution Width 17.8 % (11.5-14.0); White Blood Count 7.2 x10^3/uL (4.0-10.5)
--- NOTE | 2023-05-12 05:06 | PCM.NOTE ---
Date and Time: 05/12/23 8138 Subjective Assessment: is a 78 year old male with a pmhx of CAD (with bypass) and HTN who presented to ED 05/11/23 under the advisement of his PCP for a blood transfusion. Patient reports he was in his usual state of health when he had routine lab work done with his PCP and his hemoglobin was noted to be at 6.3. He denies any associated symptoms such as shortness of breath, fatigue, pica, dizziness, palpitations. He also denies any iliana bleeding, hematemesis, or hematochezia. He does report weakness to his BLE as well as muscle cramping and pruitis all over with onset of about two years ago. Denies fever,cough, sob, cp, abdominal pain, PIZANO, N/V/D. In ED patient hypertensive but otherwise vitals unremarkable. Lab findings remarkable for microcytic, hypochromic anemia with hemoglobin of 6.2 and mild hyponatremia with sodium at 133. Patient received 2 units LPRBC. Advised follow up with hematology/pcp on discharge. OBJECTIVE DATA Vital Signs: Vital Signs - 24 hr Temp Pulse Resp BP BP Pulse Ox 05/12/23 04:00 98.0 F 82 18 157/74 97 05/12/23 00:00 98.2 F 85 16 155/75 98 05/11/23 20:00 98.1 F 92 H 18 150/71 98 05/11/23 15:49 98.6 F 104 H 20 189/88 98 05/11/23 15:47 104 H 05/11/23 15:46 97.6 F 92 H 24 169/81 96 05/11/23 15:00 92 H 24 162/80 96 05/11/23 14:57 99 05/11/23 14:30 89 24 165/80 97 05/11/23 14:13 89 18 169/81 98 05/11/23 14:10 97.6 F 94 H 20 169/81 99 Pain Assessment - Last Documented Pain Intensity 0 Intake and Output: Intake & Output 05/09/23 05/10/23 05/11/23 05/12/23 11:59 11:59 11:59 11:59 Intake Total 158 Balance 158 Weight 75.2 kg Lab Results: Lab Results-Last 24 Hours 05/11/23 05/11/23 05/11/23 Range/Units 00:16 00:16 14:10 WBC 5.8 (4.0-10.5) x10^3/uL RBC 3.01 L (4.1-5.6) x10^6/uL Hgb 8.4 L 6.2 L* (12.5-18.0) g/dL Hct 27.9 L 21.7 L (42-50) % MCV 72.1 L (78-100) fL MCH 20.6 L (26-32) pg MCHC 28.6 L (32-36) g/dL RDW 15.2 H (11.5-14.0) % Plt Count 241 (150-450) x10^3/uL MPV 10.8 (7.5-11.0) fL Gran % 77.7 H (36.0-66.0) % Immature Gran % (Auto) 0.2 (0.00-0.4) % Reticulocyte % (Auto) (0.6-2.6) % Nucleat RBC Rel Count 0.0 (0.00-0.1) % Eos # (Auto) 0.17 (0-0.5) x10^3/uL Immature Gran # (Auto) 0.01 (0.00-0.03) x10^3u/L Absolute Lymphs (auto) 0.65 L (1.0-4.6) x10^3/uL Absolute Monos (auto) 0.45 (0.0-1.3) x10^3/uL Absolute Nucleated RBC 0.00 (0.00-0.01) x10^3u/L Lymphocytes % 11.2 L (24.0-44.0) % Monocytes % 7.7 (0.0-12.0) % Eosinophils % 2.9 (0.00-5.0) % Basophils % 0.3 (0.0-0.4) % Absolute Granulocytes 4.52 (1.4-6.9) x10^3/uL Basophils # 0.02 (0-0.4) x10^3/uL Retic Hgb Content (28-38) pg Sodium (137-145) mmol/L Potassium (3.5-5.1) mmol/L Chloride (98-107) mmol/L Carbon Dioxide (22-30) mmol/L Anion Gap (5-15) MEQ/L BUN (9-20) mg/dL Creatinine (0.66-1.25) mg/dL Estimated GFR ML/MIN Glucose (74-106) mg/dL Calcium (8.4-10.2) mg/dL Magnesium (1.6-2.3) mg/dL Iron (49-181) ug/dL TIBC (261-497) ug/dL Iron Saturation (20-39) % Ferritin (17.9-464) ng/mL Total Bilirubin (0.2-1.3) mg/dL AST (17-59) U/L ALT (0-50) U/L Alkaline Phosphatase (38-126) U/L Lactate Dehydrogenase (120-246) U/L Troponin I 0.647 H* (0.000-0.034) ng/mL Serum Total Protein (6.3-8.2) g/dL Albumin (3.5-5.0) g/dL Vitamin B12 (239-931) pg/mL ABO Group Rh Factor Antibody Screen (NEGATIVE) Crossmatch (COMPATIBLE) 05/11/23 05/11/23 05/11/23 Range/Units 14:10 14:10 14:10 WBC (4.0-10.5) x10^3/uL RBC (4.1-5.6) x10^6/uL Hgb (12.5-18.0) g/dL Hct (42-50) % MCV (78-100) fL MCH (26-32) pg MCHC (32-36) g/dL RDW (11.5-14.0) % Plt Count (150-450) x10^3/uL MPV (7.5-11.0) fL Gran % (36.0-66.0) % Immature Gran % (Auto) (0.00-0.4) % Reticulocyte % (Auto) (0.6-2.6) % Nucleat RBC Rel Count (0.00-0.1) % Eos # (Auto) (0-0.5) x10^3/uL Immature Gran # (Auto) (0.00-0.03) x10^3u/L Absolute Lymphs (auto) (1.0-4.6) x10^3/uL Absolute Monos (auto) (0.0-1.3) x10^3/uL Absolute Nucleated RBC (0.00-0.01) x10^3u/L Lymphocytes % (24.0-44.0) % Monocytes % (0.0-12.0) % Eosinophils % (0.00-5.0) % Basophils % (0.0-0.4) % Absolute Granulocytes (1.4-6.9) x10^3/uL Basophils # (0-0.4) x10^3/uL Retic Hgb Content (28-38) pg Sodium 133 L (137-145) mmol/L Potassium 4.8 (3.5-5.1) mmol/L Chloride 101 (98-107) mmol/L Carbon Dioxide 22 (22-30) mmol/L Anion Gap 14.2 (5-15) MEQ/L BUN 20 (9-20) mg/dL Creatinine 0.98 (0.66-1.25) mg/dL Estimated GFR 79.9 ML/MIN Glucose 117 H (74-106) mg/dL Calcium 9.3 (8.4-10.2) mg/dL Magnesium (1.6-2.3) mg/dL Iron (49-181) ug/dL TIBC (261-497) ug/dL Iron Saturation (20-39) % Ferritin (17.9-464) ng/mL Total Bilirubin 0.50 (0.2-1.3) mg/dL AST 47 (17-59) U/L ALT 37 (0-50) U/L Alkaline Phosphatase 121 (38-126) U/L Lactate Dehydrogenase (120-246) U/L Troponin I < 0.012 (0.000-0.034) ng/mL Serum Total Protein 7.7 (6.3-8.2) g/dL Albumin 4.5 (3.5-5.0) g/dL Vitamin B12 (239-931) pg/mL ABO Group O Rh Factor POSITIVE Antibody Screen NEGATIVE (NEGATIVE) Crossmatch COMPATIBLE (COMPATIBLE) 05/11/23 05/11/23 05/11/23 Range/Units 14:10 14:10 14:10 WBC (4.0-10.5) x10^3/uL RBC (4.1-5.6) x10^6/uL Hgb (12.5-18.0) g/dL Hct (42-50) % MCV (78-100) fL MCH (26-32) pg MCHC (32-36) g/dL RDW (11.5-14.0) % Plt Count (150-450) x10^3/uL MPV (7.5-11.0) fL Gran % (36.0-66.0) % Immature Gran % (Auto) (0.00-0.4) % Reticulocyte % (Auto) (0.6-2.6) % Nucleat RBC Rel Count (0.00-0.1) % Eos # (Auto) (0-0.5) x10^3/uL Immature Gran # (Auto) (0.00-0.03) x10^3u/L Absolute Lymphs (auto) (1.0-4.6) x10^3/uL Absolute Monos (auto) (0.0-1.3) x10^3/uL Absolute Nucleated RBC (0.00-0.01) x10^3u/L Lymphocytes % (24.0-44.0) % Monocytes % (0.0-12.0) % Eosinophils % (0.00-5.0) % Basophils % (0.0-0.4) % Absolute Granulocytes (1.4-6.9) x10^3/uL Basophils # (0-0.4) x10^3/uL Retic Hgb Content (28-38) pg Sodium (137-145) mmol/L Potassium (3.5-5.1) mmol/L Chloride (98-107) mmol/L Carbon Dioxide (22-30) mmol/L Anion Gap (5-15) MEQ/L BUN (9-20) mg/dL Creatinine (0.66-1.25) mg/dL Estimated GFR ML/MIN Glucose (74-106) mg/dL Calcium (8.4-10.2) mg/dL Magnesium 2.1 (1.6-2.3) mg/dL Iron 25 L (49-181) ug/dL TIBC 505 H (261-497) ug/dL Iron Saturation 5 L (20-39) % Ferritin 6.53 L (17.9-464) ng/mL Total Bilirubin (0.2-1.3) mg/dL AST (17-59) U/L ALT (0-50) U/L Alkaline Phosphatase (38-126) U/L Lactate Dehydrogenase 230 (120-246) U/L Troponin I (0.000-0.034) ng/mL Serum Total Protein (6.3-8.2) g/dL Albumin (3.5-5.0) g/dL Vitamin B12 293 (239-931) pg/mL ABO Group Rh Factor Antibody Screen (NEGATIVE) Crossmatch COMPATIBLE (COMPATIBLE) 05/11/23 05/11/23 Range/Units 17:55 17:55 WBC (4.0-10.5) x10^3/uL RBC (4.1-5.6) x10^6/uL Hgb (12.5-18.0) g/dL Hct (42-50) % MCV (78-100) fL MCH (26-32) pg MCHC (32-36) g/dL RDW (11.5-14.0) % Plt Count (150-450) x10^3/uL MPV (7.5-11.0) fL Gran % (36.0-66.0) % Immature Gran % (Auto) (0.00-0.4) % Reticulocyte % (Auto) 0.9 (0.6-2.6) % Nucleat RBC Rel Count (0.00-0.1) % Eos # (Auto) (0-0.5) x10^3/uL Immature Gran # (Auto) (0.00-0.03) x10^3u/L Absolute Lymphs (auto) (1.0-4.6) x10^3/uL Absolute Monos (auto) (0.0-1.3) x10^3/uL Absolute Nucleated RBC (0.00-0.01) x10^3u/L Lymphocytes % (24.0-44.0) % Monocytes % (0.0-12.0) % Eosinophils % (0.00-5.0) % Basophils % (0.0-0.4) % Absolute Granulocytes (1.4-6.9) x10^3/uL Basophils # (0-0.4) x10^3/uL Retic Hgb Content 19.0 L (28-38) pg Sodium (137-145) mmol/L Potassium (3.5-5.1) mmol/L Chloride (98-107) mmol/L Carbon Dioxide (22-30) mmol/L Anion Gap (5-15) MEQ/L BUN (9-20) mg/dL Creatinine (0.66-1.25) mg/dL Estimated GFR ML/MIN Glucose (74-106) mg/dL Calcium (8.4-10.2) mg/dL Magnesium (1.6-2.3) mg/dL Iron (49-181) ug/dL TIBC (261-497) ug/dL Iron Saturation (20-39) % Ferritin (17.9-464) ng/mL Total Bilirubin (0.2-1.3) mg/dL AST (17-59) U/L ALT (0-50) U/L Alkaline Phosphatase (38-126) U/L Lactate Dehydrogenase (120-246) U/L Troponin I 0.122 H* (0.000-0.034) ng/mL Serum Total Protein (6.3-8.2) g/dL Albumin (3.5-5.0) g/dL Vitamin B12 (239-931) pg/mL ABO Group Rh Factor Antibody Screen (NEGATIVE) Crossmatch (COMPATIBLE) Assessment/Plan (1) Microcytic hypochromic anemia Current Visit: Yes Status: Acute Assessment & Plan: -Recent colonoscop/EGD with Dr. Jansen, 06/16/22, showing mild gastritis, hiatial hernia, small polyps, sigmoid diverticulosis, and internal hemorrhoids -Occult stools -Iron profile, b12/fol, ferritin, retic, hapto, LDH -Consider heme consult -transfuse 2 units LPRBC -monitor cbc daily, replace if hgb < 7 Code(s): D50.9 - IRON DEFICIENCY ANEMIA, UNSPECIFIED (2) Hypertension Current Visit: Yes Status: Acute Assessment & Plan: -continue home meds Code(s): I10 - ESSENTIAL (PRIMARY) HYPERTENSION (3) CAD (coronary artery disease) Current Visit: Yes Status: Acute Assessment & Plan: -noted, continue appropriate meds Code(s): I25.10 - ATHSCL HEART DISEASE OF [place] CORONARY ARTERY W/O ANG PCTRS (4) Hyponatremia Current Visit: No Status: Chronic Assessment & Plan: -Mild, gentle hydration, continue to monitor Code(s): D50.9 - IRON DEFICIENCY ANEMIA, UNSPECIFIED (2) Hypertension Current Visit: Yes Status: Acute Code(s): I10 - ESSENTIAL (PRIMARY) HYPERTENSION (3) CAD (coronary artery disease) Current Visit: Yes Status: Acute Code(s): I25.10 - ATHSCL HEART DISEASE OF [place] CORONARY ARTERY W/O ANG PCTRS (4) Hyponatremia Current Visit: No Status: Chronic Code(s): E87.1 - HYPO-OSMOLALITY AND HYPONATREMIA
[2023-05-12 05:58] LABS: ALBUMIN 4.4 g/dL (3.5-5.0); ANION GAP 14.4 MEQ/L (5-15); BILIRUBIN,TOTAL 1.1 mg/dL (0.2-1.3); Calcium 9.4 mg/dL (8.4-10.2); Creatinine 1 0.81 mg/dL (0.66-1.25); EST GLOMERULAR FILTRATION RATE 91.4 ML/MIN; Potassium 4.4 mmol/L (3.5-5.1); Total Protein 7.8 g/dL (6.3-8.2)
[2023-05-12 07:24] LABS: IFOB TEST RESULTS NEGATIVE (NEGATIVE)
[2023-05-12] MEDS: Neurontin PO SCH (09:14)
[2023-05-12] MEDS ORDERED: CLARITIN 10 MG PO SCH (10:00)
[2023-05-12] MEDS ORDERED: INJECTAFER 750 MG IV ONE (10:00)
[2023-05-12] MEDS ORDERED: NORVASC 5 MG PO SCH (10:00)
[2023-05-12] MEDS ORDERED: Protonix 40MG Tablet PO SCH (10:00)
[2023-05-12] MEDS ORDERED: Zestril 20 MG PO SCH (10:00)
[2023-05-12] MEDS ORDERED: INJECTAFER 750 MG 750 MG in Sodium Chloride 0.9% 250 ML 250 ML IV ONE (11:00)
[2023-05-12 11:04] VITALS: BP 159/76; PULSE 78; RESP 18; TEMP 98.3; O2SAT 97
--- NOTE | 2023-05-12 12:18 | PCM.DS ---
Discharge Summary Date of Admission: 05/11/23 15:46 Date of Discharge: 05/12/23 Admitting Physician: SPENCER GARCIA MD Primary Care Provider: JEFERSON LANCASTER Allergies Allergies metronidazole Allergy (Intermediate, Verified 05/11/23 15:49) Difficulty Breathing ALSO HALLUCINATIONS azithromycin [From Zithromax] Allergy (Verified 05/11/23 15:49) cephalexin [From Keflex] Allergy (Verified 05/11/23 15:49) facial swelling, tongue buring Penicillins Allergy (Verified 05/11/23 15:49) Swelling of Tongue and Lips Hospital Summary - Hospital Course Hospital Course: is a 78 year old male with a pmhx of CAD (with bypass) and HTN who presented to ED 05/11/23 under the advisement of his PCP for a blood transfusion. Patient reports he was in his usual state of health when he had routine lab work done with his PCP and his hemoglobin was noted to be at 6.3. He denies any associated symptoms such as shortness of breath, fatigue, pica, dizziness, pal pitations. He also denies any iliana bleeding, hematemesis, or hematochezia. He does report weakness to his BLE as well as muscle cramping and pruitis all over with onset of about two years ago. Denies fever,cough, sob, cp, abdominal pain, PIZANO, N/V/D. In ED patient hypertensive but otherwise vitals unremarkable. Lab findings remarkable for microcytic, hypochromic anemia with hemoglobin of 6.2 and mild hyponatremia with sodium at 133. Patient received 2 units LPRBC. Labs stable, occult stools negative. Iron saturation at 5%, patient received injectafer 750mg. Advised follow up with hematology (Franco) for anemia workup/ IV iron/pcp on discharge for recheck blood counts. Discharge Note New Diagnosis:Iron deficiency anemia New Medications: protonix/ ferrous sulfate Follow Up: PCP/ Franco Latest Assessment & Plan (1) Microcytic hypochromic anemia Current Visit: Yes Status: Acute Assessment & Plan: -Recent colonoscop/EGD with Dr. Jansen, 06/16/22, showing mild gastritis, hiatial hernia, small polyps, sigmoid diverticulosis, and internal hemorrhoids -Occult stools -Iron profile, b12/fol, ferritin, retic, hapto, LDH -Consider heme consult Code(s): D50.9 - IRON DEFICIENCY ANEMIA, UNSPECIFIED (2) Hypertension Current Visit: Yes Status: Acute Assessment & Plan: -continue home meds Code(s): I10 - ESSENTIAL (PRIMARY) HYPERTENSION (3) CAD (coronary artery disease) Current Visit: Yes Status: Acute Assessment & Plan: -noted, continue appropriate meds Code(s): I25.10 - ATHSCL HEART DISEASE OF [place] CORONARY ARTERY W/O ANG PCTRS (4) Hyponatremia Current Visit: No Status: Chronic Assessment & Plan: -Mild, gentle hydration, continue to monitor Code(s): E87.1 - HYPO-OSMOLALITY AND HYPONATREMIA I spent 35 minutes [id number] with the patient on the day of discharge performing discharge exam, discussing hospital stay and discharge instructions with patient and caregivers, preparation of discharge records, prescriptions & referral forms and addressing any questions/concerns the patient had as documented above. - Vitals & Intake/Output Vital Signs: Vital Signs Temperature 98.3 F 05/12/23 11:04 Pulse Rate 78 05/12/23 11:04 Respiratory Rate 18 05/12/23 11:04 Blood Pressure 159/76 05/12/23 11:04 O2 Sat by Pulse Oximetry 97 05/12/23 11:04 Intake & Output: Intake & Output 05/10/23 05/11/23 05/12/23 05/13/23 11:59 11:59 11:59 11:59 Intake Total 938 Balance 938 Weight 75.2 kg - Lab Result Diagrams: 05/12/23 04:55 05/12/23 04:55 Lab Results-Last 24 Hrs: Lab Results-Last 24 Hours 05/11/23 05/11/23 05/11/23 Range/Units 00:16 00:16 14:10 WBC 5.8 (4.0-10.5) x10^3/uL RBC 3.01 L (4.1-5.6) x10^6/uL Hgb 8.4 L 6.2 L* (12.5-18.0) g/dL Hct 27.9 L 21.7 L (42-50) % MCV 72.1 L (78-100) fL MCH 20.6 L (26-32) pg MCHC 28.6 L (32-36) g/dL RDW 15.2 H (11.5-14.0) % Plt Count 241 (150-450) x10^3/uL MPV 10.8 (7.5-11.0) fL Gran % 77.7 H (36.0-66.0) % Immature Gran % (Auto) 0.2 (0.00-0.4) % Reticulocyte % (Auto) (0.6-2.6) % Nucleat RBC Rel Count 0.0 (0.00-0.1) % Eos # (Auto) 0.17 (0-0.5) x10^3/uL Immature Gran # (Auto) 0.01 (0.00-0.03) x10^3u/L Absolute Lymphs (auto) 0.65 L (1.0-4.6) x10^3/uL Absolute Monos (auto) 0.45 (0.0-1.3) x10^3/uL Absolute Nucleated RBC 0.00 (0.00-0.01) x10^3u/L Lymphocytes % 11.2 L (24.0-44.0) % Monocytes % 7.7 (0.0-12.0) % Eosinophils % 2.9 (0.00-5.0) % Basophils % 0.3 (0.0-0.4) % Absolute Granulocytes 4.52 (1.4-6.9) x10^3/uL Basophils # 0.02 (0-0.4) x10^3/uL Retic Hgb Content (28-38) pg Sodium (137-145) mmol/L Potassium (3.5-5.1) mmol/L Chloride (98-107) mmol/L Carbon Dioxide (22-30) mmol/L Anion Gap (5-15) MEQ/L BUN (9-20) mg/dL Creatinine (0.66-1.25) mg/dL Estimated GFR ML/MIN Glucose (74-106) mg/dL Calcium (8.4-10.2) mg/dL Magnesium (1.6-2.3) mg/dL Iron (49-181) ug/dL TIBC (261-497) ug/dL Iron Saturation (20-39) % Ferritin (17.9-464) ng/mL Total Bilirubin (0.2-1.3) mg/dL AST (17-59) U/L ALT (0-50) U/L Alkaline Phosphatase (38-126) U/L Lactate Dehydrogenase (120-246) U/L Troponin I 0.647 H* (0.000-0.034) ng/mL Serum Total Protein (6.3-8.2) g/dL Albumin (3.5-5.0) g/dL Vitamin B12 (239-931) pg/mL Stl Occult Blood (IFOB) (NEGATIVE) ABO Group Rh Factor Antibody Screen (NEGATIVE) Crossmatch (COMPATIBLE) 05/11/23 05/11/23 05/11/23 Range/Units 14:10 14:10 14:10 WBC (4.0-10.5) x10^3/uL RBC (4.1-5.6) x10^6/uL Hgb (12.5-18.0) g/dL Hct (42-50) % MCV (78-100) fL MCH (26-32) pg MCHC (32-36) g/dL RDW (11.5-14.0) % Plt Count (150-450) x10^3/uL MPV (7.5-11.0) fL Gran % (36.0-66.0) % Immature Gran % (Auto) (0.00-0.4) % Reticulocyte % (Auto) (0.6-2.6) % Nucleat RBC Rel Count (0.00-0.1) % Eos # (Auto) (0-0.5) x10^3/uL Immature Gran # (Auto) (0.00-0.03) x10^3u/L Absolute Lymphs (auto) (1.0-4.6) x10^3/uL Absolute Monos (auto) (0.0-1.3) x10^3/uL Absolute Nucleated RBC (0.00-0.01) x10^3u/L Lymphocytes % (24.0-44.0) % Monocytes % (0.0-12.0) % Eosinophils % (0.00-5.0) % Basophils % (0.0-0.4) % Absolute Granulocytes (1.4-6.9) x10^3/uL Basophils # (0-0.4) x10^3/uL Retic Hgb Content (28-38) pg Sodium 133 L (137-145) mmol/L Potassium 4.8 (3.5-5.1) mmol/L Chloride 101 (98-107) mmol/L Carbon Dioxide 22 (22-30) mmol/L Anion Gap 14.2 (5-15) MEQ/L BUN 20 (9-20) mg/dL Creatinine 0.98 (0.66-1.25) mg/dL Estimated GFR 79.9 ML/MIN Glucose 117 H (74-106) mg/dL Calcium 9.3 (8.4-10.2) mg/dL Magnesium (1.6-2.3) mg/dL Iron (49-181) ug/dL TIBC (261-497) ug/dL Iron Saturation (20-39) % Ferritin (17.9-464) ng/mL Total Bilirubin 0.50 (0.2-1.3) mg/dL AST 47 (17-59) U/L ALT 37 (0-50) U/L Alkaline Phosphatase 121 (38-126) U/L Lactate Dehydrogenase (120-246) U/L Troponin I < 0.012 (0.000-0.034) ng/mL Serum Total Protein 7.7 (6.3-8.2) g/dL Albumin 4.5 (3.5-5.0) g/dL Vitamin B12 (239-931) pg/mL Stl Occult Blood (IFOB) (NEGATIVE) ABO Group O Rh Factor POSITIVE Antibody Screen NEGATIVE (NEGATIVE) Crossmatch COMPATIBLE (COMPATIBLE) 05/11/23 05/11/23 05/11/23 Range/Units 14:10 14:10 14:10 WBC (4.0-10.5) x10^3/uL RBC (4.1-5.6) x10^6/uL Hgb (12.5-18.0) g/dL Hct (42-50) % MCV (78-100) fL MCH (26-32) pg MCHC (32-36) g/dL RDW (11.5-14.0) % Plt Count (150-450) x10^3/uL MPV (7.5-11.0) fL Gran % (36.0-66.0) % Immature Gran % (Auto) (0.00-0.4) % Reticulocyte % (Auto) (0.6-2.6) % Nucleat RBC Rel Count (0.00-0.1) % Eos # (Auto) (0-0.5) x10^3/uL Immature Gran # (Auto) (0.00-0.03) x10^3u/L Absolute Lymphs (auto) (1.0-4.6) x10^3/uL Absolute Monos (auto) (0.0-1.3) x10^3/uL Absolute Nucleated RBC (0.00-0.01) x10^3u/L Lymphocytes % (24.0-44.0) % Monocytes % (0.0-12.0) % Eosinophils % (0.00-5.0) % Basophils % (0.0-0.4) % Absolute Granulocytes (1.4-6.9) x10^3/uL Basophils # (0-0.4) x10^3/uL Retic Hgb Content (28-38) pg Sodium (137-145) mmol/L Potassium (3.5-5.1) mmol/L Chloride (98-107) mmol/L Carbon Dioxide (22-30) mmol/L Anion Gap (5-15) MEQ/L BUN (9-20) mg/dL Creatinine (0.66-1.25) mg/dL Estimated GFR ML/MIN Glucose (74-106) mg/dL Calcium (8.4-10.2) mg/dL Magnesium 2.1 (1.6-2.3) mg/dL Iron 25 L (49-181) ug/dL TIBC 505 H (261-497) ug/dL Iron Saturation 5 L (20-39) % Ferritin 6.53 L (17.9-464) ng/mL Total Bilirubin (0.2-1.3) mg/dL AST (17-59) U/L ALT (0-50) U/L Alkaline Phosphatase (38-126) U/L Lactate Dehydrogenase 230 (120-246) U/L Troponin I (0.000-0.034) ng/mL Serum Total Protein (6.3-8.2) g/dL Albumin (3.5-5.0) g/dL Vitamin B12 293 (239-931) pg/mL Stl Occult Blood (IFOB) (NEGATIVE) ABO Group Rh Factor Antibody Screen (NEGATIVE) Crossmatch COMPATIBLE (COMPATIBLE) 05/11/23 05/11/23 05/12/23 Range/Units 17:55 17:55 04:55 WBC (4.0-10.5) x10^3/uL RBC (4.1-5.6) x10^6/uL Hgb (12.5-18.0) g/dL Hct (42-50) % MCV (78-100) fL MCH (26-32) pg MCHC (32-36) g/dL RDW (11.5-14.0) % Plt Count (150-450) x10^3/uL MPV (7.5-11.0) fL Gran % (36.0-66.0) % Immature Gran % (Auto) (0.00-0.4) % Reticulocyte % (Auto) 0.9 (0.6-2.6) % Nucleat RBC Rel Count (0.00-0.1) % Eos # (Auto) (0-0.5) x10^3/uL Immature Gran # (Auto) (0.00-0.03) x10^3u/L Absolute Lymphs (auto) (1.0-4.6) x10^3/uL Absolute Monos (auto) (0.0-1.3) x10^3/uL Absolute Nucleated RBC (0.00-0.01) x10^3u/L Lymphocytes % (24.0-44.0) % Monocytes % (0.0-12.0) % Eosinophils % (0.00-5.0) % Basophils % (0.0-0.4) % Absolute Granulocytes (1.4-6.9) x10^3/uL Basophils # (0-0.4) x10^3/uL Retic Hgb Content 19.0 L (28-38) pg Sodium (137-145) mmol/L Potassium (3.5-5.1) mmol/L Chloride (98-107) mmol/L Carbon Dioxide (22-30) mmol/L Anion Gap (5-15) MEQ/L BUN (9-20) mg/dL Creatinine (0.66-1.25) mg/dL Estimated GFR ML/MIN Glucose (74-106) mg/dL Calcium (8.4-10.2) mg/dL Magnesium (1.6-2.3) mg/dL Iron (49-181) ug/dL TIBC (261-497) ug/dL Iron Saturation (20-39) % Ferritin (17.9-464) ng/mL Total Bilirubin (0.2-1.3) mg/dL AST (17-59) U/L ALT (0-50) U/L Alkaline Phosphatase (38-126) U/L Lactate Dehydrogenase (120-246) U/L Troponin I 0.122 H* 0.708 H* (0.000-0.034) ng/mL Serum Total Protein (6.3-8.2) g/dL Albumin (3.5-5.0) g/dL Vitamin B12 (239-931) pg/mL Stl Occult Blood (IFOB) (NEGATIVE) ABO Group Rh Factor Antibody Screen (NEGATIVE) Crossmatch (COMPATIBLE) 05/12/23 05/12/23 05/12/23 Range/Units 04:55 04:55 06:54 WBC 7.2 (4.0-10.5) x10^3/uL RBC 3.58 L (4.1-5.6) x10^6/uL Hgb 8.1 L D (12.5-18.0) g/dL Hct 26.8 L (42-50) % MCV 74.9 L (78-100) fL MCH 22.6 L (26-32) pg MCHC 30.2 L (32-36) g/dL RDW 17.8 H (11.5-14.0) % Plt Count 248 (150-450) x10^3/uL MPV 11.3 H (7.5-11.0) fL Gran % 80.9 H (36.0-66.0) % Immature Gran % (Auto) 0.3 (0.00-0.4) % Reticulocyte % (Auto) (0.6-2.6) % Nucleat RBC Rel Count 0.0 (0.00-0.1) % Eos # (Auto) 0.04 (0-0.5) x10^3/uL Immature Gran # (Auto) 0.02 (0.00-0.03) x10^3u/L Absolute Lymphs (auto) 0.71 L (1.0-4.6) x10^3/uL Absolute Monos (auto) 0.59 (0.0-1.3) x10^3/uL Absolute Nucleated RBC 0.00 (0.00-0.01) x10^3u/L Lymphocytes % 9.9 L (24.0-44.0) % Monocytes % 8.2 (0.0-12.0) % Eosinophils % 0.6 (0.00-5.0) % Basophils % 0.1 (0.0-0.4) % Absolute Granulocytes 5.82 (1.4-6.9) x10^3/uL Basophils # 0.01 (0-0.4) x10^3/uL Retic Hgb Content (28-38) pg Sodium 135 L (137-145) mmol/L Potassium 4.4 (3.5-5.1) mmol/L Chloride 103 (98-107) mmol/L Carbon Dioxide 22 (22-30) mmol/L Anion Gap 14.4 (5-15) MEQ/L BUN 16 (9-20) mg/dL Creatinine 0.81 (0.66-1.25) mg/dL Estimated GFR 91.4 ML/MIN Glucose 115 H (74-106) mg/dL Calcium 9.4 (8.4-10.2) mg/dL Magnesium (1.6-2.3) mg/dL Iron (49-181) ug/dL TIBC (261-497) ug/dL Iron Saturation (20-39) % Ferritin (17.9-464) ng/mL Total Bilirubin 1.10 (0.2-1.3) mg/dL AST 45 (17-59) U/L ALT 36 (0-50) U/L Alkaline Phosphatase 111 (38-126) U/L Lactate Dehydrogenase (120-246) U/L Troponin I (0.000-0.034) ng/mL Serum Total Protein 7.8 (6.3-8.2) g/dL Albumin 4.4 (3.5-5.0) g/dL Vitamin B12 (239-931) pg/mL Stl Occult Blood (IFOB) NEGATIVE (NEGATIVE) ABO Group Rh Factor Antibody Screen (NEGATIVE) Crossmatch (COMPATIBLE) 01/24/24 Range/Units 10:30 WBC (4.0-10.5) x10^3/uL RBC (4.1-5.6) x10^6/uL Hgb (12.5-18.0) g/dL Hct (42-50) % MCV (78-100) fL MCH (26-32) pg MCHC (32-36) g/dL RDW (11.5-14.0) % Plt Count (150-450) x10^3/uL MPV (7.5-11.0) fL Gran % (36.0-66.0) % Immature Gran % (Auto) (0.00-0.4) % Reticulocyte % (Auto) (0.6-2.6) % Nucleat RBC Rel Count (0.00-0.1) % Eos # (Auto) (0-0.5) x10^3/uL Immature Gran # (Auto) (0.00-0.03) x10^3u/L Absolute Lymphs (auto) (1.0-4.6) x10^3/uL Absolute Monos (auto) (0.0-1.3) x10^3/uL Absolute Nucleated RBC (0.00-0.01) x10^3u/L Lymphocytes % (24.0-44.0) % Monocytes % (0.0-12.0) % Eosinophils % (0.00-5.0) % Basophils % (0.0-0.4) % Absolute Granulocytes (1.4-6.9) x10^3/uL Basophils # (0-0.4) x10^3/uL Retic Hgb Content (28-38) pg Sodium (137-145) mmol/L Potassium (3.5-5.1) mmol/L Chloride (98-107) mmol/L Carbon Dioxide (22-30) mmol/L Anion Gap (5-15) MEQ/L BUN (9-20) mg/dL Creatinine (0.66-1.25) mg/dL Estimated GFR ML/MIN Glucose (74-106) mg/dL Calcium (8.4-10.2) mg/dL Magnesium (1.6-2.3) mg/dL Iron (49-181) ug/dL TIBC (261-497) ug/dL Iron Saturation (20-39) % Ferritin (17.9-464) ng/mL Total Bilirubin (0.2-1.3) mg/dL AST (17-59) U/L ALT (0-50) U/L Alkaline Phosphatase (38-126) U/L Lactate Dehydrogenase (120-246) U/L Troponin I 0.428 H* (0.000-0.034) ng/mL Serum Total Protein (6.3-8.2) g/dL Albumin (3.5-5.0) g/dL Vitamin B12 (239-931) pg/mL Stl Occult Blood (IFOB) (NEGATIVE) ABO Group Rh Factor Antibody Screen (NEGATIVE) Crossmatch (COMPATIBLE) - Procedures and Test Procedures and Tests throughout Hospitalization: Therapy Orders & Screens 05/11/23 17:06 PT Eval & Treat ( Order) ONCE Reason for Eval:: weakness Diagnosis: Microcytic, hypochromic anemia OT Eval and Treat (MD Order) ONCE Comment: Physician Instructions: Reason For Exam: Diagnosis: Microcytic, hypochromic anemia 05/12/23 07:00 EKG ROUTINE Comment: Diagnosis: Microcytic, hypochromic anemia Discharge Exam General Appearance: no apparent distress Neurologic Exam: alert, oriented x 3, cooperative Eye Exam: PERRL Ears, Nose, Throat Exam: normal ENT inspection Neck Exam: normal inspection Respiratory Exam: normal breath sounds, lungs clear Cardiovascular Exam: regular rate/rhythm, normal heart sounds Gastrointestinal/Abdomen Exam: soft, normal bowel sounds Male Genitalia Exam: deferred Rectal Exam: deferred Back Exam: normal inspection Extremity Exam: normal inspection Skin Exam: warm, pale Final Diagnosis/Problem List - Final Discharge Diagnosis/Problem (1) Microcytic hypochromic anemia Current Visit: Yes Status: Acute Code(s): D50.9 - IRON DEFICIENCY ANEMIA, UNSPECIFIED (2) Hypertension Current Visit: Yes Status: Acute Code(s): I10 - ESSENTIAL (PRIMARY) HYPERTENSION (3) CAD (coronary artery disease) Current Visit: Yes Status: Acute Code(s): I25.10 - ATHSCL HEART DISEASE OF [place] CORONARY ARTERY W/O ANG PCTRS (4) Hyponatremia Current Visit: No Status: Chronic Code(s): E87.1 - HYPO-OSMOLALITY AND HYPONATREMIA - Discharge Disposition: Home, Self-Care Condition: Stable Prescriptions: New Ferrous Sulfate 325 mg [Feosol 325 mg] 325 mg PO DAILY 30 Days #30 tablet PANTOPRAZOLE 40 mg Tablet [Protonix 40MG Tablet] 40 mg PO DAILY 30 Days #30 tablet Continue Amlodipine Besylate 5 mg [Norvasc 5 mg] 5 mg PO DAILY Lisinopril 20 mg [Zestril 20 MG] 20 mg PO DAILY Gabapentin [Neurontin ] 100 mg PO TID Loratadine 10 mg [Claritin 10 mg] 10 mg PO DAILY Instructions: Anemia Caused by Low Iron, Adult (DC) Follow up with: EDUMNDO MEJIA MD [NON-STAFF PHY W/O PRIVILEGES] - 05/19/23 2:00 pm JEFERSON LANCASTER NP [Primary Care Provider] - 05/20/23 9:45 am Forms: Discharge Instructions
[2023-05-12 12:48] LABS: Hematocrit 29.5 % (42-50); Hemoglobin 8.9 g/dL (12.5-18.0)
[2023-05-13 15:33] LABS: Erythropoietin 61.2 mIU/mL (2.6-18.5)
[2023-05-13 17:07] LABS: Hematocrit 22.6 % (37.5-51.0)
== END 2023-05-12 13:25 | disposition home or self-care (01) ==
LOC: ED 13:41 → MED SURG 15:46
PROVIDERS: ADMIT Internal Medicine; ATTEND Internal Medicine
DX: D50.9 Iron deficiency anemia, unspecified (principal); I10 Essential (primary) hypertension; I25.10 Atherosclerotic heart disease of native coronary artery without angina pectoris; E87.1 Hypo-osmolality and hyponatremia; Z79.899 Other long term (current) drug therapy; Z20.828 Contact with and (suspected) exposure to other viral communicable diseases; Z95.0 Presence of cardiac pacemaker
CPT/HCPCS: 36000; 36415; 36430; 80053; 82607; 82668; 82728; 82747; 83010; 83540; 83550; 83615; 83735; 84484; 85014; 85018; 85025; 85045; 85046; 86850; 86900; 86901; 86922; 93005; 93041; 94760; 99285; 99291; G0328; P9016; Q3014; 82274; 93268; J1439; A9270-GY; G0378

== ENCOUNTER 2024-08-10 14:16 | Observation (INO) | payer MEDICARE, OTHER ==
[2024-08-10 14:56] LABS: Hematocrit 20.4 % (40.1-51.0)
[2024-08-10 14:58] LABS: Hemoglobin 6.3 g/dL (13.7-17.5)
--- NOTE | 2024-08-10 15:02 | ERPHSYRPT ---
- History of Present Illness Time Seen by Provider: 08/10/24 14:32 Source: patient Exam Limitations: no limitations Patient Subjective Stated Complaint: low hemoglobin Triage Nursing Assessment: Pt brought self to the ER, hypertensive, denies pain, pulses normal, skin n/w/d, feels tired, denies shortness of breath, denies chest pain, denies black stools, doesn't appear to be in any distress Physician History: 79-year-old male with history of hypertension, coronary artery disease with bypass, chronic anemia needing transfusions in the past, was supposed to take iron but has not been taking lately because of nausea associated with that presented in the ER after has blood work done at primary care which showed low hemoglobin in 6.8 checked this morning. Patient reports he was having some cramping in the legs and knew there is something wrong with it. Denies any chest pain palpitations or shortness of breath associated with. Denies any abdominal pain nausea or vomiting. Has no history of coffee-ground emesis, dark stool or hematemesis/hematochezia/hemoptysis. Patient had a colonoscopy and EGD done almost a year and a half ago which was negative. Patient does follow-up with [facility] hematology oncology but does not have any established diagnosis for the cause of his anemia. Allergies/Adverse Reactions: metronidazole Allergy (Intermediate, Verified 08/10/24 14:33) Difficulty Breathing ALSO HALLUCINATIONS azithromycin [From Zithromax] Allergy (Verified 08/10/24 14:33) cephalexin [From Keflex] Allergy (Verified 08/10/24 14:33) facial swelling, tongue buring Penicillins Allergy (Verified 08/10/24 14:33) Swelling of Tongue and Lips Home Medications: Amlodipine Besylate 5 mg [Norvasc 5 mg] 5 mg PO DAILY 01/12/17 [History] Lisinopril 20 mg [Zestril 20 MG] 20 mg PO DAILY 01/16/17 [History] Hx Tetanus, Diphtheria Vaccination/Date Given: Yes Hx Influenza Vaccination/Date Given: No Hx Pneumococcal Vaccination/Date Given: Yes Travel Risk - International Travel Have you traveled outside of the country in past 3 weeks: No - Emerging Infectious Disease Are you exhibiting symptoms associated with any current EIDs: No - Review of Systems Constitutional: Fatigue Eyes: No Symptoms Ears, Nose, & Throat: No Symptoms Respiratory: No Symptoms Cardiac: No Symptoms Abdominal/Gastrointestinal: No Symptoms Genitourinary Symptoms: No Symptoms Musculoskeletal: Myalgias Skin: No Symptoms Neurological: No Symptoms Endocrine: No Symptoms Hematologic/Lymphatic: Anemia Immunological/Allergic: No Symptoms - Past Medical History Pertinent Past Medical History: Yes Neurological History: No Pertinent History ENT History: No Pertinent History Cardiac History: Angina, Coronary Artery Disease, Hypertension Respiratory History: No Pertinent History Endocrine Medical History: Hypothyroidism Musculoskeletal History: No Pertinent History GI Medical History: GERD, Gallbladder Disease History: No Pertinent History Psycho-Social History: No Pertinent History Male Reproductive Disorders: No Pertinent History Other Medical History: blood transfusions - Past Surgical History Past Surgical History: Yes Neuro Surgical History: No Pertinent History Cardiac: CABG Respiratory: No Pertinent History Gastrointestinal: Cholecystectomy Genitourinary: No Pertinent History Musculoskeletal: No Pertinent History Male Surgical History: No Pertinent History - Social History Smoking Status: Former smoker Exposure to second hand smoke: No Drug Use: none - Social Determinants of Health Will the patient participate in the screening: Yes Do you worry about a steady place to live?: No Do you have any problems with any of the following?: No known problems In the past 12 months,have you had to go without utilities?: No Transportation Issues: No Has anyone in your support network made you feel unsafe?: No Have you or anyone in your house had to go w/o enough food: No - Nursing Vital Signs Nursing Vital Signs: Initial Vital Signs Temperature 99.2 F 08/10/24 14:26 Pulse Rate 92 H 08/10/24 14:26 Respiratory Rate 19 08/10/24 14:26 Blood Pressure 145/97 08/10/24 14:26 O2 Sat by Pulse Oximetry 98 08/10/24 14:26 Pain Scale Pain Intensity 0 - Physical Exam General Appearance: no apparent distress, alert Eye Exam: pale conjunctivae Ears, Nose, Throat Exam: normal ENT inspection Neck Exam: normal inspection, supple, full range of motion Respiratory Exam: normal breath sounds, lungs clear Cardiovascular Exam: regular rate/rhythm, normal heart sounds Gastrointestinal/Abdomen Exam: soft, normal bowel sounds, No tenderness Extremity Exam: normal inspection, normal range of motion Neurologic Exam: alert, oriented x 3, cooperative, food and nutrition services supervisor II-XII nml as tested Skin Exam: normal color SpO2 Interpretation: normal SpO2: 98 O2 Delivery: Room Air Ordered Tests: Active Orders 24 hr Category Date Time Status HEMOGLOBIN AND HEMATOCRIT Stat Lab 08/10/24 14:45 Completed Transfer Order Routine Transfer 08/10/24 Ordered Medication Summary Generic Name Dose Route Start Last Admin Trade Name Bobbi PRN Reason Stop Dose Admin Sodium Chloride 1,000 mls @ 125 mls/hr 08/10/24 16:15 08/10/24 16:14 Sodium Chloride 0.9% 1000 Ml IV 08/10/24 22:00 125 mls/hr .Q8H NUNO Administration Lab/Rad Data: Laboratory Result Diagrams 08/10/24 14:45 Laboratory Results 08/10/24 08/10/24 08/10/24 Range/Units 14:45 14:45 14:45 Hgb 6.3 L* (13.7-17.5) g/dL Hct 20.4 L (40.1-51.0) % ABO Group O Rh Factor POSITIVE Antibody Screen NEGATIVE (NEGATIVE) Crossmatch COMPATIBLE COMPATIBLE (COMPATIBLE) - Progress Progress: unchanged Progress Note: 08/10/24 17:00 79-year-old is evaluated in the ER for anemia. Patient has history of anemia with transfusions in the past. Hemoglobin was 6.8 and checked earlier and I have repeated and is 6.2. Discussed with patient about transfusion risk and benefits in detail and he wants to go ahead with transfusions. Patient has no difficulty breathing, no chest pain or palpitations, no signs of endorgan damage. He has chemistries done this morning which were fairly unremarkable, do not think needs to repeated. Discussed with Dr. Omer, reviewed history, workup and patient is admitted for transfusion. I have discussed plan with patient which she understands and agrees. Complexity of problems addressed: Acute moderate Complexity of data reviewed/analyzed: Moderate Risk of complication: Moderate to high Discussed with : Marisol Will see patient in: hospital (observation) Counseled pt/family regarding: lab results, diagnosis, need for follow-up Medical Desision Making - Discussion of managment Care discussed with:: hospitalist Reviewed:: Test results Agreed on:: Treatment plan, place in obs Will see patient: in hospital - Diagnostic Testing Diagnostic test were ordered, analyzed, and reviewed by me: Yes - Risk of complications The pt has a mod risk of morbidity or mortality based on: Need for prescription drug management The pt has a high risk of morbidity or mortality based on: Decision regarding hospitilization or escalation of hosp level of care - Departure Departure Disposition: Observation Clinical Impression: Microcytic anemia Condition: Stable Critical Care Time: No Referrals: JEFERSON LANCASTER NP [Primary Care Provider, [facility]] - Follow up/PCP as directed
[2024-08-10 15:46] LABS: ABO TYPING O; Antibody Screen NEGATIVE (NEGATIVE); RH TYPING POSITIVE
[2024-08-10 15:47] LABS: CROSS MATCH (PRBC) COMPATIBLE (COMPATIBLE)
[2024-08-10 15:48] LABS: CROSS MATCH (PRBC) COMPATIBLE (COMPATIBLE)
[2024-08-10] MEDS ORDERED: Sodium Chloride 0.9% 1000 ML 1,000 ML ONE (16:12)
[2024-08-10] MEDS: Sodium Chloride 0.9% 1000 ML 1,000 ML IV SCH (16:14)
--- NOTE | 2024-08-10 17:49 | PCM.HP ---
History of Present Illness - Chief Complaint Chief Complaint: anemia Date: 08/10/24 History of Present Illness: is a 79 year old male with a past medical history of hypertension, coronary artery disease status post bypass surgery, and chronic anemia requiring previous blood transfusions presented to the emergency department after recent lab work at his primary care provider revealed a hemoglobin level of 6.8 earlier this morning. The patient has a history of being prescribed iron supplements but reports he has not been taking them recently due to nausea. He presented with complaints of leg cramping and stated he felt something was wrong. He denies experiencing chest pain, palpitations, shortness of breath, abdominal pain, nausea, or vomiting. He also denies any history of gastrointestinal bleeding, including coffee-ground emesis, dark stools, hematemesis, hematochezia, or hemoptysis. The patient underwent a colonoscopy and EGD approximately a year and a half ago, both of which were unremarkable. He follows up with hematology/oncology at [facility] but has not yet been given a definitive diagnosis for his chronic anemia. Two units of packed red blood cells (PRBCs) were ordered and transfusion was initiated in the emergency department. He will continue to receive blood transfusions as an inpatient with close monitoring of hemoglobin levels. The patient currently denies any additional concerns. - Review of Systems Constitutional: No Fever, No Chills Eyes: No Symptoms Ears, Nose, & Throat: No Symptoms Respiratory: No Cough, No Short Of Breath Cardiac: No Chest Pain, No Edema, No Syncope Abdominal/Gastrointestinal: No Abdominal Pain, No Nausea, No Vomiting, No Diarrhea Genitourinary Symptoms: No Dysuria Musculoskeletal: No Back Pain, No Neck Pain Skin: No Rash Neurological: No Dizziness, No Focal Weakness, No Sensory Changes Psychological: No Symptoms Endocrine: No Symptoms Hematologic/Lymphatic: No Symptoms Immunological/Allergic: No Symptoms Medications & Allergies Home Medications: Home Medication List Amlodipine Besylate 5 mg [Norvasc 5 mg] 5 mg PO DAILY 01/12/17 [History Confirmed 08/10/24] Lisinopril 20 mg [Zestril 20 MG] 20 mg PO DAILY 01/16/17 [History Confirmed 08/10/24] Allergies/Adverse Reactions: Allergies Allergy/AdvReac Type Severity Reaction Status Date / Time metronidazole Allergy Intermediate Difficulty Verified 08/10/24 14:33 Breathing azithromycin [From Zithromax] Allergy Verified 08/10/24 14:33 cephalexin [From Keflex] Allergy facial Verified 08/10/24 14:33 swelling, tongue buring Penicillins Allergy Swelling Verified 08/10/24 14:33 of Tongue and Lips - Past Medical History Past Medical History: Yes Neurological History: No Pertinent History ENT History: No Pertinent History Cardiac History: Angina, Coronary Artery Disease, Hypertension Respiratory History: No Pertinent History Endocrine Medical History: Hypothyroidism Musculoskelatal History: No Pertinent History GI Medical History: GERD, Gallbladder Disease History: No Pertinent History Pyscho-Social History: No Pertinent History Male Reproductive Disorders: No Pertinent History Comment: blood transfusions - Past Surgical History Past Surgical History: Yes Neuro Surgical History: No Pertinent History Cardiac History: CABG Respiratory Surgery: No Pertinent History GI Surgical History: Cholecystectomy Genitourinary Surgical Hx: No Pertinent History Musculskeletal Surgical Hx: No Pertinent History Male Surgical History: No Pertinent History - Social History Smoking Status: Former smoker How long have you smoked: 40 yrs Exposure to second hand smoke: No Alcohol: None Drug Use: none - Social Determinants of Health Will the patient participate in the screening: Yes Do you worry about a steady place to live?: No Do you have any problems with any of the following?: No known problems In the past 12 months,have you had to go without utilities?: No Have you or anyone in your house had to go without enough: No Transportation Issues: No Has anyone in your support network made you feel unsafe?: No Does the patient want assistance with any of the above?: No - Physical Exam Vital Signs: Vital Signs - 24 hr Temp Pulse Resp BP BP Pulse Ox 08/10/24 17:37 98 08/10/24 17:30 83 16 177/86 100 08/10/24 17:13 83 17 175/91 08/10/24 17:00 75 14 162/91 99 08/10/24 16:44 75 17 180/94 99 08/10/24 16:30 76 20 164/97 99 08/10/24 16:25 82 17 162/90 98 08/10/24 16:00 76 16 158/86 99 08/10/24 15:30 78 15 152/94 97 08/10/24 15:17 84 18 137/64 98 08/10/24 15:00 83 19 137/64 98 08/10/24 14:26 99.2 F 92 H 19 145/97 98 General Appearance: no apparent distress, alert Neurologic Exam: alert, oriented x 3, cooperative, normal mood/affect, nml cerebellar function, nml station & gait, sensation nml, No motor deficits Eye Exam: PERRL/EOMI, eyes nml inspection Ears, Nose, Throat Exam: normal ENT inspection, TMs normal, pharynx normal, moist mucous membranes Neck Exam: normal inspection, non-tender, supple, full range of motion Respiratory Exam: normal breath sounds, lungs clear, No respiratory distress Cardiovascular Exam: regular rate/rhythm, normal heart sounds, normal peripheral pulses Gastrointestinal/Abdomen Exam: soft, normal bowel sounds, No tenderness, No mass Back Exam: normal inspection, normal range of motion, No CVA tenderness, No vertebral tenderness Extremity Exam: normal inspection, normal range of motion, pelvis stable Skin Exam: normal color, warm, dry, No rash Lymphatic Exam: No adenopathy Results - Labs Lab/Micro Results: Lab Results-Last 24 Hours 08/10/24 08/10/24 08/10/24 Range/Units 14:45 14:45 14:45 Hgb 6.3 L* (13.7-17.5) g/dL Hct 20.4 L (40.1-51.0) % ABO Group O Rh Factor POSITIVE Antibody Screen NEGATIVE (NEGATIVE) Crossmatch COMPATIBLE COMPATIBLE (COMPATIBLE) Assessment/Plan (1) Iron deficiency anemia Current Visit: Yes Status: Acute Assessment & Plan: - Pt reports he has not been taking iron supplemst d/t nausea - check Iron panel - Hgb 6.3 on admission- 2 units PRBC ordered- recheck 1 hour after completed - CBC, CMP reviewed [employer] - Iron sat 21- restart PO med - Tele - Follows hematology OP Code(s): D50.9 - IRON DEFICIENCY ANEMIA, UNSPECIFIED (2) CAD (coronary artery disease) Current Visit: No Status: Chronic Assessment & Plan: - noted - continue home meds Code(s): I25.10 - ATHSCL HEART DISEASE OF [place] CORONARY ARTERY W/O ANG PCTRS (3) Hypertension Current Visit: No Status: Chronic Assessment & Plan: - BP elevated - Continue home meds - Hydralizine PRN VTE: SCD Next of KIN: Cecile Jose D- Spouse D/C plan: tomorrow Code status: Full Code(s): I10 - ESSENTIAL (PRIMARY) HYPERTENSION Telemedicine Encounter - Telemedicine Encounter Telemedicine Encounter: "The entirety of this encounter was performed via Telemedicine" This visit was performed using real-time audio and video connection between my location and thepatients locationwith the assistance of a surrogateat the patients location. Written or verbal consent was obtained from the patient/guardian to perform this visit [facility]. Any patient questions regarding the telemedicine interaction were answered.
[2024-08-10] MEDS ORDERED: Zofran 4 MG/2 ML VIAL IV PRN (17:51)
[2024-08-10] MEDS ORDERED: TYLENOL 325 MG PO PRN (17:51)
[2024-08-10] MEDS ORDERED: APRESOLINE 20 MG/ML INJ IV PRN (18:01)
[2024-08-11 05:51] LABS: Hematocrit 29.4 % (40.1-51.0); Hemoglobin 9.1 g/dL (13.7-17.5); Mean Corpuscular Hemoglobin 23.8 pg (25.7-32.2); Mean Platelet Volume 12.7 fL (9.4-12.4); Platelet Count 224 x10^3/uL (163-337); Red Blood Count 3.82 x10^6/uL (4.63-6.08); White Blood Count 6.8 x10^3/uL (4.23-9.07)
[2024-08-11 06:05] LABS: ALBUMIN 4.7 g/dL (3.5-5.0); ANION GAP 17.5 MEQ/L (5-15); BILIRUBIN,TOTAL 1.1 mg/dL (0.2-1.3); Calcium 9.3 mg/dL (8.4-10.2); Creatinine 1 0.88 mg/dL (0.66-1.25); EST GLOMERULAR FILTRATION RATE 88.6 ML/MIN; Potassium 4.6 mmol/L (3.5-5.1); Total Protein 7.8 g/dL (6.3-8.2)
[2024-08-11 07:33] VITALS: RESP 22; TEMP 97.3; O2SAT 99
--- NOTE | 2024-08-11 08:49 | PCM.DS ---
Discharge Summary Date of Admission: 08/10/24 17:40 Date of Discharge: 08/11/24 Admitting Physician: GERALD WEINSTEIN MD Primary Care Provider: JEFERSON LANCASTER Allergies Allergies metronidazole Allergy (Intermediate, Verified 08/10/24 14:33) Difficulty Breathing ALSO HALLUCINATIONS azithromycin [From Zithromax] Allergy (Verified 08/10/24 14:33) cephalexin [From Keflex] Allergy (Verified 08/10/24 14:33) facial swelling, tongue buring Penicillins Allergy (Verified 08/10/24 14:33) Swelling of Tongue and Lips Hospital Summary - Hospital Course Hospital Course: 08/10/24 is a 79 year old male with a past medical history of hypertension, coronary artery disease status post bypass surgery, and chronic anemia requiring previous blood transfusions presented to the emergency department after recent lab work at his primary care provider revealed a hemoglobin level of 6.8 earlier this morning. The patient has a history of being prescribed iron supplements but reports he has not been taking them recently due to nausea. He presented with complaints of leg cramping and stated he felt something was wrong. He denies experiencing chest pain, palpitations, shortness of breath, abdominal pain, nausea, or vomiting. He also denies any history of gastrointestinal bleeding, including coffee-ground emesis, dark stools, hematemesis, hematochezia, or hemoptysis. The patient underwent a colonoscopy and EGD approximately a year and a half ago, both of which were unremarkable. He follows up with hematology/oncology at [facility] but has not yet been given a definitive diagnosis for his chronic anemia. Two units of packed red blood cells (PRBCs) were ordered and transfusion was initiated in the emergency department. He will continue to receive blood transfusions as an inpatient with close monitoring of hemoglobin levels. The patient currently denies any additional concerns. 08/11/24 Pt sitting up in the chair today. He states he feels better and would like to go home. Hgb 9.1 after transfusions yesterday. Will make him a f/u appointment with Dr. Gamez- hematology who he has seen in the past for iron def. anemia. BP elevated this AM, meds gave early. If Bp is ok pt may d/c home today. Pt will need to f/u with MARIJA Garland for further management- appointment made. Pt denies any further concerns at this time. - Vitals & Intake/Output Vital Signs: Vital Signs Temperature 97.3 F 08/11/24 07:32 Pulse Rate 73 08/11/24 07:32 Respiratory Rate 22 08/11/24 07:32 Blood Pressure 163/76 08/11/24 07:32 O2 Sat by Pulse Oximetry 99 08/11/24 07:32 Intake & Output: Intake & Output 08/08/24 08/09/24 08/10/24 08/11/24 11:59 11:59 11:59 11:59 Intake Total 1500 Balance 1500 Weight 73 kg - Lab Result Diagrams: 08/11/24 05:00 08/11/24 05:00 Lab Results-Last 24 Hrs: Lab Results-Last 24 Hours 08/10/24 08/10/24 08/10/24 Range/Units 14:45 14:45 14:45 WBC (4.23-9.07) x10^3/uL RBC (4.63-6.08) x10^6/uL Hgb 6.3 L* (13.7-17.5) g/dL Hct 20.4 L (40.1-51.0) % MCV (79.0-92.2) fL MCH (25.7-32.2) pg MCHC (32.3-36.5) g/dL RDW (11.6-14.4) % Plt Count (163-337) x10^3/uL MPV (9.4-12.4) fL Sodium (135-145) mmol/L Potassium (3.5-5.1) mmol/L Chloride (98-107) mmol/L Carbon Dioxide (22-30) mmol/L Anion Gap (5-15) MEQ/L BUN (9-20) mg/dL Creatinine (0.66-1.25) mg/dL Estimated GFR ML/MIN Glucose (74-106) mg/dL Calcium (8.4-10.2) mg/dL Total Bilirubin (0.2-1.3) mg/dL AST (17-59) U/L ALT (0-50) U/L Alkaline Phosphatase (38-126) U/L Serum Total Protein (6.3-8.2) g/dL Albumin (3.5-5.0) g/dL ABO Group O Rh Factor POSITIVE Antibody Screen NEGATIVE (NEGATIVE) Crossmatch COMPATIBLE COMPATIBLE (COMPATIBLE) 08/11/24 08/11/24 Range/Units 05:00 05:00 WBC 6.8 (4.23-9.07) x10^3/uL RBC 3.82 L (4.63-6.08) x10^6/uL Hgb 9.1 L D (13.7-17.5) g/dL Hct 29.4 L (40.1-51.0) % MCV 77.0 L (79.0-92.2) fL MCH 23.8 L (25.7-32.2) pg MCHC 31.0 L (32.3-36.5) g/dL RDW 16.0 H (11.6-14.4) % Plt Count 224 (163-337) x10^3/uL MPV 12.7 H (9.4-12.4) fL Sodium 134 L (135-145) mmol/L Potassium 4.6 (3.5-5.1) mmol/L Chloride 102 (98-107) mmol/L Carbon Dioxide 20 L (22-30) mmol/L Anion Gap 17.5 H (5-15) MEQ/L BUN 18 (9-20) mg/dL Creatinine 0.88 (0.66-1.25) mg/dL Estimated GFR 88.6 ML/MIN Glucose 102 (74-106) mg/dL Calcium 9.3 (8.4-10.2) mg/dL Total Bilirubin 1.10 (0.2-1.3) mg/dL AST 50 (17-59) U/L ALT 30 (0-50) U/L Alkaline Phosphatase 107 (38-126) U/L Serum Total Protein 7.8 (6.3-8.2) g/dL Albumin 4.7 (3.5-5.0) g/dL ABO Group Rh Factor Antibody Screen (NEGATIVE) Crossmatch (COMPATIBLE) Discharge Exam General Appearance: no apparent distress, alert Neurologic Exam: alert, oriented x 3, cooperative, normal mood/affect, nml cerebellar function, sensation nml, No motor deficits Eye Exam: PERRL, EOMI, eyes nml inspection Ears, Nose, Throat Exam: normal ENT inspection, pharynx normal, moist mucous membranes Neck Exam: normal inspection, non-tender, supple, full range of motion Respiratory Exam: normal breath sounds, lungs clear, No respiratory distress Cardiovascular Exam: regular rate/rhythm, normal heart sounds Gastrointestinal/Abdomen Exam: soft, No tenderness, No mass Male Genitalia Exam: deferred Rectal Exam: deferred Back Exam: normal inspection, normal range of motion, No CVA tenderness, No vertebral tenderness Extremity Exam: normal inspection, normal range of motion Skin Exam: normal color, warm, dry Final Diagnosis/Problem List - Final Discharge Diagnosis/Problem (1) Iron deficiency anemia Current Visit: Yes Status: Acute Code(s): D50.9 - IRON DEFICIENCY ANEMIA, UNSPECIFIED (2) CAD (coronary artery disease) Current Visit: No Status: Chronic Code(s): I25.10 - ATHSCL HEART DISEASE OF [place] CORONARY ARTERY W/O ANG PCTRS (3) Hypertension Current Visit: No Status: Chronic Assessment & Plan: (1) Iron deficiency anemia Current Visit: Yes Status: Acute Assessment & Plan: - Pt reports he has not been taking iron supplemst d/t nausea - check Iron panel - Hgb 6.3 on admission- 2 units PRBC ordered- recheck 1 hour after completed - CBC, CMP reviewed [employer] - Iron sat 21- restart PO med - Tele - Follows hematology OP 08/11 - Hgb 9.1 - F/U with Hematology- appointment made. - Continue Ferrous sulfate Code(s): D50.9 - IRON DEFICIENCY ANEMIA, UNSPECIFIED (2) CAD (coronary artery disease) Current Visit: No Status: Chronic Assessment & Plan: - noted - continue home meds Code(s): I25.10 - ATHSCL HEART DISEASE OF [place] CORONARY ARTERY W/O ANG PCTRS (3) Hypertension Current Visit: No Status: Chronic Assessment & Plan: - BP elevated - Continue home meds - Hydralizine PRN 08/11 - BP elevated this AM if after meds august d/c - Will need OP f/u for better control with PCP Code(s): I10 - ESSENTIAL (PRIMARY) HYPERTENSION - Discharge Discharge Date: 08/11/24 Disposition: Home, Self-Care Condition: Stable Prescriptions: New Ferrous Sulfate 325 mg [Feosol 325 mg] 325 mg PO DAILY 30 Days #30 tablet Continue Amlodipine Besylate 5 mg [Norvasc 5 mg] 5 mg PO DAILY Lisinopril 20 mg [Zestril 20 MG] 20 mg PO DAILY Follow up with: EDMUNDO GAMEZ MD [NON-STAFF PHY W/O PRIVILEGES, HEMATOLOGY] JEFERSON LANCASTER NP [Primary Care Provider, [facility]]
[2024-08-11] MEDS: NORVASC 5 MG PO SCH (09:09)
[2024-08-11] MEDS: FEOSOL 325 MG PO SCH (09:09)
[2024-08-11] MEDS: Zestril 20 MG PO SCH (09:09)
[2024-08-11 10:31] VITALS: BP 154/70; PULSE 74
== END 2024-08-11 11:10 | disposition home or self-care (01) ==
LOC: ED 14:16 → MED SURG 17:40
PROVIDERS: ADMIT Internal Medicine; ATTEND Internal Medicine
DX: D50.9 Iron deficiency anemia, unspecified (principal); I25.10 Atherosclerotic heart disease of native coronary artery without angina pectoris; I10 Essential (primary) hypertension; Z79.899 Other long term (current) drug therapy; Z95.0 Presence of cardiac pacemaker
CPT/HCPCS: 36415; 36430; 80053; 85014; 85018; 85027; 86850; 86900; 86901; 86922; 93268; 99285; G0378; P9016; Q3014; A9270-GY